=== PATIENT | female | born 1940 | race Caucasian/White ===

== ENCOUNTER → 2017-10-15 | Outpatient (CLI) | payer MEDICARE ==
[2017-10-15 10:29] LABS: Basophils # (A) 0.1 k/uL (0-0.2); Basophils % (A) 1 %; Eosinophils # (A) 0.1 k/uL (0-0.7); Eosinophils % (A) 2 %; HGB 14.1 gm/dL (11.4-16.0); Lymphocytes # (A) 2.6 k/uL (1.0-4.8); Lymphocytes % (A) 36 %; MCH 28.9 pg (25.0-35.0); MCHC 32.7 g/dL (31.0-37.0); MCV 88.4 fL (80.0-100.0); Mean Platelet Volume 6.6; Monocytes # (A) 0.4 k/uL (0-1.0); Monocytes % (A) 5 %; Neutrophils # (A) 3.9 k/uL (1.3-7.7); Neutrophils % (A) 54 %; Platelet Count 234 k/uL (150-450); RBC 4.87 m/uL (3.80-5.40); RDW 15.2 % (11.5-15.5); WBC 7.2 k/uL (3.8-10.6)
[2017-10-15 10:47] LABS: Albumin 3.9 g/dL (3.5-5.0); Calcium 9.3 mg/dL (8.4-10.2); Potassium 4.6 mmol/L (3.5-5.1); Total Bilirubin 0.3 mg/dL (0.2-1.3); Total Protein 6.1 g/dL (6.3-8.2); Uric Acid 4.7 mg/dL (3.7-7.4)
[2017-10-15 10:59] LABS: T4, Free (Free Thyroxine) 0.93 ng/dL (0.78-2.19)
[2017-10-15 11:25] LABS: Appearance,Urine Clear (Clear); Bacteria,Urine Few /hpf; Bilirubin,Urine Negative (Negative); Blood,Urine Negative (Negative); Color,Urine Yellow; Glucose,Urine (UA) Negative (Negative); Ketones,Urine Negative (Negative); Leukocyte Esterase,Urine Large (Negative); Mucus,Urine Rare /hpf; Nitrite,Urine Negative (Negative); PH, Urine 6.5 (5.0-8.0); Protein,Urine Negative (Negative); RBC,Urine 1 /hpf (0-5); Squamous Epithelial Cell,Urine 4 /hpf (0-4); Urobilinogen,Urine <2.0 mg/dL (<2.0); WBC,Urine 2 /hpf (0-5)
[2017-10-15 16:43] LABS: Gliadin AB IgA, Unit 0.2 U/mL
[2017-10-15 18:58] LABS: Hemoglobin A1C 6.2 % (4.0-6.0)
== END | disposition home or self-care (01) ==
LOC: LABWHC1 09:14
PROVIDERS: ATTEND Internal Medicine
DX: I10 Essential (primary) hypertension (principal); F32.89 Other specified depressive episodes; R19.7 Diarrhea, unspecified
CPT/HCPCS: 36415; 80053; 80061; 81001; 82550; 83036; 83516; 84439; 84443; 84550; 85025; 87045; 87046; 87328; 87329

== ENCOUNTER → 2018-05-18 | Outpatient (CLI) | payer MEDICARE ==
[~2018-05-18] MED LIST: REGADENOSON 0.4 MG/5 ML SYRINGE IV ONE
--- NOTE | 2018-05-18 11:06 | NM ---
EXAMINATION TYPE: NM stress lexiscan cardiolite DATE OF EXAM: 05/18/2018 COMPARISON: NONE HISTORY: Chest pain, hypertension, shortness of breath, family history of coronary artery disease, [place] PD, and history of tobacco abuse TECHNIQUE: After the intravenous administration of 10.18 mCi Tc 99m Sestamibi - Cardiolite resting S PECT images acquired 45 minutes post injection. The patient received 0.4mg Lexiscan, 25.5 mCi Tc 99m Sestamibi - Stress images obtained [address] injection FINDINGS: Review of stress and rest SPECT images demonstrates no distinct perfusion abnormality. Gated analysi s shows normal wall motion with an estimated left ventricular ejection fraction of 66 %. TID is calcu lated within normal limits at 1.05. IMPRESSION: No scintigraphic evidence for reversible ischemia.
--- NOTE | 2018-05-18 21:08 | EST ---
EXERCISE STRESS DATE OF SERVICE: 05/18/2018 AGE: 77 SEX: Fe HT: 5'3" WT: 190 pounds PROTOCOL: Lexiscan Cardiolite STAGE: DURATION OF EXERCISE: HEART RATE REST: 53 BLOOD PRESSURE REST: 151/78 MAXIMUM HEART RATE ACHIEVED: 71 MAXIMUM BLOOD PRESSURE: 111/70 85% MPHR: @@ 100% MPHR: @@ METS: @@ INDICATIONS: Chest pain. RESULTS: Baseline EKG revealed normal sinus rhythm with sinus arrhythmia and PACs with some pauses. With Lexiscan administration, heart rate changed from 53-71 beats per minute, blood pressure changed from 150/78 to 111/70, and then came back to baseline. EKG did not reveal any ST-segment changes to indicate ischemia. By EKG criteria, this is an unremarkable Lexiscan stress test. The nuclear scan results which are more pertinent, will be reported by the radiologist. MMROMYL / CHARLIEN: [id number] /
== END | disposition home or self-care (01) ==
LOC: RADNMMAIN 07:49
PROVIDERS: ATTEND Internal Medicine
DX: R07.9 Chest pain, unspecified (principal)
CPT/HCPCS: 93017; 78452; A9500; J2785

== ENCOUNTER 2018-05-19 11:37 | Observation (INO) | payer MEDICARE ==
[2018-05-19] MEDS ORDERED: SODIUM CHLORIDE 0.9% 500 ML 500 ML IV STA (12:11)
[2018-05-19] MEDS ORDERED: ASPIRIN 81 MG PO STA (12:11)
[2018-05-19] MEDS ORDERED: IPRATROPIUM-ALBUTEROL 3 ML NEB INHALATION STA (12:11)
[2018-05-19] MEDS ORDERED: NITROGLYCERIN OINT 1 INCH/GM PACKET TOPICAL STA (12:11)
--- NOTE | 2018-05-19 12:14 | ED ---
General Adult HPI - General Chief complaint: Shortness of Breath Stated complaint: SOB, lt sided arm pain Time Seen by Provider: 05/19/18 11:50 Source: patient, RN notes reviewed Mode of arrival: wheelchair Limitations: no limitations - History of Present Illness Initial comments: This is a 77-year-old female presents emergency Department complaining of shortness of breath and left arm pain. Patient states she has stress test yesterday because he had been noting something on her EKG and today she woke up started making the bed became short of breath had some chest pain which is now gone and had some pain in the left arm and became diaphoretic. Patient states she currently continues to be short of breath and have left arm pain but the chest pain and sweating is stopped. Patient states she is a smoker she does have controlled high blood pressure and she has a previous stent placed. Patient denies any recent fever chills but has had a dry cough since . Patient denies any leg swelling or calf tenderness. Patient denies any palpitations. Patient denies abdominal pain patient denies nausea vomiting or diarrhea. - Related Data Home Medications Medication Instructions Recorded Confirmed Aspirin EC [Ecotrin] 81 mg PO DAILY 02/18/14 05/19/18 Atenolol [Tenormin] 50 mg PO QAM 02/18/14 05/19/18 Omeprazole [PriLOSEC] 20 mg PO AC-BRKFST 02/18/14 05/19/18 amLODIPine [Norvasc] 2.5 mg PO HS 02/18/14 05/19/18 Levothyroxine Sodium [Synthroid] 25 mcg PO DAILY 05/19/18 05/19/18 Sertraline [Zoloft] 25 mg PO DAILY 05/19/18 05/19/18 Suvorexant [Belsomra] 20 mg PO HS 05/19/18 05/19/18 Allergies Allergy/AdvReac Type Severity Reaction Status Date / Time Penicillins Allergy Rash/Hives Verified 05/19/18 12:05 Review of Systems ROS Statement: Those systems with pertinent positive or pertinent negative responses have been documented in the HPI. ROS Other: All systems not noted in ROS Statement are negative. Past Medical History Past Medical History: COPD, GERD/Reflux, Hypertension Additional Past Medical History / Comment(s): HX SKIN CA, FREQ LOOSE STOOLS, CURRENTLY HAVING CONSTIPATION, STATED "HAD ONE TIME EPISODE OF LARGE AMOUT OF BLOOD RECENTLY W. STOOL.".HX HEMORRHOIDS History of Any Multi-Drug Resistant Organisms: None Reported Past Surgical History: Heart Catheterization With Stent Additional Past Surgical History / Comment(s): Cholonoscopy (02/21/2014) Additional Past Anesthesia/Blood Transfusion Reaction / Comment(s): NEVER HAS HAD GENERAL ANESTHESIA or blood trans Date of Last Stent Placement:: Past Psychological History: No Psychological Hx Reported Smoking Status: Current every day smoker Past Alcohol Use History: Occasional Past Drug Use History: None Reported General Exam - General Exam Comments Initial Comments: GENERAL: Patient is well-developed and well-nourished. Patient is nontoxic and well- hydrated and is in mild distress. ENT: Neck is soft and supple. No significant lymphadenopathy is noted. Oropharynx is clear. Moist mucous membranes. Neck has full range of motion without eliciting any pain. EYES: The sclera were anicteric and conjunctiva were pink and moist. Extraocular movements were intact and pupils were equal round and reactive to light. Eyelids were unremarkable. PULMONARY: Expiratory wheezing diffusely CARDIOVASCULAR: There is a regular rate and rhythm without any murmurs gallops or rubs. ABDOMEN: Soft and nontender with normal bowel sounds. SKIN: Skin is clear with no lesions or rashes and otherwise unremarkable. NEUROLOGIC: Patient is alert and oriented x3. Cranial nerves II through XII are grossly intact. Motor and sensory are also intact. Normal speech, volume and content. Symmetrical smile. MUSCULOSKELETAL: Normal extremities with adequate strength and full range of motion. No lower extremity swelling or edema. No calf tenderness. LYMPHATICS: No significant lymphadenopathy is noted PSYCHIATRIC: Normal psychiatric evaluation. Limitations: no limitations Course Vital Signs 05/19/18 05/19/18 05/19/18 11:51 12:42 12:46 Temperature 97.6 F Pulse Rate 51 L 56 L 60 Respiratory 18 Rate Blood Pressure 127/84 O2 Sat by Pulse 99 Oximetry 05/19/18 13:13 Temperature Pulse Rate 58 L Respiratory 18 Rate Blood Pressure 155/72 O2 Sat by Pulse 98 Oximetry Medical Decision Making - Medical Decision Making EKG shows sinus rhythm with a occasional PAC at 62 bpm VA interval is 168 QRSs 80 QT interval 422 QTC is 428. Patient's EKG shows no ST segment elevation or depression. I started the patient heparin because the unstable angina. I gave the patient has been Nitropaste. I also gave the patient a breathing treatment because she was wheezing diffusely. The breathing treatment seemed to help her with her difficulty breathing. She continued to have some left arm pain but no chest pain in the emergency department. I spoke with Dr. Malone she accepted the patient admitted the patient I wrote admitting orders I consult cardiology. I continued as per Nitropaste and heparin on the floor as well as albuterol treatments. - Lab Data Result diagrams: 05/19/18 12:31 05/19/18 12:31 Lab Results 05/19/18 05/19/18 05/19/18 Range/Units 12:31 12: 12:31 WBC 11.3 H (3.8-10.6) k/uL RBC 4.76 (3.80-5.40) m/uL Hgb 13.8 (11.4-16.0) gm/dL Hct 42.3 (34.0-46.0) % MCV 88.9 (80.0-100.0) fL MCH 29.0 (25.0-35.0) pg MCHC 32.6 (31.0-37.0) g/dL RDW 14.3 (11.5-15.5) % Plt Count 292 (150-450) k/uL Neutrophils % 60 % Lymphocytes % 30 % Monocytes % 6 % Eosinophils % 2 % Basophils % 1 % Neutrophils # 6.8 (1.3-7.7) k/uL Lymphocytes # 3.4 (1.0-4.8) k/uL Monocytes # 0.7 (0-1.0) k/uL Eosinophils # 0.2 (0-0.7) k/uL Basophils # 0.1 (0-0.2) k/uL PT (9.0-12.0) sec INR (<1.2) APTT (22.0-30.0) sec Sodium 133 L (137-145) mmol/L Potassium 4.4 (3.5-5.1) mmol/L Chloride 100 (98-107) mmol/L Carbon Dioxide 27 (22-30) mmol/L Anion Gap 6 mmol/L BUN 18 H (7-17) mg/dL Creatinine 0.86 (0.52-1.04) mg/dL Est GFR (CKD-EPI)AfAm 75 (>60 ml/min/1.73 sqM) Est GFR (CKD-EPI)NonAf 65 (>60 ml/min/1.73 sqM) Glucose 91 (74-99) mg/dL Calcium 9.1 (8.4-10.2) mg/dL Magnesium 1.8 (1.6-2.3) mg/dL Total Bilirubin 0.5 (0.2-1.3) mg/dL AST 21 (14-36) U/L ALT 32 (9-52) U/L Alkaline Phosphatase 92 (38-126) U/L Total Creatine Kinase <20 L (30-135) U/L CK-MB (CK-2) <0.2 (0.0-2.4) ng/mL CK-MB (CK-2) Rel Index Troponin I <0.012 (0.000-0.034) ng/mL NT-Pro-B Natriuret Pep pg/mL Total Protein 6.0 L (6.3-8.2) g/dL Albumin 3.6 (3.5-5.0) g/dL 05/19/18 05/19/18 Range/Units 12:31 12:31 WBC (3.8-10.6) k/uL RBC (3.80-5.40) m/uL Hgb (11.4-16.0) gm/dL Hct (34.0-46.0) % MCV (80.0-100.0) fL MCH (25.0-35.0) pg MCHC (31.0-37.0) g/dL RDW (11.5-15.5) % Plt Count (150-450) k/uL Neutrophils % % Lymphocytes % % Monocytes % % Eosinophils % % Basophils % % Neutrophils # (1.3-7.7) k/uL Lymphocytes # (1.0-4.8) k/uL Monocytes # (0-1.0) k/uL Eosinophils # (0-0.7) k/uL Basophils # (0-0.2) k/uL PT 10.3 (9.0-12.0) sec INR 1.0 (<1.2) APTT 23.3 (22.0-30.0) sec Sodium (137-145) mmol/L Potassium (3.5-5.1) mmol/L Chloride (98-107) mmol/L Carbon Dioxide (22-30) mmol/L Anion Gap mmol/L BUN (7-17) mg/dL Creatinine (0.52-1.04) mg/dL Est GFR (CKD-EPI)AfAm (>60 ml/min/1.73 sqM) Est GFR (CKD-EPI)NonAf (>60 ml/min/1.73 sqM) Glucose (74-99) mg/dL Calcium (8.4-10.2) mg/dL Magnesium (1.6-2.3) mg/dL Total Bilirubin (0.2-1.3) mg/dL AST (14-36) U/L ALT (9-52) U/L Alkaline Phosphatase (38-126) U/L Total Creatine Kinase (30-135) U/L CK-MB (CK-2) (0.0-2.4) ng/mL CK-MB (CK-2) Rel Index Troponin I (0.000-0.034) ng/mL NT-Pro-B Natriuret Pep 292 pg/mL Total Protein (6.3-8.2) g/dL Albumin (3.5-5.0) g/dL Critical Care Time Critical Care Time: Yes Total Critical Care Time: 35 Disposition Clinical Impression: Acute exacerbation of chronic obstructive airways disease, Unstable angina Disposition: ADMITTED IP TO THIS HOSP Referrals: Lily Davis MD [Primary Care Provider] - 1-2 days Time of Disposition: 14:35
[2018-05-19 12:49] LABS: Basophils # (A) 0.1 k/uL (0-0.2); Basophils % (A) 1 %; Eosinophils # (A) 0.2 k/uL (0-0.7); Eosinophils % (A) 2 %; HCT 42.3 % (34.0-46.0); HGB 13.8 gm/dL (11.4-16.0); Lymphocytes # (A) 3.4 k/uL (1.0-4.8); Lymphocytes % (A) 30 %; MCHC 32.6 g/dL (31.0-37.0); MCV 88.9 fL (80.0-100.0); Mean Platelet Volume 6.6; Monocytes # (A) 0.7 k/uL (0-1.0); Monocytes % (A) 6 %; Neutrophils # (A) 6.8 k/uL (1.3-7.7); Neutrophils % (A) 60 %; Platelet Count 292 k/uL (150-450); RBC 4.76 m/uL (3.80-5.40); RDW 14.3 % (11.5-15.5); WBC 11.3 k/uL (3.8-10.6)
[2018-05-19 12:55] LABS: Partial Thromboplastin Time 23.3 sec (22.0-30.0); Prothrombin Time 10.3 sec (9.0-12.0)
[2018-05-19 13:04] LABS: Albumin 3.6 g/dL (3.5-5.0); Calcium 9.1 mg/dL (8.4-10.2); Magnesium 1.8 mg/dL (1.6-2.3); Potassium 4.4 mmol/L (3.5-5.1); Total Bilirubin 0.5 mg/dL (0.2-1.3)
--- NOTE | 2018-05-19 13:08 | XR ---
EXAMINATION TYPE: XR chest 2V DATE OF EXAM: 05/19/2018 COMPARISON: Chest x-ray May 05, 2013. HISTORY: Difficulty in breathing and left arm pain. TECHNIQUE: Frontal and lateral views of the chest are obtained. FINDINGS: Some eventration of right hemidiaphragm is present. There is chronic parenchymal change wit hout suspicious new focal air space opacity, pleural effusion, or pneumothorax seen. The cardiac alex houette size remains enlarged with atherosclerotic thoracic aorta. The osseous structures are intac t. IMPRESSION: Chronic parenchymal change and cardiomegaly without acute pulmonary process.
[2018-05-19 13:16] LABS: Creatine Kinase <20 U/L (30-135)
[2018-05-19 13:28] LABS: Creatine Kinase MB <0.2 ng/mL (0.0-2.4); Troponin I <0.012 ng/mL (0.000-0.034)
[2018-05-19] MEDS ORDERED: HEPARIN SODIUM,PORCINE 5,000 UNIT/ML 1 ML VIAL IV ONE (14:33)
[2018-05-19] MEDS ORDERED: NITROGLYCERIN SL TABS 0.4 MG TAB SUBLINGUAL PRN (14:41)
[2018-05-19] MEDS ORDERED: HEPARIN SOD,PORK IN 0.45% NACL 25,000 UNIT in 0.45% NACL 1 250ML.BAG IV SCH (14:45)
[2018-05-19] MEDS: IPRATROPIUM-ALBUTEROL 3 ML NEB INHALATION SCH ×3 (15:50→22:55)
--- NOTE | 2018-05-19 18:07 | P.HPIM ---
History of Present Illness H&P Date: 05/19/18 Chief Complaint: Chest pain shortness of breath This 77-year-old pleasant lady patient of . he has underlying history of COPD , hypertension, skin cancer, admitted emergency room secondary to increasing shortness of breath, as well as left arm pain. Patient has had a stress test yesterday, results are negative for stress induced ischemia, patient is currently a smoker, has high blood pressure, no known history off CVA in the past however she has cardiac stents in the past. She also has a dry cough since 3 weeks ago, increasing shortness of breath, white sputumdenies any sick contacts, with no new GI complaints. Emergency room IV heparin is started on most likely with suspicion of unstable angina, EKG showed occasional PAC at sinus rhythm, heart rate 62, daily interval is normal, no acute ST-T wave changes noted. Patient is also admitted for tracheal bronchitis, reactive airway disease chest x-ray shows chronic parenchymal change, cardiomegaly without acute pulmonary process, no pleural effusion, consults were made with cardiology, as well as treatment for COPD at this time. Review of Systems Constitutional: Reports as per HPI, Denies anorexia, Denies chills, Denies chronic headaches, Denies chronic pain, Denies daytime sleepiness, Denies fatigue, Denies fever, Denies lethargy, Denies malaise, Denies night sweats, Denies poor appetite, Denies sweats, Denies weakness, Denies weight gain, Denies weight loss Ears, nose, mouth and throat: Reports as per HPI, Denies ant. neck pain, Denies bleeding gums, Denies dental pain, Denies dysphagia, Denies epistaxis, Denies headache, Denies hoarseness, Denies mouth pain, Denies nasal congestion, Denies nasal discharge, Denies neck fullness/pressure, Denies neck lump, Denies nose pain, Denies odynophagia, Denies post-nasal drip, Denies sinus pain, Denies sinus pressure, Denies swelling in mouth, Denies swelling in throat, Denies sore throat, Denies vertigo, Denies voice changes Cardiovascular: Reports as per HPI, Reports chest pain, Reports decreased exercise tolerance, Reports dyspnea on exertion, Reports shortness of breath Respiratory: Reports as per HPI, Reports cough, Reports dyspnea, Denies congestion, Denies cough with sputum, Denies excessive sputum, Denies hemoptysis , Denies home oxygen, Denies pain, Denies pain on inspiration, Denies pleurisy, Denies respiratory infections, Denies sleep apnea, Denies snoring, Denies wheezing Gastrointestinal: Reports as per HPI Genitourinary: Reports as per HPI Menstruation: Reports as per HPI Musculoskeletal: Reports as per HPI, Denies arm numbness/tingling, Denies atrophy, Denies fractures, Denies frequent falls, Denies gait dysfunction, Denies hot joints, Denies leg numbness/tingling, Denies limitation of motion, Denies loss of height, Denies low back pain, Denies morning stiffness, Denies muscle cramps, Denies muscle weakness, Denies myalgias, Denies neck pain, Denies neck stiffness, Denies prior amputations, Denies redness of joints, Denies shooting arm pain, Denies shooting leg pain Integumentary: Reports as per HPI, Denies acne, Denies boils, Denies brittle nails, Denies change in hair/nails, Denies color changes, Denies darkening of skin, Denies depigmentation, Denies dryness, Denies foot/leg ulcers, Denies growths, Denies hirsutism, Denies lesions, Denies onychomycosis, Denies pruritus , Denies rash, Denies sores, Denies striae, Denies unusual bruising, Denies wounds Neurological: Reports as per HPI, Denies aphasia, Denies ataxia, Denies balance difficulties, Denies burning pain, Denies change in mentation, Denies change in smell/taste, Denies change in speech, Denies confusion, Denies convulsions, Denies double vision, Denies gait dysfunction, Denies head injury, Denies headaches, Denies hearing difficulties, Denies lack of coordination, Denies loss of vision, Denies memory loss, Denies migraines, Denies motor disturbance, Denies numbness, Denies paralysis, Denies paresthesias, Denies seizures, Denies sensory deficit, Denies spasticity, Denies syncope, Denies tic, Denies tingling , Denies transient paralysis, Denies tremors, Denies vertigo, Denies weakness, Denies visual changes Psychiatric: Reports as per HPI Endocrine: Reports as per HPI, Denies cold intolerance, Denies deepening of the voice, Denies excessive sweating, Denies excessive thirst, Denies fatigue, Denies flushing, Denies heat intolerance, Denies high blood sugars, Denies increase in ring/shoe/hat size, Denies low blood sugars, Denies nocturia, Denies palpitations, Denies polydipsia, Denies polyphagia, Denies polyuria, Denies proptosis, Denies recent glucocorticoid use, Denies thyroid mass, Denies weight change Hematologic/Lymphatic: Reports as per HPI, Denies easy bleeding, Denies easy bruising, Denies lymphadenopathy, Denies lymphedema, Denies thrombophilia Allergic/Immunologic: Reports as per HPI, Denies allergic rhinitis, Denies anaphylaxis, Denies angioedema, Denies gluten intolerance, Denies persistent infections, Denies seasonal allergies, Denies urticaria, Denies wheezing Past Medical History Past Medical History: COPD, GERD/Reflux, Hypertension Additional Past Medical History / Comment(s): HX SKIN CA, FREQ LOOSE STOOLS, CURRENTLY HAVING CONSTIPATION, STATED "HAD ONE TIME EPISODE OF LARGE AMOUT OF BLOOD RECENTLY W. STOOL.".HX HEMORRHOIDS History of Any Multi-Drug Resistant Organisms: None Reported Past Surgical History: Heart Catheterization With Stent Additional Past Surgical History / Comment(s): Cholonoscopy (02/21/2014) Additional Past Anesthesia/Blood Transfusion Reaction / Comment(s): NEVER HAS HAD GENERAL ANESTHESIA or blood trans Date of Last Stent Placement:: -2005 Past Psychological History: No Psychological Hx Reported Smoking Status: Current every day smoker Past Alcohol Use History: Occasional Past Drug Use History: None Reported - Past Family History Mother Additional Family Medical History / Comment(s): depression Father Family Medical History: Congestive Heart Failure (CHF) Additional Family Medical History / Comment(s): heart disease Medications and Allergies Home Medications Medication Instructions Recorded Confirmed Type Aspirin EC [Ecotrin] 81 mg PO DAILY 02/18/14 05/19/18 History Atenolol [Tenormin] 50 mg PO QAM 02/18/14 05/19/18 History Omeprazole [PriLOSEC] 20 mg PO AC-BRKFST 02/18/14 05/19/18 History amLODIPine [Norvasc] 2.5 mg PO HS 02/18/14 05/19/18 History Levothyroxine Sodium [Synthroid] 25 mcg PO DAILY 05/19/18 05/19/18 History Sertraline [Zoloft] 25 mg PO DAILY 05/19/18 05/19/18 History Suvorexant [Belsomra] 20 mg PO HS 05/19/18 05/19/18 History Allergies Allergy/AdvReac Type Severity Reaction Status Date / Time Penicillins Allergy Rash/Hives Verified 05/19/18 12:05 Physical Exam Vitals: Vital Signs Temp Pulse Resp BP Pulse Ox 05/19/18 14:52 60 18 149/65 99 05/19/18 13:13 58 L 18 155/72 98 05/19/18 12:46 60 05/19/18 12:42 56 L 05/19/18 11:51 97.6 F 51 L 18 127/84 99 Intake and Output 05/19/18 05/19/18 05/19/18 06:59 14:59 22:59 Other: Weight 86.183 kg - Constitutional General appearance: cooperative, no acute distress - EENT Eyes: anicteric sclerae, EOMI, PERRLA, dentition normal, normal appearance ENT: hearing grossly normal, NA/AT, normal oropharynx - Neck Neck: normal ROM - Respiratory Respiratory: bilateral: CTA, negative: diminished, dullness, rales, rhonchi - Cardiovascular Rhythm: regular Heart sounds: normal: S1, S2 Abnormal Heart Sounds: systolic murmur, no diastolic murmur, no rub, no S3 Gallop, no S4 Gallop, no click, no other - Gastrointestinal General gastrointestinal: no absent bowel sounds, no decreased bowel sounds, no distended, no hepatomegaly, no hyperactive bowel sounds, normal bowel sounds, no organomegaly, no rigid, no scaphoid, soft, no splenomegaly, no tenderness, no umbilical hernia, no ventral hernia - Integumentary Integumentary: decreased turgor, normal - Neurologic Neurologic: CNII-XII intact - Musculoskeletal Musculoskeletal: gait normal, strength equal bilaterally - Psychiatric Psychiatric: A&O x's 3, appropriate affect, intact judgment & insight Results CBC & Chem 7: 05/19/18 12:31 05/19/18 12:31 Labs: Abnormal Lab Results - Last 24 Hours (Table) 05/19/18 05/19/18 05/19/18 Range/Units 12: 12:31 12:31 WBC 11.3 H (3.8-10.6) k/uL Sodium 133 L (137-145) mmol/L BUN 18 H (7-17) mg/dL Total Creatine Kinase <20 L (30-135) U/L Total Protein 6.0 L (6.3-8.2) g/dL Laboratory Results WBC 11.3 k/uL (3.8-10.6) H 05/19/18 12:31 RBC 4.76 m/uL (3.80-5.40) 05/19/18 12:31 Hgb 13.8 gm/dL (11.4-16.0) 05/19/18 12: Hct 42.3 % (34.0-46.0) 05/19/18 12: MCV 88.9 fL (80.0-100.0) 05/19/18 12: MCH 29.0 pg (25.0-35.0) 05/19/18 12: MCHC 32.6 g/dL (31.0-37.0) 05/19/18 12: RDW 14.3 % (11.5-15.5) 05/19/18 12:31 Plt Count 292 k/uL (150-450) 05/19/18 12: Neutrophils % 60 % 05/19/18 12: Lymphocytes % 30 % 05/19/18 12: Monocytes % 6 % 05/19/18 12:31 Eosinophils % 2 % 05/19/18 12: Basophils % 1 % 05/19/18 12: Neutrophils # 6.8 k/uL (1.3-7.7) 05/19/18 12: Lymphocytes # 3.4 k/uL (1.0-4.8) 05/19/18 12: Monocytes # 0.7 k/uL (0-1.0) 05/19/18 12: Eosinophils # 0.2 k/uL (0-0.7) 05/19/18 12: Basophils # 0.1 k/uL (0-0.2) 05/19/18 12: PT 10.3 sec (9.0-12.0) 05/19/18 12:31 INR 1.0 (<1.2) 05/19/18 12:31 APTT 23.3 sec (22.0-30.0) 05/19/18 12:31 Sodium 133 mmol/L (137-145) L 05/19/18 12:31 Potassium 4.4 mmol/L (3.5-5.1) 05/19/18 12:31 Chloride 100 mmol/L (98-107) 05/19/18 12:31 Carbon Dioxide 27 mmol/L (22-30) 05/19/18 12:31 Anion Gap 6 mmol/L 05/19/18 12:31 BUN 18 mg/dL (7-17) H 05/19/18 12:31 Creatinine 0.86 mg/dL (0.52-1.04) 05/19/18 12:31 Est GFR (CKD-EPI)AfAm 75 (>60 ml/min/1.73 sqM) 05/19/18 12:31 Est GFR (CKD-EPI)NonAf 65 (>60 ml/min/1.73 sqM) 05/19/18 12:31 Glucose 91 mg/dL (74-99) 05/19/18 12:31 Calcium 9.1 mg/dL (8.4-10.2) 05/19/18 12:31 Magnesium 1.8 mg/dL (1.6-2.3) 05/19/18 12:31 Total Bilirubin 0.5 mg/dL (0.2-1.3) 05/19/18 12:31 AST 21 U/L (14-36) 05/19/18 12:31 ALT 32 U/L (9-52) 05/19/18 12:31 Alkaline Phosphatase 92 U/L (38-126) 05/19/18 12:31 Total Creatine Kinase <20 U/L (30-135) L 05/19/18 12:31 CK-MB (CK-2) <0.2 ng/mL (0.0-2.4) 05/19/18 12:31 CK-MB (CK-2) Rel Index 05/19/18 12:31 Troponin I <0.012 ng/mL (0.000-0.034) 05/19/18 12:31 NT-Pro-B Natriuret Pep 292 pg/mL 05/19/18 12:31 Total Protein 6.0 g/dL (6.3-8.2) L 05/19/18 12:31 Albumin 3.6 g/dL (3.5-5.0) 05/19/18 12:31 Thrombosis Risk Factor Assmnt - DVT/VTE Prophylaxis DVT/VTE Prophylaxis: Pharmacologic Prophylaxis ordered Assessment and Plan Plan: 1. COPD exacerbation, nonsmoker, patient would be given IV Solu Medrol as well as nebulized treatments, cough suppressants, 2. chest pain however with left arm pain and unstable angina is in the differential, review of the stress test performed on 05/18/2018 shows no stress- induced ischemia, using a Lexiscan imaging study. Patient currently was given IV heparin cardiology to see suspect pleurisy secondary to ongoing cough 3. GERD on maintenance omeprazole 20 mg daily 4. CAD with known cardiac stents in the past on atenolol 50 mg daily aspirin 81 mg Norvasc 2.5 mg at bedtime 5. Tobacco use, patient's offered tobacco cessation program, nicotine patches 6. 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
[2018-05-19] MEDS: methylPREDNISolone SOD SUCCI 40 MG/ML 1 ML VIAL IV SCH (18:19)
[2018-05-19] MEDS: NITROGLYCERIN OINT 1 INCH/GM PACKET TOPICAL SCH (18:20)
[2018-05-19] MEDS ORDERED: MORPHINE SULFATE 2 MG/ML SYRINGE IVP PRN (18:27)
[2018-05-19] MEDS ORDERED: ALPRAZolam 0.25 MG TAB PO PRN (18:29)
[2018-05-19 19:20] LABS: Creatine Kinase <20 U/L (30-135)
[2018-05-19 19:33] LABS: Creatine Kinase MB 0.3 ng/mL (0.0-2.4); Troponin I <0.012 ng/mL (0.000-0.034)
[2018-05-19 19:44] VITALS: RESP 18
[2018-05-19] MEDS ORDERED: NON-FORMULARY DRUG (Suvorexant [Belsomra] 20 MG) PO SCH (21:00)
[2018-05-19] MEDS ORDERED: amLODIPine 2.5 MG TAB PO SCH (21:00)
[2018-05-19] MEDS ORDERED: MELATONIN 5 MG TABLET PO SCH (21:00)
[2018-05-20] MEDS: NITROGLYCERIN OINT 1 INCH/GM PACKET TOPICAL SCH ×2 (00:10→05:04)
[2018-05-20] MEDS: methylPREDNISolone SOD SUCCI 40 MG/ML 1 ML VIAL IV SCH ×3 (00:51→12:48)
[2018-05-20 01:10] LABS: Creatine Kinase <20 U/L (30-135)
[2018-05-20 01:23] LABS: Creatine Kinase MB 0.2 ng/mL (0.0-2.4); Troponin I <0.012 ng/mL (0.000-0.034)
[2018-05-20] MEDS: IPRATROPIUM-ALBUTEROL 3 ML NEB INHALATION SCH ×3 (03:08→11:42)
[2018-05-20] MEDS ORDERED: LEVOTHYROXINE 25 MCG TAB PO SCH (06:30)
[2018-05-20 06:48] LABS: Cholesterol 158 mg/dL (<200); HDL Cholesterol 62 mg/dL (40-60); LDL Cholesterol,Calculated 83 mg/dL (0-99); Triglycerides 63 mg/dL (<150)
[2018-05-20] MEDS ORDERED: PANTOPRAZOLE 40 MG TABLET PO SCH (07:30)
[2018-05-20] MEDS ORDERED: ATENOLOL 50 MG TAB PO SCH (09:00)
[2018-05-20] MEDS ORDERED: SERTRALINE 25 MG TAB PO SCH (09:00)
[2018-05-20] MEDS ORDERED: ASPIRIN 81 MG PO SCH (09:00)
[2018-05-20] MEDS ORDERED: ASPIRIN 325 MG TAB PO SCH (09:00)
--- NOTE | 2018-05-20 11:32 | P.CRDCN ---
History of Present Illness History of present illness: This is a pleasant 77-year-old female past medical history significant for coronary artery disease s/p stent placement in 2006, hypertension, COPD and chronic nicotine dependence. 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 We have been asked to see her in consultation for chest pain. She states she has been feeling increasingly short of breath recently. She has mentioned this to her PCP and was sent for a stress test as an outpatient earlier this week. That was read and reported as negative for reversible cardiac ischemia. However, yesterday she developed some pain in the left shoulder with radiation down the arm. She denies any pain in the chest or precordial region, dizziness or palpitations. She describes having a dry cough for the previous few weeks with no sputum production. EKG reveals sinus mechanism with frequent PACs noted. Chest x-ray reveals chronic parenchymal change with no acute process. Laboratory data reviewed, WBC 11.3, cardiac enzymes negative 3, creatinine 0.86 , potassium 4.4, NT proBNP 292 and magnesium 1.8. Lipid profile, LDL 83 and HDL 62. Current cardiac medications include amlodipine 2.5 mg daily, aspirin 81 mg daily and atenolol 50 mg daily. Lexiscan stress test performed as an outpatient 05/18/2018 negative for reversible cardiac ischemia. Ejection fraction 66%. At the time of my exam: CONSTITUTIONAL: Denies fever. Denies chills. EYES: Denies blurred vision. Denies vision changes. Denies eye pain. EARS, NOSE, MOUTH & THROAT: Denies headache. Denies sore throat. Denies ear pain. CARDIOVASCULAR: Denies chest pain. Denies shortness of breath. Denies orthopnea. Denies PND. Denies palpitations. RESPIRATORY: Denies cough. GASTROINTESTINAL: Denies abdominal pain. Denies diarrhea. Denies constipation. Denies nausea. Denies vomiting. MUSCULOSKELETAL: Denies myalgias. INTEGUMENTARY: Denies pruitis. Denies rash. NEUROLOGIC: Denies numbness. Denies tingling. Denies weakness. PSYCHIATRIC: Denies anxiety. Denies depression. ENDOCRINE: Denies fatigue. Denies weight change. Denies polydipsia. Denies polyurina. GENITOURINARY: Denies burning, hematuria or urgency with micturation. HEMATOLOGIC: Denies history of anemia. Denies bleeding. Blood pressure 155/73 heart rate 68 afebrile maintaining oxygen saturation on room air GENERAL: This is a 77-year-old female in no apparent distress at the time of my examination. HEENT: Head is atraumatic, normocephalic. Pupils are equal, round. Sclerae anicteric. Conjunctivae are clear. Mucous membranes of the mouth are moist. Neck is supple. There is no jugular venous distention. No carotid bruit is heard. LUNGS: Clear to auscultation no wheezes, rales or rhonchi. No chest wall tenderness is noted on palpation or with deep breathing. HEART: Irregular rate and rhythm without murmurs, rubs or gallops. S1 and S2 heard. ABDOMEN: Soft, nontender. Bowel sounds are heard. No organomegaly noted. EXTREMITIES: No evidence of peripheral edema and no calf tenderness noted. VASCULAR: Radial and dorsalis pedis pulses palpated, no evidence of clubbing. NEUROLOGIC: Patient is awake, alert and oriented x3. ASSESSMENT Chest pain, atypical. An acute coronary event has been ruled out. Recent stress test performed as an outpatient negative for reversibility. Leukocytosis History of coronary artery disease status post stent placement 2005 exact details unavailable. Hypertension COPD Chronic nicotine dependence PLAN An acute coronary event has been ruled out. Recent stress test performed as an outpatient negative for reversible cardiac ischemia. Obtain 2-D echocardiogram and Doppler study to assess cardiac structure and function. Discomfort left arm possibly secondary to a musculoskeletal strain. No further cardiac workup at this time. Follow up with Dr. Brambila in the office in 2-3 weeks. Thank you kindly for this consultation. Nurse Practitioner note has been reviewed, I agree with a documented findings and plan of care. Patient was seen and examined. Past Medical History Past Medical History: COPD, GERD/Reflux, Hypertension Additional Past Medical History / Comment(s): HX SKIN CA, FREQ LOOSE STOOLS, CURRENTLY HAVING CONSTIPATION, STATED "HAD ONE TIME EPISODE OF LARGE AMOUT OF BLOOD RECENTLY W. STOOL.".HX HEMORRHOIDS History of Any Multi-Drug Resistant Organisms: None Reported Past Surgical History: Heart Catheterization With Stent Additional Past Surgical History / Comment(s): Cholonoscopy (02/21/2014) Past Anesthesia/Blood Transfusion Reactions: No Reported Reaction Additional Past Anesthesia/Blood Transfusion Reaction / Comment(s): NEVER HAS HAD GENERAL ANESTHESIA or blood trans Date of Last Stent Placement:: 3-2005 Past Psychological History: No Psychological Hx Reported Smoking Status: Current every day smoker Past Alcohol Use History: Occasional Past Drug Use History: None Reported - Past Family History Mother Additional Family Medical History / Comment(s): depression Father Family Medical History: Congestive Heart Failure (CHF) Additional Family Medical History / Comment(s): heart disease Medications and Allergies Home Medications Medication Instructions Recorded Confirmed Type Aspirin EC [Ecotrin] 81 mg PO DAILY 02/18/14 05/19/18 History Atenolol [Tenormin] 50 mg PO QAM 02/18/14 05/19/18 History Omeprazole [PriLOSEC] 20 mg PO AC-BRKFST 02/18/14 05/19/18 History amLODIPine [Norvasc] 2.5 mg PO HS 02/18/14 05/19/18 History Levothyroxine Sodium [Synthroid] 25 mcg PO DAILY 05/19/18 05/19/18 History Sertraline [Zoloft] 25 mg PO DAILY 05/19/18 05/19/18 History Suvorexant [Belsomra] 20 mg PO HS 05/19/18 05/19/18 History Allergies Allergy/AdvReac Type Severity Reaction Status Date / Time Penicillins Allergy Rash/Hives Verified 05/19/18 12:05 Physical Exam Vitals: Vital Signs Temp Pulse Pulse Resp BP BP Pulse Ox 05/20/18 04:00 97.3 F L 75 18 120/57 92 L 05/20/18 03:19 94 05/20/18 03:08 79 05/20/18 00:00 97.9 F 83 18 126/61 95 05/19/18 23:05 69 05/19/18 22:55 69 05/19/18 20:00 98.2 F 50 L 18 138/82 96 05/19/18 19:43 108 H 18 05/19/18 19:33 117 H 16 05/19/18 15:59 51 L 16 05/19/18 15:51 47 L 18 05/19/18 15:41 97.6 F 48 L 18 168/69 98 05/19/18 15:11 98.2 F 05/19/18 14:52 60 18 149/65 99 05/19/18 13:13 58 L 18 155/72 98 05/19/18 12:46 60 05/19/18 12:42 56 L 05/19/18 11:51 97.6 F 51 L 18 127/84 99 Intake and Output 05/19/18 05/20/18 05/20/18 22:59 06:59 14:59 Intake Total 240 Balance 240 Intake: Oral 240 Other: # Voids 2 2 Weight 87.8 kg Results 05/19/18 12:31 05/19/18 12:31 Cardiac Enzymes 05/19/18 05/19/18 05/19/18 Range/Units 12:31 12:31 18:37 AST 21 (14-36) U/L CK-MB (CK-2) <0.2 0.3 (0.0-2.4) ng/mL Troponin I <0.012 <0.012 (0.000-0.034) ng/mL 05/20/18 Range/Units 00:39 AST (14-36) U/L CK-MB (CK-2) 0.2 (0.0-2.4) ng/mL Troponin I <0.012 (0.000-0.034) ng/mL Coagulation 05/19/18 05/19/18 05/20/18 Range/Units 12:31 21:03 05:57 PT 10.3 (9.0-12.0) sec APTT 23.3 74.6 H 64.3 H (22.0-30.0) sec Lipids 05/20/18 Range/Units 05:57 Triglycerides 63 (<150) mg/dL Cholesterol 158 (<200) mg/dL HDL Cholesterol 62 H (40-60) mg/dL CBC 05/19/18 Range/Units 12:31 WBC 11.3 H (3.8-10.6) k/uL RBC 4.76 (3.80-5.40) m/uL Hgb 13.8 (11.4-16.0) gm/dL Hct 42.3 (34.0-46.0) % Plt Count 292 (150-450) k/uL Comprehensive Metabolic Panel 05/19/18 Range/Units 12:31 Sodium 133 L (137-145) mmol/L Potassium 4.4 (3.5-5.1) mmol/L Chloride 100 (98-107) mmol/L Carbon Dioxide 27 (22-30) mmol/L BUN 18 H (7-17) mg/dL Creatinine 0.86 (0.52-1.04) mg/dL Glucose 91 (74-99) mg/dL Calcium 9.1 (8.4-10.2) mg/dL AST 21 (14-36) U/L ALT 32 (9-52) U/L Alkaline Phosphatase 92 (38-126) U/L Total Protein 6.0 L (6.3-8.2) g/dL Albumin 3.6 (3.5-5.0) g/dL Current Medications Generic Name Dose Route Start Last Admin Trade Name Freq PRN Reason Stop Dose Admin Albuterol/Ipratropium 3 ml 05/19/18 16:00 05/20/18 03:08 Duoneb 0.5 Mg-3 Mg/3 Ml Soln INHALATION 3 ml RT-Q4H KRISTINA Administration Alprazolam 0.25 mg 05/19/18 18:29 Xanax PO BID PRN Anxiety Amlodipine Besylate 2.5 mg 05/19/18 21:00 05/19/18 21:09 Norvasc PO 2.5 mg HS KRISTINA Administration Aspirin 81 mg 05/20/18 09:00 Aspirin PO DAILY [facility] Atenolol 50 mg 05/20/18 09:00 Tenormin PO QAM [facility] Heparin Sodium/Sodium Chloride 250 mls @ 9.99 mls/hr 05/19/18 14:45 05/19/18 14:47 25,000 unit/ Sodium Chloride IV 11.6 units/kg/hr .Q24H KRISTINA 9.99 mls/hr Administration Protocol 11.6 UNITS/KG/HR Levothyroxine Sodium 25 mcg 05/20/18 06:30 05/20/18 05:50 Synthroid PO Not Given 0630 KRISTINA Melatonin 10 mg 05/19/18 21:00 05/19/18 21:10 Melatonin PO 10 mg HS [facility] Administration Methylprednisolone Sodium Succinate 40 mg 05/19/18 18:15 05/20/18 05:57 Solu-Medrol IV 40 mg Q6HR KRISTINA Administration Morphine Sulfate 1 mg 05/19/18 18:27 05/20/18 00:48 Morphine Sulfate (Inj) IVP 1 mg Q3H PRN Administration Pain/Discomfort Nitroglycerin 1 inch 05/19/18 18:00 05/20/18 05:04 Nitro-Bid Oint TOPICAL Not Given Q6HR KRISTINA Nitroglycerin 0.4 mg 05/19/18 14:41 Nitrostat SUBLINGUAL Q5M PRN Chest Pain Non-Formulary Medication 20 mg 05/19/18 21:00 05/19/18 21:16 Suvorexant [Belsomra] PO Not Given HS KRISTINA Pantoprazole Sodium 40 mg 05/20/18 07:30 Protonix PO AC-BRKFST KRISTINA Sertraline HCl 25 mg 05/20/18 09:00 Zoloft PO DAILY KRISTINA Intake and Output 05/19/18 05/20/18 05/20/18 22:59 06:59 14:59 Intake Total 240 Balance 240 Intake: Oral 240 Other: # Voids 2 2 Weight 87.8 kg 05/19/18 12:31 05/19/18 12:31
--- NOTE | 2018-05-20 11:53 | ECHOF ---
Referral Reason:cp MEASUREMENTS -------- HEIGHT: 160.0 cm WEIGHT: 87.5 kg BP: RVIDd: 1.8 cm (< 3.3) IVSd: 1.0 cm (0.6 - 1.1) LVIDd: 4.3 cm (3.9 - 5.3) LVPWd: 1.0 cm (0.6 - 1.1) IVSs: 1.7 cm LVIDs: 2.6 cm LVPWs: 1.3 cm LAESV Index (A-L): 24.00 ml/m Ao Diam: 2.7 cm (2.0 - 3.7) AV Cusp: 1.9 cm (1.5 - 2.6) LA Diam: 3.1 cm (2.7 - 3.8) MV EXCURSION: 22.777 mm (> 18.000) MV EF SLOPE: 157 mm/s (70 - 150) EPSS: 0.2 cm MV E Juan: 0.90 m/s MV DecT: 196 ms MV A Juan: 0.90 m/s MV E/A Ratio: 1.00 RAP: 5.00 mmHg RVSP: 12.55 mmHg FINDINGS -------- Sinus rhythm with extra systolic beats. This was a technically good study. The left ventricular size is normal. Left ventricular wall thickness is normal. Overall left vent ricular systolic function is normal with, an EF between 55 - 60 %. The right ventricle is normal in size and function. The left atrium is normal in size. The right atrium is normal in size. The aortic valve is trileaflet, and appears structurally normal. No aortic stenosis or regurgitation. The mitral valve leaflets are mildly thickened. Mild mitral annular calcification present. Mild m itral regurgitation is present. Trace tricuspid regurgitation present. The right ventricular systolic pressure, as measured by Dopp ler, is 12.55mmHg. Pulmonic valve appears structurally normal. The aortic root size is normal. Normal inferior vena cava with normal inspiratory collapse consistent with estimated right atrial pre ssure of 5 mmHg. There is a trivial pericardial effusion present. CONCLUSIONS -------- 1. Sinus rhythm with extra systolic beats. 2. This was a technically good study. 3. The left ventricular size is normal. 4. Left ventricular wall thickness is normal. 5. Overall left ventricular systolic function is normal with, an EF between 55 - 60 %. 6. The right ventricle is normal in size and function. 7. The left atrium is normal in size. 8. The right atrium is normal in size. 9. The aortic valve is trileaflet, and appears structurally normal. No aortic stenosis or regurgitati on. 10. The mitral valve leaflets are mildly thickened. 11. Mild mitral annular calcification present. 12. Mild mitral regurgitation is present. 13. Trace tricuspid regurgitation present. 14. The right ventricular systolic pressure, as measured by Doppler, is 12.55mmHg. 15. Pulmonic valve appears structurally normal. 16. The aortic root size is normal. 17. Normal inferior vena cava with normal inspiratory collapse consistent with estimated right atrial pressure of 5 mmHg. 18. There is a trivial pericardial effusion present. SOLO MUSICIAN: Marcelle Egan RDCS
[2018-05-20 11:59] VITALS: BP 146/83; PULSE 82; TEMP 98.1
--- NOTE | 2018-05-21 09:52 | P.DS ---
Providers Date of admission: 05/19/18 14:41 Expected date of discharge: 05/20/18 Attending physician: Jessika Malone Consults: 05/19/18 14:41 Consult Physician Urgent Consulting Provider: [facility] Consult Reason/Comments: Unstable angina Do you want consulting provider notified?: Yes Primary care physician: Lily Davis [facility] Course: This 77-year-old pleasant lady patient of Dr. Davis has underlying history of COPD, hypertension, skin cancer, admitted emergency room secondary to increasing shortness of breath, as well as left arm pain. Patient has had a stress test yesterday, results are negative for stress induced ischemia, patient is currently a smoker, has high blood pressure, no known history off CVA in the past however she has cardiac stents in the past. She also has a dry cough since 3 weeks ago, increasing shortness of breath, white sputumdenies any sick contacts, with no new GI complaints. Emergency room IV heparin is started on most likely with suspicion of unstable angina, EKG showed occasional PAC at sinus rhythm, heart rate 62, daily interval is normal, no acute ST-T wave changes noted. Patient is also admitted for tracheal bronchitis, reactive airway disease chest x-ray shows chronic parenchymal change, cardiomegaly without acute pulmonary process, no pleural effusion, consults were made with cardiology, as well as treatment for COPD at this time. 05/20: Patient has been afebrile, heart rate running in the 60s, blood pressure 155/73, pulse ox 95% on room air. Troponins have been negative on 3 draws. Triglycerides 63, cholesterol 158, LDL 83, HDL 62. Patient has been seen by cardiology and heparin drip has been discontinued. Echocardiogram reveals EF of 55-60% with mild mitral regurgitation. Patient has been cleared for discharge by cardiology with recommendations to follow-up with Dr. Brambila in the office in 2-3 weeks. Patient will be discharged home today in stable condition. Discharge diagnoses: 1. COPD exacerbation, nonsmoker 2. Chest pain, acute coronary syndrome ruled out by cardiology 3. GERD 4. CAD with known cardiac stents in the past 5. Tobacco use, patient's offered tobacco cessation program, nicotine patches 6. 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 Varsha Rodarte nurse practitioner acting as scribe for signing physician. Patient Condition at Discharge: Good Plan - Discharge Summary Discharge Rx Participant: No New Discharge Prescriptions: New Melatonin 10 mg PO HS tablet predniSONE 0 mg PO DIRECTED #30 tab Continue amLODIPine [Norvasc] 2.5 mg PO HS Omeprazole [PriLOSEC] 20 mg PO AC-BRKFST Atenolol [Tenormin] 50 mg PO QAM Aspirin EC [Ecotrin Low Dose] 81 mg PO DAILY Suvorexant [Belsomra] 20 mg PO HS Sertraline [Zoloft] 25 mg PO DAILY Levothyroxine Sodium [Synthroid] 25 mcg PO DAILY Discharge Medication List Aspirin EC [Ecotrin Low Dose] 81 mg PO DAILY 02/18/14 [History] Atenolol [Tenormin] 50 mg PO QAM 02/18/14 [History] Omeprazole [PriLOSEC] 20 mg PO AC-BRKFST 02/18/14 [History] amLODIPine [Norvasc] 2.5 mg PO HS 02/18/14 [History] Levothyroxine Sodium [Synthroid] 25 mcg PO DAILY 05/19/18 [History] Sertraline [Zoloft] 25 mg PO DAILY 05/19/18 [History] Suvorexant [Belsomra] 20 mg PO HS 05/19/18 [History] Melatonin 10 mg PO HS tablet 05/20/18 [Rx] predniSONE 0 mg PO DIRECTED #30 tab 05/20/18 [Rx] Follow up Appointment(s)/Referral(s): Lacey Brambila MD [STAFF PHYSICIAN] - 06/03/18 9:00 am (follow up with Dr. SHUBHAM Brambila in 2 weeks discussed with pt.) Lily Davis MD [Primary Care Provider] - 1 Week (pt to follow up with primary care provider in one week.) Patient Instructions/Handouts: Chest Pain (DC) Discharge Disposition: HOME SELF-CARE
== END 2018-05-20 13:35 | disposition home or self-care (01) ==
LOC: EC 11:37 → 1SOBS 14:41
PROVIDERS: ADMIT Family Medicine; ATTEND Family Medicine
DX: J44.1 Chronic obstructive pulmonary disease with (acute) exacerbation (principal); I11.9 Hypertensive heart disease without heart failure; R07.9 Chest pain, unspecified; M79.602 Pain in left arm; R61 Generalized hyperhidrosis; I25.10 Atherosclerotic heart disease of native coronary artery without angina pectoris; K21.9 Gastro-esophageal reflux disease without esophagitis; F17.200 Nicotine dependence, unspecified, uncomplicated; F51.04 Psychophysiologic insomnia; K64.9 Unspecified hemorrhoids; F34.1 Dysthymic disorder; Z79.82 Long term (current) use of aspirin; Z79.890 Hormone replacement therapy; Z79.899 Other long term (current) drug therapy; Z88.0 Allergy status to penicillin; Z85.828 Personal history of other malignant neoplasm of skin; Z95.5 Presence of coronary angioplasty implant and graft; Z81.8 Family history of other mental and behavioral disorders; Z82.49 Family history of ischemic heart disease and other diseases of the circulatory system
CPT/HCPCS: 96366 ×2; 96375 ×2; 96376 ×2; 96361; 96365; 99291; 36415; 94640 ×4; 94760; 93005; 93306; 83880; 80061; 80053; 82550 ×2; 82553 ×2; 83735; 84484 ×2; 85025; 85610; 85730 ×2; 71046; G0378 ×2; J1644 ×2; J2920 ×2; J2270

== ENCOUNTER → 2019-02-17 | Outpatient (CLI) | payer MEDICARE ==
--- NOTE | 2019-02-17 10:13 | US ---
EXAMINATION TYPE: US carotid duplex BILAT DATE OF EXAM: 02/17/2019 COMPARISON: NONE CLINICAL HISTORY: Occlusion I65.23. Patient states no symptoms. EXAM MEASUREMENTS: RIGHT: Peak Systolic Velocity (PSV) cm/sec ----- Right CCA: 87.8 ----- Right ICA: 114.2 ----- Right ECA: 89.9 ICA/CCA ratio: 1.3 RIGHT: End Diastole cm/sec ----- Right CCA: 11.9 ----- Right ICA: 25.0 ----- Right ECA: 8.8 LEFT: Peak Systolic Velocity (PSV) cm/sec ----- Left CCA: 67.6 ----- Left ICA: 147.8 ----- Left ECA: 112.5 ICA/CCA ratio: 2.2 LEFT: End Diastole cm/sec ----- Left CCA: 14.5 ----- Left ICA: 33.5 ----- Left ECA: 6.7 VERTEBRALS (direction of flow): Right Vertebral: Antegrade Left Vertebral: Antegrade Rhythm: Arrhythmia Bilateral intimal thickening, elevated velocities: left mid and distal ICA, left ICA/CCA ratio of 2.2 IMPRESSION: 1. Bilateral mild plaquing present. 2. Moderate stenosis between 50 and 69% left internal carotid artery based on velocities. Criteria for Assigning % of Stenosis / Diameter reduction (Estimation based on the indirect measurements of the internal carotid artery velocities (ICA PSV). 1. Normal (no stenosis)=ICA PSV < 125 cm/s: ratio < 2.0: ICA EDV<40 cm/s. 2. Less than 50% stenosis=ICA PSV < 125 cm/s: ratio < 2.0: ICA EDV<40 cm/s. 3. 50 to 69% stenosis=ICA PSV of 125 to 230 cm/s: ration 2.0 ? 4.0: ICA EDV 40-100 cm/s. 4. Greater than 70% stenosis to near occlusion= ICA PSV > 230 cm/s: ratio > 4.0: ICA EDV > 100 cm/s. 5. Near occlusion= ICA PSV velocities may be low or undetectable: variable ratio and ICA EDV. 6. Total occlusion=unable to detect flow.
--- NOTE | 2019-02-17 10:33 | US ---
EXAMINATION TYPE: US duplex aorta DATE OF EXAM: 02/17/2019 COMPARISON: NONE CLINICAL HISTORY: AAA I77.811. Patient states no symptoms EXAM MEASUREMENTS: Abdominal Aorta: Proximal: 2.0 x 1.9cm Mid: 1.6 x 1.9cm Distal: 2.3 x 2.5cm Right Iliac: 0.7 x 0.6cm Left Iliac: 1.0 x 0.7cm Distal aorta area of bulging measuring borderline ectatic at 2.3 x 2.5cm IMPRESSION: 1. Distal aortic bulging with the greatest AP diameter measuring 2.3 cm.
== END | disposition home or self-care (01) ==
LOC: RADUSWWP 08:36
PROVIDERS: ATTEND Internal Medicine
DX: I65.23 Occlusion and stenosis of bilateral carotid arteries (principal); I77.811 Abdominal aortic ectasia
CPT/HCPCS: 93880; 93979

== ENCOUNTER → 2019-03-12 | Outpatient (CLI) | payer MEDICARE ==
--- NOTE | 2019-03-12 14:31 | BD ---
EXAMINATION TYPE: Axial Bone Density DATE OF EXAM: 03/12/2019 COMPARISON: NONE CLINICAL HISTORY: M 84.9 Height: 5 FT 2IN Weight: 188 FRAX RISK QUESTIONS: Secondary Osteoporosis: Current Tobacco Use: YES RISK FACTORS HISTORY OF: Active: YES Postmenopausal woman: EARLY 50'S MEDICATIONS: Thyroid Medications: YES Which medication: LEVOTHYROXINE How Lon-3 YEARS Additional Medications: SYMBICORT, OMEPRAZOLE, ATTENOLOL, SERTRALINE, LEVOTHYROXINE, AMLODIPINE, BELS OMRA, Additional History: EXAM MEASUREMENTS: Bone mineral densitometry was performed using the [employer]. Bone mineral density as measured about the Lumbar spine is: ----- L1-L4(G/cm2): 1.180 T Score Values are as follows: ----- L2: 0.2 ----- L3: 0.2 ----- L4: 0.0 ----- L1-L4: 0.0 BASELINE Bone mineral density about the R hip (g/cm2): 0.881 Bone mineral density about the L hip (g/cm2): 0.923 T Score values are as follows: -----R Neck: -1.1 -----L Neck: -0.8 -----R Total: -0.6 -----L Total: 0.0 BASELINE IMPRESSION: Osteopenia (T Score between -2.5 and -1). There is slightly increased risk of fracture and the patient may be considered for treatment. Re-Screen 2-5 years. NOTE: T-SCORE=SD OF THE YOUNG ADULT MEAN.
--- NOTE | 2019-03-15 11:54 | MM ---
Reason for exam: screening (asymptomatic). Last mammogram was performed 6 years ago. History: Patient is postmenopausal and history of other cancer. Excisional biopsy of the left breast. Took estrogen for 15 years. Took progesterone for 15 years. Physical Findings: A clinical breast exam by your physician is recommended on an annual basis and results should be correlated with mammographic findings. MG 3D Screening Mammo W/Cad Bilateral CC and MLO view(s) were taken. Prior study comparison: March 02, 2013, bilateral digital screening mammo w/CAD. February 20, 2012, bilateral digital screening mammo w/CAD. There are scattered fibroglandular densities. There is no discrete abnormality. No significant changes when compared with prior studies. ASSESSMENT: Negative, BI-RAD 1 RECOMMENDATION: Routine screening mammogram of both breasts in 1 year.
== END | disposition home or self-care (01) ==
LOC: RADMAMWWP 12:09
PROVIDERS: ATTEND Internal Medicine
DX: Z12.31 Encounter for screening mammogram for malignant neoplasm of breast (principal); M85.9 Disorder of bone density and structure, unspecified; M85.80 Other specified disorders of bone density and structure, unspecified site
CPT/HCPCS: 77063; 77067; 77080

== ENCOUNTER 2019-11-16 06:05 | Inpatient (IN) | payer MEDICARE ==
[2019-11-16] MEDS ORDERED: SODIUM CHLORIDE 0.9% 1,000 ML IV SCH (06:15)
[2019-11-16] MEDS ORDERED: HEPARIN SODIUM,PORCINE 5,000 UNIT/ML 1 ML VIAL IV PRN (06:28)
[2019-11-16] MEDS ORDERED: DILTIAZEM DRIP BOLUS FROM BAG 1 MG SOLN IV STA (06:28)
[2019-11-16 06:37] LABS: Basophils # (A) 0.1 k/uL (0-0.2); Basophils % (A) 1 %; Eosinophils # (A) 0.2 k/uL (0-0.7); Eosinophils % (A) 2 %; HCT 38.5 % (34.0-46.0); HGB 12.2 gm/dL (11.4-16.0); Hypochromasia Slight; Lymphocytes # (A) 2.2 k/uL (1.0-4.8); Lymphocytes % (A) 20 %; MCH 27.9 pg (25.0-35.0); MCHC 31.6 g/dL (31.0-37.0); MCV 88.2 fL (80.0-100.0); Monocytes # (A) 0.5 k/uL (0-1.0); Monocytes % (A) 5 %; Neutrophils # (A) 7.7 k/uL (1.3-7.7); Neutrophils % (A) 71 %; Platelet Count 270 k/uL (150-450); RBC 4.36 m/uL (3.80-5.40); RDW 14.4 % (11.5-15.5); WBC 10.9 k/uL (3.8-10.6)
[2019-11-16] MEDS: SODIUM CHLORIDE 0.9% 500 ML 500 ML IV SCH (06:38)
--- NOTE | 2019-11-16 06:38 | ED ---
General Adult HPI - General Source: patient, EMS, RN notes reviewed Mode of arrival: EMS Limitations: no limitations <Jimy Wilson - Last Filed: 11/16/19 08:34> <Francisco Manriquez - Last Filed: 11/17/19 17:26> - General Chief complaint: Shortness of Breath Stated complaint: SOB - History of Present Illness Initial comments: 78-year-old female with a past medical history of COPD, GERD, hypertension, remote stent presents to the emergency department for a chief complaint of weakness. Patient states she has felt weak for about 1 week. States she has had some mild shortness of breath with this as well. Patient denies chest pain. Patient reports that walking makes this shortness of breath worse. Patient does have a history of COPD, does not use cpap at home. Patient has no other complaints at this time including chest pain, abdominal pain, nausea or vomiting, headache, or visual changes. (Jimy Wilson) - Related Data Home Medications Medication Instructions Recorded Confirmed Aspirin EC [Ecotrin Low Dose] 81 mg PO DAILY 02/18/14 11/16/19 Atenolol [Tenormin] 50 mg PO QAM 02/18/14 11/16/19 Omeprazole [PriLOSEC] 20 mg PO AC-BRKFST 02/18/14 11/16/19 amLODIPine [Norvasc] 2.5 mg PO HS 02/18/14 11/16/19 Suvorexant [Belsomra] 20 mg PO HS PRN 05/19/18 11/16/19 Ascorbic Acid [Vitamin C] 500 mg PO DAILY 11/16/19 11/16/19 Atenolol [Tenormin] 50 mg PO DAILY 11/16/19 11/16/19 Budesonide-Formot 160-4.5 Mcg 2 puff INHALATION RT-BID 11/16/19 11/16/19 [Symbicort 160-4.5 Mcg Inhaler] Cholecalciferol [Vitamin D3 (25 1,000 unit PO DAILY 11/16/19 11/16/19 Mcg = 1000 Iu)] Levothyroxine Sodium [Synthroid] 50 mcg PO DAILY 11/16/19 11/16/19 Allergies Allergy/AdvReac Type Severity Reaction Status Date / Time Penicillins Allergy Rash/Hives Verified 11/16/19 07:57 Review of Systems ROS Other: All systems not noted in ROS Statement are negative. <Jimy Wilson P - Last Filed: 11/16/19 08:34> ROS Other: All systems not noted in ROS Statement are negative. <Francisco Manriquez N - Last Filed: 11/17/19 17:26> ROS Statement: Those systems with pertinent positive or pertinent negative responses have been documented in the HPI. Past Medical History Past Medical History: COPD, GERD/Reflux, Hypertension Additional Past Medical History / Comment(s): HX SKIN CA, FREQ LOOSE STOOLS, CURRENTLY HAVING CONSTIPATION, STATED "HAD ONE TIME EPISODE OF LARGE AMOUT OF BLOOD RECENTLY W. STOOL.".HX HEMORRHOIDS History of Any Multi-Drug Resistant Organisms: None Reported Past Surgical History: Heart Catheterization With Stent Additional Past Surgical History / Comment(s): Cholonoscopy (02/21/2014) Past Anesthesia/Blood Transfusion Reactions: No Reported Reaction Additional Past Anesthesia/Blood Transfusion Reaction / Comment(s): NEVER HAS HAD GENERAL ANESTHESIA or blood trans Date of Last Stent Placement:: -2005 Past Psychological History: No Psychological Hx Reported Smoking Status: Current every day smoker Past Alcohol Use History: Occasional Past Drug Use History: None Reported - Past Family History Mother Additional Family Medical History / Comment(s): depression Father Family Medical History: Congestive Heart Failure (CHF) Additional Family Medical History / Comment(s): heart disease <Jimy Wilson P - Last Filed: 11/16/19 08:34> - Past Family History Mother Family Medical History: No Reported History (Mother at the age of 57 from suicide after severe depression) Additional Family Medical History / Comment(s): depression Father Family Medical History: Congestive Heart Failure (CHF) (Father at the age of 84 from CAD and CHF.) Additional Family Medical History / Comment(s): heart disease Brother(s) Family Medical History: COPD (patient has 2 brothers one with COPD.) Sister(s) Family Medical History: No Reported History (Patient has one sister with Barretts esophagus.) Son(s) Family Medical History: No Reported History (Patient has 3 sons no major medical problems.) Daughter(s) Family Medical History: Neurologic Disorder (One daughter with MS, LUPUS and Crohn disease.) <Francisco Manriquez N - Last Filed: 11/17/19 17:26> General Exam Limitations: no limitations General appearance: alert, in no apparent distress Head exam: Present: atraumatic, normocephalic, normal inspection Eye exam: Present: normal appearance, PERRL, EOMI. Absent: scleral icterus, conjunctival injection, periorbital swelling ENT exam: Present: normal exam, mucous membranes moist Neck exam: Present: normal inspection, full ROM. Absent: tenderness, meningismus, lymphadenopathy Respiratory exam: Present: normal lung sounds bilaterally. Absent: respiratory distress, wheezes, rales, rhonchi, stridor Cardiovascular Exam: Present: regular rate, normal rhythm, normal heart sounds. Absent: systolic murmur, diastolic murmur, rubs, gallop, clicks GI/Abdominal exam: Present: soft, normal bowel sounds. Absent: distended, tenderness, guarding, rebound, rigid Neurological exam: Present: alert <Jimy Wilson P - Last Filed: 11/16/19 08:34> Course <Jimy Wilson P - Last Filed: 11/16/19 08:34> Vital Signs 11/16/19 11/16/19 11/16/19 06:07 06:19 06:27 Temperature 98.6 F Pulse Rate 128 H 118 H Respiratory 28 H 28 H 28 H Rate Blood Pressure 151/129 144/102 O2 Sat by Pulse 100 100 Oximetry 11/16/19 11/16/19 11/16/19 06:55 07:09 07:30 Temperature Pulse Rate 93 89 92 Respiratory 25 H 25 H 16 Rate Blood Pressure 153/80 152/98 152/98 O2 Sat by Pulse 98 99 97 Oximetry 11/16/19 11/16/19 11/16/19 08:00 08:30 09:00 Temperature Pulse Rate 105 H 102 H 98 Respiratory 18 16 13 Rate Blood Pressure 163/84 121/77 142/85 O2 Sat by Pulse 98 97 95 Oximetry - Reevaluation(s) Reevaluation #1: 11/16/19 06:[address] Card immediately upon arrival. (Jimy Wilson) EKG Findings - EKG Comments: EKG Findings:: a flutter, bigeminy, vent rate 20, QRS duration 76, QTc 469 <Jimy Wilson - Last Filed: 11/16/19 08:34> Medical Decision Making - Lab Data Result diagrams: 11/16/19 06:27 11/16/19 06:27 <iJmy Wilson - Last Filed: 11/16/19 08:34> - Lab Data Result diagrams: 11/17/19 06:19 11/17/19 06:19 <Francisco Manriquez - Last Filed: 11/17/19 17:26> - Medical Decision Making Patient presents to the emergency department relatively short of breath after receiving albuterol treatment. Respiratory rate is increased and patient does h ave wheezing noted. Patient was started on BiPAP which did help to lower her respiratory rate and given solu-medrol. CBC CMP unremarkable. Chest x-ray shows prominence and central vascularity. Correlate for congestive heart failure. BNP 3000, given lasix. Patient also found to be in atrial fibrillation with heart rate up to 140s and runs of bigeminy. She was started on Cardizem and heparin as she does not have blood thinners on board. Patient's causes shortness of breath likely multifactorial and she will be treated as such. Patient will be admitted with cardiology consultation. (Jimy Wilson) 78-year-old female evaluated by previous physician and found to be in A. fib with RVR, presenting with chief complaint of dyspnea. She has a history of COPD. Workup in the emergency department reveals multifactorial dyspnea including CHF, COPD with new onset atrial fibrillation. She has been admitted to internal medicine with cardiology on consult. (Francisco Manriquze) - Lab Data Lab Results 11/16/19 11/16/19 11/16/19 Range/Units 06:27 06:27 06:27 WBC 10.9 H (3.8-10.6) k/uL RBC 4.36 (3.80-5.40) m/uL Hgb 12.2 (11.4-16.0) gm/dL Hct 38.5 (34.0-46.0) % MCV 88.2 (80.0-100.0) fL MCH 27.9 (25.0-35.0) pg MCHC 31.6 (31.0-37.0) g/dL RDW 14.4 (11.5-15.5) % Plt Count 270 (150-450) k/uL Neutrophils % 71 % Lymphocytes % 20 % Monocytes % 5 % Eosinophils % 2 % Basophils % 1 % Neutrophils # 7.7 (1.3-7.7) k/uL Lymphocytes # 2.2 (1.0-4.8) k/uL Monocytes # 0.5 (0-1.0) k/uL Eosinophils # 0.2 (0-0.7) k/uL Basophils # 0.1 (0-0.2) k/uL Hypochromasia Slight PT 10.0 (9.0-12.0) sec INR 1.0 (<1.2) APTT 19.4 L (22.0-30.0) sec Sodium 133 L (137-145) mmol/L Potassium 4.2 (3.5-5.1) mmol/L Chloride 103 (98-107) mmol/L Carbon Dioxide 24 (22-30) mmol/L Anion Gap 6 mmol/L BUN 14 (7-17) mg/dL Creatinine 1.02 (0.52-1.04) mg/dL Est GFR (CKD-EPI)AfAm 61 (>60 ml/min/1.73 sqM) Est GFR (CKD-EPI)NonAf 53 (>60 ml/min/1.73 sqM) Glucose 129 H (74-99) mg/dL Plasma Lactic Acid Marlon (0.7-2.0) mmol/L Calcium 8.8 (8.4-10.2) mg/dL Total Bilirubin 0.5 (0.2-1.3) mg/dL AST 28 (14-36) U/L ALT 29 (4-34) U/L Alkaline Phosphatase 95 (38-126) U/L Troponin I (0.000-0.034) ng/mL NT-Pro-B Natriuret Pep pg/mL Total Protein 6.2 L (6.3-8.2) g/dL Albumin 3.9 (3.5-5.0) g/dL Coronavirus (PCR) (Not Detected) 11/16/19 11/16/19 11/16/19 Range/Units 06:27 06:27 06:27 WBC (3.8-10.6) k/uL RBC (3.80-5.40) m/uL Hgb (11.4-16.0) gm/dL Hct (34.0-46.0) % MCV (80.0-100.0) fL MCH (25.0-35.0) pg MCHC (31.0-37.0) g/dL RDW (11.5-15.5) % Plt Count (150-450) k/uL Neutrophils % % Lymphocytes % % Monocytes % % Eosinophils % % Basophils % % Neutrophils # (1.3-7.7) k/uL Lymphocytes # (1.0-4.8) k/uL Monocytes # (0-1.0) k/uL Eosinophils # (0-0.7) k/uL Basophils # (0-0.2) k/uL Hypochromasia PT (9.0-12.0) sec INR (<1.2) APTT (22.0-30.0) sec Sodium (137-145) mmol/L Potassium (3.5-5.1) mmol/L Chloride (98-107) mmol/L Carbon Dioxide (22-30) mmol/L Anion Gap mmol/L BUN (7-17) mg/dL Creatinine (0.52-1.04) mg/dL Est GFR (CKD-EPI)AfAm (>60 ml/min/1.73 sqM) Est GFR (CKD-EPI)NonAf (>60 ml/min/1.73 sqM) Glucose (74-99) mg/dL Plasma Lactic Acid Marlon 1.2 (0.7-2.0) mmol/L Calcium (8.4-10.2) mg/dL Total Bilirubin (0.2-1.3) mg/dL AST (14-36) U/L ALT (4-34) U/L Alkaline Phosphatase (38-126) U/L Troponin I (0.000-0.034) ng/mL NT-Pro-B Natriuret Pep 3010 pg/mL Total Protein (6.3-8.2) g/dL Albumin (3.5-5.0) g/dL Coronavirus (PCR) Not Detected (Not Detected) 11/16/19 Range/Units 06:36 WBC (3.8-10.6) k/uL RBC (3.80-5.40) m/uL Hgb (11.4-16.0) gm/dL Hct (34.0-46.0) % MCV (80.0-100.0) fL MCH (25.0-35.0) pg MCHC (31.0-37.0) g/dL RDW (11.5-15.5) % Plt Count (150-450) k/uL Neutrophils % % Lymphocytes % % Monocytes % % Eosinophils % % Basophils % % Neutrophils # (1.3-7.7) k/uL Lymphocytes # (1.0-4.8) k/uL Monocytes # (0-1.0) k/uL Eosinophils # (0-0.7) k/uL Basophils # (0-0.2) k/uL Hypochromasia PT (9.0-12.0) sec INR (<1.2) APTT (22.0-30.0) sec Sodium (137-145) mmol/L Potassium (3.5-5.1) mmol/L Chloride (98-107) mmol/L Carbon Dioxide (22-30) mmol/L Anion Gap mmol/L BUN (7-17) mg/dL Creatinine (0.52-1.04) mg/dL Est GFR (CKD-EPI)AfAm (>60 ml/min/1.73 sqM) Est GFR (CKD-EPI)NonAf (>60 ml/min/1.73 sqM) Glucose (74-99) mg/dL Plasma Lactic Acid Marlon (0.7-2.0) mmol/L Calcium (8.4-10.2) mg/dL Total Bilirubin (0.2-1.3) mg/dL AST (14-36) U/L ALT (4-34) U/L Alkaline Phosphatase (38-126) U/L Troponin I <0.012 (0.000-0.034) ng/mL NT-Pro-B Natriuret Pep pg/mL Total Protein (6.3-8.2) g/dL Albumin (3.5-5.0) g/dL Coronavirus (PCR) (Not Detected) Disposition Is patient prescribed a controlled substance at d/c from ED?: No Time of Disposition: 08:30 <Jmiy Wilson P - Last Filed: 11/16/19 08:34> <Francisco Manriquez - Last Filed: 11/17/19 17:26> Clinical Impression: Shortness of breath, COPD exacerbation, CHF (congestive heart failure), New onset a-fib, Bigeminy Disposition: ADMITTED IP TO THIS HOSP
[2019-11-16] MEDS: DILTIAZEM 125 MG in SODIUM CHLORIDE 0.9% 100 ML IV SCH (06:42)
[2019-11-16 06:47] LABS: Albumin 3.9 g/dL (3.5-5.0); Calcium 8.8 mg/dL (8.4-10.2); Potassium 4.2 mmol/L (3.5-5.1); Total Bilirubin 0.5 mg/dL (0.2-1.3); Total Protein 6.2 g/dL (6.3-8.2)
[2019-11-16] MEDS: HEPARIN SODIUM,PORCINE 5,000 UNIT/ML 1 ML VIAL IV ONE ×2 (06:48→07:07)
[2019-11-16] MEDS: HEPARIN SOD,PORK IN 0.45% NACL 25,000 UNIT in 0.45% NACL 1 250ML.BAG IV SCH ×2 (06:49→07:06)
[2019-11-16 07:01] LABS: Partial Thromboplastin Time 19.4 sec (22.0-30.0)
[2019-11-16] MEDS ORDERED: methylPREDNISolone SOD SUCCI 125 MG/2 ML VIAL IV STA (07:11)
[2019-11-16] MEDS ORDERED: LORazepam 2 MG/ML INJ IV STA (07:29)
--- NOTE | 2019-11-16 08:20 | XR ---
EXAMINATION TYPE: XR chest 1V portable DATE OF EXAM: 11/16/2019 COMPARISON: Prior chest x-ray 05/19/2018 HISTORY: Respiratory distress TECHNIQUE: Single frontal view of the chest is obtained. FINDINGS: There is prominence and central vascularity and interstitium. Heart is enlarged. Aorta is dense. No pneumothorax or pleural effusion. Bibasilar increased density noted. IMPRESSION: Correlate for congestive heart failure.
[2019-11-16] MEDS ORDERED: FUROSEMIDE 10 MG/ML 4 ML VIAL IV STA (08:24)
[2019-11-16] MEDS ORDERED: NALOXONE 0.4 MG/ML 1 ML VIAL IV PRN (08:31)
[2019-11-16] MEDS ORDERED: IPRATROPIUM-ALBUTEROL 3 ML NEB INHALATION PRN (08:34)
[2019-11-16] MEDS ORDERED: SUVOREXANT 20 MG PO PRN (12:13)
[2019-11-16] MEDS: IPRATROPIUM-ALBUTEROL 3 ML NEB INHALATION SCH ×3 (12:41→21:49)
[2019-11-16] MEDS: PANTOPRAZOLE 40 MG TABLET PO SCH (13:32)
--- NOTE | 2019-11-16 15:39 | P.CNPUL ---
History of Present Illness Consult date: 11/16/19 Requesting physician: Jimy Wilson Reason for consult: dyspnea Chief complaint: Shortness of breath, weakness History of present illness: 78-year-old white female patient of , with past medical history of COPD, chronic congestive heart failure, hypertension, coronary artery disease with previous PCI and stenting, GERD, who presented to the emergency department on 11/16/2019 with complaints of shortness of breath, orthopnea, and generalized weakness. Her shortness of breath was also exacerbated by any exertion, including walking. She denied any chest pain, denied any fever or chills. She is a chronic smoker, still smoking a pack a day. Her home maintenance inhalers include Symbicort, and albuterol. Patient is not on oxygen at baseline. Chest x-ray on admission showed prominence and central vascularity and interstitium, no pneumothorax or pleural effusions, increased bibasilar density. Lab work showed a white blood cell count of 10.9 hemoglobin of 12.2, INR is 1.3, serum sodium is 133, the rest of the electrolytes and renal profile were unremarkable, plasma lactic acid was 1.2, LFTs were within normal limits, troponins were less than 0.0123, proBNP was elevated at 3010, TSH was within normal limits at 2.36. EKG was obtained in the emergency department showing A. fib flutter, with frequent PVCs. Her previous echocardiogram from May 2018 showed EF of 55- 60%, left ventricular wall thickness was within normal limits, no aortic stenosis or regurgitation, mild mitral regurgitation, trace tricuspid regurgitation, no evidence of pulmonary hypertension with right-sided pressures of 12.5 mmHg. patient was started on IV diuretics in the emergency department, she was started on IV heparin, and Cardizem infusion which is not currently running, she was placed on BiPAP support initially, she is currently on nasal cannula, at 4 L/m, her pulse ox is 94%, she is diuresing. She is getting up to the commode, her shortness of breath has improved, she has a bibasilar crackles on physical exam, and some limited wheezing. Review of Systems All systems: negative Constitutional: Denies chills, Denies fever Eyes: denies blurred vision, denies pain Ears, nose, mouth and throat: Denies headache, Denies sore throat Cardiovascular: Denies chest pain, Denies shortness of breath Respiratory: Reports dyspnea, Denies cough Gastrointestinal: Denies abdominal pain, Denies diarrhea, Denies nausea, Denies vomiting Genitourinary: Denies dysuria, Denies hematuria Musculoskeletal: Denies myalgias Integumentary: Denies pruritus, Denies rash Neurological: Denies numbness, Denies weakness Psychiatric: Denies anxiety, Denies depression Endocrine: Denies fatigue, Denies weight change Past Medical History Past Medical History: Coronary Artery Disease (CAD), Cancer, Chest Pain / Angina, COPD, GERD/Reflux, GI Bleed, Hypertension, Osteoarthritis (OA), Pneumonia, Syncope Additional Past Medical History / Comment(s): Skin cancer with removal, lower GI bleed thought to be hemorrhoids, diverticular disease, pt states she goes from loose stools to constipation, UTI, hypothyroid, insomnia, chronic low back pain, History of Any Multi-Drug Resistant Organisms: None Reported Past Surgical History: Heart Catheterization With Stent, Tonsillectomy, Uterine Ablation Additional Past Surgical History / Comment(s): Cholonoscopy, bilateral cataract removals/lens implants, skin cancer removal. Past Anesthesia/Blood Transfusion Reactions: No Reported Reaction Additional Past Anesthesia/Blood Transfusion Reaction / Comment(s): NEVER HAS HAD GENERAL ANESTHESIA or blood trans Date of Last Stent Placement:: Smoking Status: Current every day smoker - Past Family History Mother Additional Family Medical History / Comment(s): depression Father Family Medical History: Congestive Heart Failure (CHF) Additional Family Medical History / Comment(s): heart disease Medications and Allergies Home Medications Medication Instructions Recorded Confirmed Type Aspirin EC [Ecotrin Low Dose] 81 mg PO DAILY 02/18/14 11/16/19 History Atenolol [Tenormin] 50 mg PO QAM 02/18/14 11/16/19 History Omeprazole [PriLOSEC] 20 mg PO AC-BRKFST 02/18/14 11/16/19 History amLODIPine [Norvasc] 2.5 mg PO HS 02/18/14 11/16/19 History Suvorexant [Belsomra] 20 mg PO HS PRN 05/19/18 11/16/19 History Ascorbic Acid [Vitamin C] 500 mg PO DAILY 11/16/19 11/16/19 History Atenolol [Tenormin] 50 mg PO DAILY 11/16/19 11/16/19 History Budesonide-Formot 160-4.5 Mcg 2 puff INHALATION RT-BID 11/16/19 11/16/19 History [Symbicort 160-4.5 Mcg Inhaler] Cholecalciferol [Vitamin D3 (25 1,000 unit PO DAILY 11/16/19 11/16/19 History Mcg = 1000 Iu)] Levothyroxine Sodium [Synthroid] 50 mcg PO DAILY 11/16/19 11/16/19 History Allergies Allergy/AdvReac Type Severity Reaction Status Date / Time Penicillins Allergy Rash/Hives Verified 11/16/19 07:57 Physical Exam Vitals: Vital Signs Temp Pulse Pulse Resp BP BP Pulse Ox 11/16/19 12:00 97.8 F 100 24 134/90 94 L 11/16/19 09:00 98 13 142/85 95 11/16/19 08:30 102 H 16 121/77 97 11/16/19 08:00 105 H 18 163/84 98 11/16/19 07:30 92 16 152/98 97 11/16/19 07:09 89 25 H 152/98 99 11/16/19 06:55 93 25 H 153/80 98 11/16/19 06:27 118 H 28 H 144/102 100 11/16/19 06:19 28 H 11/16/19 06:07 98.6 F 128 H 28 H 151/129 100 Intake and Output 11/16/19 11/16/19 11/16/19 06:59 14:59 22:59 Other: Voiding Method Bedside Commode # Voids 1 Weight 86.183 kg 86.183 kg GENERAL EXAM: Alert, very pleasant, 78-year-old white female, on 4 L of oxygen and the pulse ox of 94-95%, comfortable in no apparent distress. HEAD: Normocephalic/atraumatic. EYES: Normal reaction of pupils, equal size. Conjunctiva pink, sclera white. NOSE: Clear with pink turbinates. THROAT: No erythema or exudates. NECK: No masses, no JVD, no thyroid enlargement, no adenopathy. CHEST: No chest wall deformity. Symmetrical expansion. LUNGS: Equal air entry with bibasilar crackles, and limited expiratory wheezing CVS: Irregular rate and rhythm, normal S1 and S2, no gallops, no murmurs, no r ubs ABDOMEN: Soft, nontender. No hepatosplenomegaly, normal bowel sounds, no guarding or rigidity. EXTREMITIES: No clubbing, no edema, no cyanosis, 2+ pulses and upper and lower extremities. MUSCULOSKELETAL: Muscle strength and tone normal. SPINE: No scoliosis or deformity SKIN: No rashes CENTRAL NERVOUS SYSTEM: Alert and oriented -3. No focal deficits, tone is normal in all 4 extremities. PSYCHIATRIC: Alert and oriented -3. Appropriate affect. Intact judgment and insight. Results - Laboratory Findings CBC and BMP: 11/16/19 06:27 11/16/19 06:27 PT/INR, D-dimer PT 10.0 sec (9.0-12.0) 11/16/19 06:27 INR 1.0 (<1.2) 11/16/19 06:27 Abnormal lab findings: Abnormal Labs 11/16/19 11/16/19 11/16/19 06:27 06:27 06:27 WBC 10.9 H APTT 19.4 L Sodium 133 L Glucose 129 H Total Protein 6.2 L 11/16/19 13:03 WBC APTT 56.4 H Sodium Glucose Total Protein - Diagnostic Findings Chest x-ray: report reviewed, image reviewed Additional studies: EKG reviewed Assessment and Plan Plan: Assessment: #1. Acute exacerbation of chronic congestive heart failure, with previously documented diastolic dysfunction #2. Mild exacerbation of chronic obstructive pulmonary disease, not oxygen depe ndent at baseline #3. Acute hypoxic respiratory failure related to acute exacerbation of diastolic CHF and COPD, did require brief BiPAP support, remains on supplemental oxygen #4. Hypertension #5. Coronary artery disease with previous history of stenting #6. GERD/reflux #7. Chronic and ongoing history of smoking, still smoking a pack a day #8. Hypothyroidism, on thyroid replacement therapy Plan: Continue IV diuretics, continue Symbicort, DuoNeb, we will add IV steroids. Currently off BiPAP support, still requiring some supplemental oxygen, wean FiO2, repeat chest x-ray in the morning, adequate intake and output, electrolytes and renal profile in the morning. Continue to follow I performed a history & physical examination of the patient and discussed their management with my nurse practitioner, Jazmine York. I reviewed the nurse practitioner's note and agree with the documented findings and plan of care. Lung sounds are positive for scattered wheezes, bibasilar crackles. The findings and the impression was discussed with the patient. I attest to the documentation by the nurse practitioner. Time with Patient: Greater than 30
[2019-11-16 15:53] LABS: Appearance,Urine Clear (Clear); Bacteria,Urine Occasional /hpf; Bilirubin,Urine Negative (Negative); Blood,Urine Negative (Negative); Color,Urine Colorless; Glucose,Urine (UA) Negative (Negative); Hyaline Casts,Urine 1 /lpf (0-2); Ketones,Urine Negative (Negative); Leukocyte Esterase,Urine Trace (Negative); Mucus,Urine Rare /hpf; Nitrite,Urine Negative (Negative); Protein,Urine Negative (Negative); RBC,Urine 1 /hpf (0-5); Specific Gravity,Urine 1.005 (1.001-1.035); Squamous Epithelial Cell,Urine 1 /hpf (0-4); Urobilinogen,Urine <2.0 mg/dL (<2.0); WBC,Urine <1 /hpf (0-5)
[2019-11-16] MEDS: methylPREDNISolone SOD SUCCI 40 MG/ML 1 ML VIAL IV SCH (17:00)
[2019-11-16] MEDS ORDERED: SYMBICORT 160-4.5 MCG INHALER INHALATION SCH (20:00)
[2019-11-16] MEDS: FUROSEMIDE 10 MG/ML 4 ML VIAL IV SCH (21:37)
[2019-11-16] MEDS: amLODIPine 2.5 MG TAB PO SCH (21:37)
[2019-11-16] MEDS ORDERED: TEMAZEPAM 15 MG CAP PO PRN (23:38)
[2019-11-17] MEDS: methylPREDNISolone SOD SUCCI 40 MG/ML 1 ML VIAL IV SCH ×4 (00:08→23:18)
[2019-11-17] MEDS: IPRATROPIUM-ALBUTEROL 3 ML NEB INHALATION SCH ×4 (04:33→20:15)
--- NOTE | 2019-11-17 06:35 | P.HPIM ---
History of Present Illness H&P Date: 11/16/19 Chief Complaint: Dyspnea due to Afib with diastolic heart failure This is a 78 year old female with a previous medical history significant for hypertension and hypertensive cardiovascular disease, hyperlipidemia, chronic tobacco use and dependence with COPD, GERD and insomnia, patient developed to have increased shortness of breath about a week ago with significant orthopnea and PND, she finally decided to call EMS yesterday and she was brought into the ER at [facility] she was found to have a new onset atrial flutter with variable response and CXR showed CHF along with COPD initially she was placed on BIPAP then she was switches to nasal canula, she was admitted to the hospital after starting her on heparin drip and cardizem drip along with pulmonary and cardiology consult. Review of Systems Constitutional: Reports fatigue, Reports weakness Eyes: denies blurred vision, denies bulging eye, denies decreased vision Ears, nose, mouth and throat: Denies dysphagia, Denies neck lump, Denies sore throat Cardiovascular: Reports chest pain, Reports decreased exercise tolerance, Reports dyspnea on exertion, Reports orthopnea, Reports rapid heart beat, Reports shortness of breath Respiratory: Reports congestion, Reports cough, Reports cough with sputum, Reports dyspnea, Reports wheezing Gastrointestinal: Denies abdominal pain, Denies bloating, Denies BRBPR, Denies heartburn, Denies melena, Denies nausea, Denies vomiting Genitourinary: Reports nocturia, Denies dysuria Menstruation: Reports postmenopausal Musculoskeletal: Denies myalgias Musculoskeletal: absent: ankle pain, ankle stiffness, ankle swelling, elbow pain, elbow stiffness, elbow swelling, foot pain, foot stiffness, foot swelling, hand pain, hand stiffness, hand swelling, hip pain, hip stiffness, hip swelling, knee pain, knee stiffness, knee swelling, shoulder pain, shoulder stiffness, shoulder swelling, wrist pain, wrist stiffness, wrist swelling Integumentary: Denies pruritus, Denies rash Neurological: Denies numbness, Denies weakness Psychiatric: Reports anxiety, Reports depression, Reports sleep disturbances, Denies sadness/tearfulness, Denies suicidal ideation Endocrine: Denies fatigue, Denies weight change Past Medical History Past Medical History: Atrial Flutter, Coronary Artery Disease (CAD), COPD, GERD/Reflux, Hyperlipidemia, Hypertension, Osteoarthritis (OA) Additional Past Medical History / Comment(s): HX SKIN CA, FREQ LOOSE STOOLS, CURRENTLY HAVING CONSTIPATION, STATED "HAD ONE TIME EPISODE OF LARGE AMOUT OF BLOOD RECENTLY W. STOOL.".HX HEMORRHOIDS History of Any Multi-Drug Resistant Organisms: None Reported Past Surgical History: Heart Catheterization With Stent Additional Past Surgical History / Comment(s): Cholonoscopy (02/21/2014) Past Anesthesia/Blood Transfusion Reactions: No Reported Reaction Additional Past Anesthesia/Blood Transfusion Reaction / Comment(s): NEVER HAS HAD GENERAL ANESTHESIA or blood trans Date of Last Stent Placement:: Past Psychological History: No Psychological Hx Reported Smoking Status: Current every day smoker (Patient smokes about 1/2 a pack a a day since she wa a teenager.) Past Alcohol Use History: Occasional Past Drug Use History: None Reported - Past Family History Mother Family Medical History: No Reported History (Mother at the age of 57 from suicide after severe depression) Additional Family Medical History / Comment(s): depression Father Family Medical History: Congestive Heart Failure (CHF) (Father at the age of 84 from CAD and CHF.) Additional Family Medical History / Comment(s): heart disease Brother(s) Family Medical History: COPD (patient has 2 brothers one with COPD.) Sister(s) Family Medical History: No Reported History (Patient has one sister with Barretts esophagus.) Son(s) Family Medical History: No Reported History (Patient has 3 sons no major medical problems.) Daughter(s) Family Medical History: Neurologic Disorder (One daughter with MS, LUPUS and Crohn disease.) Medications and Allergies Home Medications Medication Instructions Recorded Confirmed Type Aspirin EC [Ecotrin Low Dose] 81 mg PO DAILY 02/18/14 11/16/19 History Atenolol [Tenormin] 50 mg PO QAM 02/18/14 11/16/19 History Omeprazole [PriLOSEC] 20 mg PO AC-BRKFST 02/18/14 11/16/19 History amLODIPine [Norvasc] 2.5 mg PO HS 02/18/14 11/16/19 History Suvorexant [Belsomra] 20 mg PO HS PRN 05/19/18 11/16/19 History Ascorbic Acid [Vitamin C] 500 mg PO DAILY 11/16/19 11/16/19 History Atenolol [Tenormin] 50 mg PO DAILY 11/16/19 11/16/19 History Budesonide-Formot 160-4.5 Mcg 2 puff INHALATION RT-BID 11/16/19 11/16/19 History [Symbicort 160-4.5 Mcg Inhaler] Cholecalciferol [Vitamin D3 (25 1,000 unit PO DAILY 11/16/19 11/16/19 History Mcg = 1000 Iu)] Levothyroxine Sodium [Synthroid] 50 mcg PO DAILY 11/16/19 11/16/19 History Allergies Allergy/AdvReac Type Severity Reaction Status Date / Time Penicillins Allergy Rash/Hives Verified 11/16/19 07:57 Physical Exam Vitals: Vital Signs Temp Pulse Resp BP Pulse Ox 11/16/19 09:00 98 13 142/85 95 11/16/19 08:30 102 H 16 121/77 97 11/16/19 08:00 105 H 18 163/84 98 11/16/19 07:30 92 16 152/98 97 11/16/19 07:09 89 25 H 152/98 99 11/16/19 06:55 93 25 H 153/80 98 11/16/19 06:27 118 H 28 H 144/102 100 11/16/19 06:19 28 H 11/16/19 06:07 98.6 F 128 H 28 H 151/129 100 Intake and Output 11/15/19 11/16/19 11/16/19 22:59 06:59 14:59 Other: Weight 86.183 kg Physical examination: HEENT: head is atraumatic normocephalic pupils were equal round reactive to light and accommodations, extra ocular muscle movements were intact. Neck: supple, no JVP. Chest: decrease breath sounds at the bases with few ronchi moderate expiratory wheezes, minimal intercostal retraction. Heart: first heart sound is depressed, second heart sound is normal irregularly irregular, there is BEN 2/6 located at the left sternal border. Abdomen: soft non tender non distended positive bowel sounds. Extremities: there is no edema , no calf tenderness DP + 1 Bilaterally. Neurologic examination: patient is awake alert and oriented X3 CN II-XII are grossly intact , muscle power 4/5 in bilateral upper and lower extremities. Results CBC & Chem 7: 11/16/19 06:27 11/16/19 06:27 Labs: Abnormal Lab Results - Last 24 Hours (Table) 11/16/19 11/16/19 11/16/19 Range/Units 06:27 06:27 06:27 WBC 10.9 H (3.8-10.6) k/uL APTT 19.4 L (22.0-30.0) sec Sodium 133 L (137-145) mmol/L Glucose 129 H (74-99) mg/dL Total Protein 6.2 L (6.3-8.2) g/dL Thrombosis Risk Factor Assmnt - DVT/VTE Prophylaxis DVT/VTE Prophylaxis: Pharmacologic Prophylaxis ordered, Mechanical Prophylaxis ordered Assessment and Plan Assessment: Assessment and plan: 1. Acute hypoxemic respiratory failure due to acute diastolic heart failure secondary to atrial flutter /fibrillation and COPD exacerbation. we will continue with O2 support , Solu-medrol 60 mg IVP Q 6 hours, Duoneb 3 ml neb QID and Pulmicort 0.5 mg NEB bid, we will continue with cadizem drip and heparin drip, cardiology and pulmonary consult. 2. New onset atrial flutter/fibrillation. we will continue with cardizem drip and heparin drip, echocardiogram will be done. 3. Acute Diastolic heart failure. we will continue with Atenolol 50 mg orally daily along with cardizem drip, we will check echocardiogram we will continue with Lasix 40 mg IVP Q 12hours. 4. Acute COPD exacerbation. we will continue with O2 support, Duoneb 3 ml nebulization 4 times daily along with Pulmicort 0.5 mg nebulization bid, we will continue with Solu-Medrol 60 mg IVP q 6 hours, pulmonary consult. 5. Hypertension and hypertensive cardiovascular disease. we will continue with Atenolol 50 mg orally daily and amlodipine 2.5 mg po daily. 6. Hyperlipidemia. we will continue with low cholesterol diet. 7. Hypothyroidism. we will continue with Synthroid 50 mcg orally daily. 8. GERD with esophagitis. we will continue with Omeprazole 40 mg orally daily. 9. Chronic tobacco use and dependence. we will continue with Nicotine patch, counseled about smoking cessation. 10. Insomnia. we will start Restoril 15 mg orally at bedtime. 11. DVT prophylaxis. we will continue with heparin drip for now. 12. GI prophylaxis. we will continue with PPI. 13. Admits to inpatient estimated length of stay 2 midnights. 14. Full code.
[2019-11-17] MEDS: PANTOPRAZOLE 40 MG TABLET PO SCH ×2 (06:39→17:51)
[2019-11-17] MEDS: LEVOTHYROXINE 50 MCG TAB PO SCH (06:39)
[2019-11-17] MEDS: DILTIAZEM 125 MG in SODIUM CHLORIDE 0.9% 100 ML IV SCH (06:40)
[2019-11-17 06:44] LABS: Basophils % (A) 0 %; Eosinophils # (A) 0.1 k/uL (0-0.7); Eosinophils % (A) 0 %; HCT 37.3 % (34.0-46.0); HGB 12.1 gm/dL (11.4-16.0); Hypochromasia Slight; Lymphocytes % (A) 7 %; MCH 28.8 pg (25.0-35.0); MCHC 32.5 g/dL (31.0-37.0); MCV 88.6 fL (80.0-100.0); Mean Platelet Volume 7.1; Monocytes # (A) 0.4 k/uL (0-1.0); Monocytes % (A) 2 %; Neutrophils # (A) 13.9 k/uL (1.3-7.7); Neutrophils % (A) 91 %; Platelet Count 287 k/uL (150-450); RBC 4.21 m/uL (3.80-5.40); RDW 14.3 % (11.5-15.5); WBC 15.4 k/uL (3.8-10.6)
[2019-11-17 06:48] LABS: Partial Thromboplastin Time 31.1 sec (22.0-30.0); Prothrombin Time 9.9 sec (9.0-12.0)
[2019-11-17 06:57] LABS: Calcium 9.1 mg/dL (8.4-10.2); Magnesium 1.8 mg/dL (1.6-2.3); Potassium 4.5 mmol/L (3.5-5.1)
[2019-11-17] MEDS: BUDESONIDE 0.5 MG/2 ML NEBU INHALATION SCH ×2 (08:48→20:15)
[2019-11-17] MEDS ORDERED: atenoloL 50 MG TAB PO SCH (09:00)
[2019-11-17] MEDS ORDERED: MAGNESIUM SULFATE-D5W PMX 1 GM in DEXTROSE/WATER 1 100ML.BAG IVPB ONE (09:05)
--- NOTE | 2019-11-17 09:14 | XR ---
EXAMINATION TYPE: XR chest 2V DATE OF EXAM: 11/17/2019 COMPARISON: 11/16/2019 HISTORY: Shortness of breath TECHNIQUE: Frontal and lateral views of the chest are obtained. FINDINGS: Scattered senescent parenchymal changes noted. Hyperinflation compatible with COPD. Persistent but improving right lower lobe infiltrate. Heart size is stable. Mediastinal structures are stable and grossly unremarkable. No evidence for hilar prominence. Degenerative changes dorsal spine. IMPRESSION: 1. Persistent but improving right lower lobe infiltrate.
--- NOTE | 2019-11-17 09:26 | ECHOF ---
Referral Reason:chf MEASUREMENTS -------- HEIGHT: 162.6 cm WEIGHT: 86.2 kg BP: RVIDd: 3.1 cm (< 3.3) IVSd: 1.3 cm (0.6 - 1.1) LVIDd: 4.3 cm (3.9 - 5.3) LVPWd: 1.3 cm (0.6 - 1.1) IVSs: 1.7 cm LVIDs: 3.1 cm LVPWs: 2.0 cm LAESV Index (A-L): 45.88 ml/m Ao Diam: 2.5 cm (2.0 - 3.7) AV Cusp: 1.3 cm (1.5 - 2.6) MV EXCURSION: 15.279 mm (> 18.000) MV EF SLOPE: 81 mm/s (70 - 150) EPSS: 0.5 cm RAP: 20.00 mmHg RVSP: 64.70 mmHg FINDINGS -------- Atrial fibrillation. This was a technically adequate study. The left ventricular size is normal. There is mild concentric left ventricular hypertrophy. Overa ll left ventricular systolic function is normal with, an EF between 55 - 60 %. Left ventricular reagan limg pressure cannot be estimated due to Atrial fibrillation. The right ventricle is normal in size. LA is severely dilated >40 ml/m2 The right atrium is mildly enlarged. Interatrial and interventricular septum intact. The aortic valve was not well visualized. There is no evidence of aortic regurgitation. There is no evidence of aortic stenosis. Mild mitral annular calcification present. Moderate mitral regurgitation is present. [id number] tricuspid regurgitation present. There is moderate to severe pulmonary hypertensio n. The right ventricular systolic pressure, as measured by Doppler, is 64.70mmHg. The pulmonic valve was not well visualized. There is no pulmonic regurgitation present. The aortic root size is normal. The inferior vena cava is dilated with no significant inspiratory collapse which is consistent estima kasi right atrial pressure of >20 mmHg. There is no pericardial effusion. CONCLUSIONS -------- 1. There is mild concentric left ventricular hypertrophy. 2. Overall left ventricular systolic function is normal with, an EF between 55 - 60 %. 3. Left ventricular fillimg pressure cannot be estimated due to Atrial fibrillation. 4. LA is severely dilated >40 ml/m2 5. The right atrium is mildly enlarged. 6. The aortic valve was not well visualized. 7. Mild mitral annular calcification present. 8. Moderate mitral regurgitation is present. 9. [id number] tricuspid regurgitation present. 10. There is moderate to severe pulmonary hypertension. 11. The inferior vena cava is dilated with no significant inspiratory collapse which is consistent es timated right atrial pressure of >20 mmHg. 12. There is no pericardial effusion. COMBINATION BUILDING INSPECTOR: Lacie Barry RDCS
[2019-11-17] MEDS: ASPIRIN 81 MG PO SCH (09:50)
[2019-11-17] MEDS: APIXABAN 5 MG TAB PO SCH ×2 (09:50→21:30)
[2019-11-17] MEDS: METOPROLOL TARTRATE 25 MG TAB PO SCH ×3 (09:50→21:30)
[2019-11-17] MEDS: FUROSEMIDE 10 MG/ML 4 ML VIAL IV SCH (09:51)
[2019-11-17 11:27] VITALS: BMI 32.1
[2019-11-17] MEDS: HEPARIN SOD,PORK IN 0.45% NACL 25,000 UNIT in 0.45% NACL 1 250ML.BAG IV SCH (11:39)
--- NOTE | 2019-11-17 12:41 | P.PN ---
Subjective Progress Note Date: 11/17/19 Principal diagnosis: Shortness of breath and weakness 78-year-old white female patient of , with past medical history of COPD, chronic congestive heart failure, hypertension, coronary artery disease with previous PCI and stenting, GERD, who presented to the emergency department on 11/16/2019 with complaints of shortness of breath, orthopnea, and generalized weakness. Her shortness of breath was also exacerbated by any exertion, including walking. She denied any chest pain, denied any fever or chills. She is a chronic smoker, still smoking a pack a day. Her home maintenance inhalers include Symbicort, and albuterol. Patient is not on oxygen at baseline. Chest x-ray on admission showed prominence and central vascularity and interstitium, no pneumothorax or pleural effusions, increased bibasilar density. Lab work showed a white blood cell count of 10.9 hemoglobin of 12.2, INR is 1.3, serum sodium is 133, the rest of the electrolytes and renal profile were unremarkable, plasma lactic acid was 1.2, LFTs were within normal limits, troponins were less than 0.0123, proBNP was elevated at 3010, TSH was within normal limits at 2.36. EKG was obtained in the emergency department showing A. fib flutter, with frequent PVCs. Her previous echocardiogram from May 2018 showed EF of 55- 60%, left ventricular wall thickness was within normal limits, no aortic stenosis or regurgitation, mild mitral regurgitation, trace tricuspid regurgitation, no evidence of pulmonary hypertension with right-sided pressures of 12.5 mmHg. patient was started on IV diuretics in the emergency department, she was started on IV heparin, and Cardizem infusion which is not currently running, she was placed on BiPAP support initially, she is currently on nasal cannula, at 4 L/m, her pulse ox is 94%, she is diuresing. She is getting up to the commode, her shortness of breath has improved, she has a bibasilar crackles on physical exam, and some limited wheezing. On 11/17/2019 patient seen in follow-up on selective care unit. Patient continues on IV Lasix, she is diuresing, she is -1.3 L fluid balance over the last 24 hours, breathing easier, no crackles on today's exam, patient does however still has some scattered wheezing. Complaints of chest pain, she continues on IV Solu-Medrol, IV Lasix, today's labs have been reviewed, showing white blood cell count of 15.4, hemoglobin of 12.1, sodium is 134, potassium is 4.5, B1 is 20, and creatinine is 1.1. Her troponins have been negative 3, her chest x-ray shows persistent but improving right lower lobe infiltrate. The echocardiogram showed mild LVH, EF between 55-60%, moderate mitral regurg, mild to moderate tricuspid regurg, and moderate to severe pulmonary hypertension and inferior vena cava dilated with no significant inspiratory collapse and right atrial pressure of greater than 20 mmHg. No significant lower extremity edema. She remains on Cardizem infusion at 5 mg per hour. Heart rate is currently controlled, in the 80s and 90s BPM, atrial fib flutter Objective - Vital Signs Vital signs: Vital Signs Temp 97.8 F 11/17/19 12:00 Pulse 88 11/17/19 12:00 Resp 18 11/17/19 12:00 BP 137/80 11/17/19 12:00 Pulse Ox 96 11/17/19 08:00 Intake & Output 11/16/19 11/17/19 11/17/19 18:59 06:59 18:59 Intake Total 119.833 180 Balance 119.833 180 Weight 86.183 kg 84.8 kg 84.8 kg Intake: Intake, IV Titration 119.833 Amount Diltiazem 125 mg In 119.833 Sodium Chloride 0.9% 100 ml @ Per Protocol IV .Q0M [facility] Rx#:[id number] Oral 180 Other: Voiding Method Bedside Commode Bedside Commode Bedside Commode # Voids 1 3 - Exam GENERAL EXAM: Alert, very pleasant, 78-year-old white female, on 4 L of oxygen and the pulse ox of 96%, comfortable in no apparent distress. HEAD: Normocephalic/atraumatic. EYES: Normal reaction of pupils, equal size. Conjunctiva pink, sclera white. NOSE: Clear with pink turbinates. THROAT: No erythema or exudates. NECK: No masses, no JVD, no thyroid enlargement, no adenopathy. CHEST: No chest wall deformity. Symmetrical expansion. LUNGS: Equal air entry with expiratory wheezing, no crackles auscultated on today's exam CVS: Irregular rate and rhythm, normal S1 and S2, no gallops, no murmurs, no rubs ABDOMEN: Soft, nontender. No hepatosplenomegaly, normal bowel sounds, no guarding or rigidity. EXTREMITIES: No clubbing, no edema, no cyanosis, 2+ pulses and upper and lower extremities. MUSCULOSKELETAL: Muscle strength and tone normal. SPINE: No scoliosis or deformity SKIN: No rashes CENTRAL NERVOUS SYSTEM: Alert and oriented -3. No focal deficits, tone is normal in all 4 extremities. PSYCHIATRIC: Alert and oriented -3. Appropriate affect. Intact judgment and insight. - Labs CBC & Chem 7: 11/17/19 06:19 11/17/19 06:19 Labs: Abnormal Lab Results - Last 24 Hours (Table) 11/16/19 11/16/19 11/17/19 Range/Units 13:03 14:45 06:19 WBC 15.4 H (3.8-10.6) k/uL Neutrophils # 13.9 H (1.3-7.7) k/uL APTT 56.4 H (22.0-30.0) sec Sodium (137-145) mmol/L BUN (7-17) mg/dL Creatinine (0.52-1.04) mg/dL Glucose (74-99) mg/dL Ur Leukocyte Esterase Trace H (Negative) Urine Bacteria Occasional H (None) /hpf Urine Mucus Rare H (None) /hpf 11/17/19 11/17/19 Range/Units 06:19 06:19 WBC (3.8-10.6) k/uL Neutrophils # (1.3-7.7) k/uL APTT 31.1 H (22.0-30.0) sec Sodium 134 L (137-145) mmol/L BUN 20 H (7-17) mg/dL Creatinine 1.11 H (0.52-1.04) mg/dL Glucose 178 H (74-99) mg/dL Ur Leukocyte Esterase (Negative) Urine Bacteria (None) /hpf Urine Mucus (None) /hpf Assessment and Plan Plan: Assessment: #1. Acute exacerbation of chronic congestive heart failure, with previously documented diastolic dysfunction, repeat echocardiogram showed mild LVH, EF 55- 60% #2. Mild exacerbation of chronic obstructive pulmonary disease, not oxygen dependent at baseline #3. Acute hypoxic respiratory failure related to acute exacerbation of diastolic CHF and COPD, did require brief BiPAP support, remains on supplemental oxygen #4. Hypertension #5. Coronary artery disease with previous history of stenting #6. GERD/reflux #7. Chronic and ongoing history of smoking, still smoking a pack a day #8. Hypothyroidism, on thyroid replacement therapy #9. Severe pulmonary hypertension, with right-sided pressure of 64.7 mmHg, and mild to moderate tricuspid regurgitation, moderate mitral regurgitation Plan: We will switch over to oral diuretics, 40 mg of Lasix twice daily, today's chest x-ray has been showing persistent but improving lower lobe infiltrate, wean FiO2, continue IV steroids, breathing treatments, patient is breathing easier, continue oral anticoagulation, rate is better controlled, remains in a flutter, no fever or chills, no acute events overnight, repeat electrolytes and renal profile in the morning I performed a history & physical examination of the patient and discussed their management with my nurse practitioner, Jazmine York. I reviewed the nurse practitioner's note and agree with the documented findings and plan of care. Lung sounds are positive for scattered wheezes, bibasilar crackles. The findings and the impression was discussed with the patient. I attest to the documentation by the nurse practitioner. Time with Patient: Less than 30
[2019-11-17] MEDS: INSULIN ASPART (NovoLOG) 100 UNIT/ML VIAL SQ SCH ×3 (12:48→21:30)
--- NOTE | 2019-11-17 13:39 | P.PN ---
Subjective Progress Note Date: 11/17/19 This is a 78 year old female with a previous medical history significant for hypertension and hypertensive cardiovascular disease, hyperlipidemia, chronic tobacco use and dependence with COPD, GERD and insomnia, patient developed to have increased shortness of breath about a week ago with significant orthopnea and PND, she finally decided to call EMS yesterday and she was brought into the ER at [facility] whee she was found to have a new onset atrial flutter with variable response and CXR showed CHF along with COPD initially she was placed on BIPAP then she was switches to nasal canula, she was admitted to the hospital after starting her on heparin drip and cardizem drip along with pulmonary and cardiology consult. 11/16: Echocardiogram reveals EF of 55-60%, LA severely dilated greater than 40 ml/m2, moderate mitral regurgitation, mild to moderate tricuspid regurgitation, moderate to severe pulmonary hypertension. Repeat chest x-ray reveals persistent but improving right lower lobe infiltrate. Patient has been seen by Dr. Avendaño and steroids were added have 40 mg every 8 hours IV. Patient has been seen by cardiology and Cardizem drip was discontinued. Patient was started on Lopressor 25 mg 3 times daily and eliquis 5 mg twice daily.troponins were negative on 3 draws. TSH 2.360. Repeat renal function reveals BUN of 20 creatinine 1.11. Blood sugar 178. WBC 15.4. Urinalysis showed trace leukoesterase, occasional bacteria. COVID-19 not detected. Blood culture no growth at 24 hours. Patient's breathing status is improved today from yesterday but continues to have wheezing. No change in Solu-Medrol. Patient states that the Restoril did not help her sleeping and asking for another medication to help. Ambien will be added for now. We will add in PT and OT for evaluation for possible subacute rehab. Objective - Vital Signs Vital signs: Vital Signs Temp 97.3 F L 11/17/19 08:00 Pulse 97 11/17/19 11:39 Resp 18 11/17/19 08:00 BP 156/78 11/17/19 08:00 Pulse Ox 96 11/17/19 08:00 Intake & Output 11/16/19 11/17/19 11/17/19 18:59 06:59 18:59 Intake Total 119.833 180 Balance 119.833 180 Weight 86.183 kg 84.8 kg 84.8 kg Intake: Intake, IV Titration 119.833 Amount Diltiazem 125 mg In 119.833 Sodium Chloride 0.9% 100 ml @ Per Protocol IV .Q0M [facility] Rx#:[id number] Oral 180 Other: Voiding Method Bedside Commode Bedside Commode Bedside Commode # Voids 1 3 - Exam Review of Systems Constitutional: Reports fatigue, Reports weakness Eyes: denies blurred vision, denies bulging eye, denies decreased vision Ears, nose, mouth and throat: Denies dysphagia, Denies neck lump, Denies sore throat Cardiovascular: Reports chest pain, Reports decreased exercise tolerance, Reports dyspnea on exertion, Reports orthopnea, Reports rapid heart beat, Reports shortness of breath Respiratory: Reports congestion, Reports cough, Reports cough with sputum, Reports dyspnea, Reports wheezing Gastrointestinal: Denies abdominal pain, Denies bloating, Denies BRBPR, Denies heartburn, Denies melena, Denies nausea, Denies vomiting Genitourinary: Reports nocturia, Denies dysuria Menstruation: Reports postmenopausal Musculoskeletal: Denies myalgias Musculoskeletal: absent: ankle pain, ankle stiffness, ankle swelling, elbow pain, elbow stiffness, elbow swelling, foot pain, foot stiffness, foot swelling, hand pain, hand stiffness, hand swelling, hip pain, hip stiffness, hip swelling, knee pain, knee stiffness, knee swelling, shoulder pain, shoulder stiffness, shoulder swelling, wrist pain, wrist stiffness, wrist swelling Integumentary: Denies pruritus, Denies rash Neurological: Denies numbness, Denies weakness Psychiatric: Reports anxiety, Reports depression, Reports sleep disturbances, Denies sadness/tearfulness, Denies suicidal ideation Endocrine: Denies fatigue, Denies weight change Physical examination: GEN: This is a 78-year-old female. She is resting on the edge of the bed and appears to be comfortable and in no acute distress. HEENT: head is atraumatic normocephalic pupils were equal round reactive to light and accommodations, extra ocular muscle movements were intact. Neck: supple, no JVP. Chest: decrease breath sounds at the bases with few ronchi moderate expiratory wheezes, no intercostal retraction at rest. Heart: first heart sound is depressed, second heart sound is normal irregularly irregular, there is BEN 2/6 located at the left sternal border. Abdomen: soft non tender non distended positive bowel sounds. Extremities: there is no edema , no calf tenderness DP + 1 Bilaterally. Neurologic examination: patient is awake alert and oriented X3 CN II-XII are grossly intact , muscle power 4/5 in bilateral upper and lower extremities. - Labs CBC & Chem 7: 11/17/19 06:19 11/17/19 06:19 Labs: Abnormal Lab Results - Last 24 Hours (Table) 11/16/19 11/16/19 11/17/19 Range/Units 13:03 14:45 06:19 WBC 15.4 H (3.8-10.6) k/uL Neutrophils # 13.9 H (1.3-7.7) k/uL APTT 56.4 H (22.0-30.0) sec Sodium (137-145) mmol/L BUN (7-17) mg/dL Creatinine (0.52-1.04) mg/dL Glucose (74-99) mg/dL Ur Leukocyte Esterase Trace H (Negative) Urine Bacteria Occasional H (None) /hpf Urine Mucus Rare H (None) /hpf 11/17/19 11/17/19 Range/Units 06:19 06:19 WBC (3.8-10.6) k/uL Neutrophils # (1.3-7.7) k/uL APTT 31.1 H (22.0-30.0) sec Sodium 134 L (137-145) mmol/L BUN 20 H (7-17) mg/dL Creatinine 1.11 H (0.52-1.04) mg/dL Glucose 178 H (74-99) mg/dL Ur Leukocyte Esterase (Negative) Urine Bacteria (None) /hpf Urine Mucus (None) /hpf Assessment and Plan Plan: 1. Acute hypoxemic respiratory failure due to acute diastolic heart failure secondary to atrial flutter /fibrillation and COPD exacerbation. we will continue with O2 support , Solu-medrol 40 mg IVP Q 8 hours, Duoneb 3 ml neb QID and Pulmicort 0.5 mg NEB bid, patient is off Cardizem and heparin drip, cardiology and pulmonary consult appreciated. 2. New onset atrial flutter/fibrillation. Eliquis 5 mg twice daily and Lopre ssor 25 mg 3 times daily. Echocardiogram as above. 3. Acute Diastolic heart failure. Lopressor and Lasix 40 mg changed to oral twice daily. 4. Acute COPD exacerbation. we will continue with O2 support, Duoneb 3 ml nebulization 4 times daily along with Pulmicort 0.5 mg nebulization bid, we will continue with Solu-Medrol 60 mg IVP q 6 hours, pulmonary consult. 5. Hypertension and hypertensive cardiovascular disease. we will continue with Atenolol 50 mg orally daily and amlodipine 2.5 mg po daily. 6. Hyperlipidemia. we will continue with low cholesterol diet. 7. Hypothyroidism. we will continue with Synthroid 50 mcg orally daily. 8. GERD with esophagitis. we will continue with Omeprazole 40 mg orally daily. 9. Chronic tobacco use and dependence. we will continue with Nicotine patch, counseled about smoking cessation. 10. Insomnia. Change Restoril to Ambien at bedtime. 11. DVT prophylaxis. we will continue with heparin drip for now. 12. GI prophylaxis. we will continue with PPI. 13. COVID-19 infection not present. 14. Full code. Discharge plan: Most likely home with home care. PT and OT for possible subacute rehab. Impression and plan of care have been directed as dictated by the signing physician. Varsha Rodarte nurse practitioner acting as scribe for signing leny handley.
--- NOTE | 2019-11-17 16:35 | CONS ---
CONSULTATION This is a 78-year-old lady with a known history of CAD with stenting in the past 2005, details of which are not available. She also has history of smoking. She continues to smoke heavily and also comes in with exacerbation of COPD. She has been hospitalized with exacerbation of COPD, hypoxia, and also has developed what seems to be a new onset atrial fibrillation with moderate ventricular rate. She is also having frequent isolated ventricular ectopic beats as well. I evaluated the patient and recommended that we will give her a gram of magnesium. Potassium level is 4.5. I also started her on a beta selene orally. Her troponins have been normal. Thyroid functions are normal. PAST MEDICAL HISTORY: 1. Smoking and chronic obstructive pulmonary disease. 2. History of coronary artery disease with prior stenting, details unavailable. 3. Patient has a history of a negative stress test that was performed in May of 2018. 4. She also has a history of hypertension and hypercholesterolemia. 5. She is status post colonoscopy, bilateral cataract surgery. MEDICATIONS: At home include aspirin 81 mg daily, atenolol 50 mg daily, omeprazole 20 mg daily, amlodipine 2.5 daily, vitamin supplements. She is on a Symbicort inhaler, thyroid supplements. ALLERGIES: PENICILLIN. PHYSICAL EXAMINATION: On examination, blood pressure is 150/70, pulse rate is about 110, irregular. HEENT: Unremarkable. Fundus was not examined by me. Neck is supple. There is JVD 1 cm, no carotid bruit. Heart exam reveals S1, S2 heard normally, short systolic murmur noted, irregular rhythm noted. Lungs reveal scattered rhonchi. Abdomen is soft, nontender. Lower extremities reveal diminished pulses. Central nervous system is grossly within normal limits. IMPRESSION: 1. New-onset atrial fibrillation with moderate ventricular rate. 2. Exacerbation of chronic obstructive pulmonary disease. 3. History of CAD prior stenting, details unclear. 4. History of hypertension. 5. Hyperlipidemia. RECOMMENDATION: I am recommending that we initiate her on apixaban 5 mg b.i.d., initiate her beta blockers 25 mg b.i.d., Lopressor and also magnesium supplements. Patient has frequent isolated PVCs but no intervention other than correcting electrolyte imbalance and adding beta blockers as advised. Will continue to follow her during her hospitalization. Prognosis remains guarded. MMODL / IJN: [id number] /
[2019-11-17] MEDS: FUROSEMIDE 40 MG TAB PO SCH (16:54)
[2019-11-17 17:45] LABS: Glucose,Whole Blood 189 mg/dL (75-99)
[2019-11-17 21:25] LABS: Glucose,Whole Blood 186 mg/dL (75-99)
[2019-11-17] MEDS: amLODIPine 2.5 MG TAB PO SCH (21:30)
[2019-11-17] MEDS: ZOLPIDEM 5 MG TAB PO PRN (23:23)
[2019-11-18] MEDS: IPRATROPIUM-ALBUTEROL 3 ML NEB INHALATION SCH ×6 (03:48→23:35)
[2019-11-18 06:14] LABS: Glucose,Whole Blood 179 mg/dL (75-99)
[2019-11-18] MEDS: INSULIN ASPART (NovoLOG) 100 UNIT/ML VIAL SQ SCH ×4 (06:40→21:01)
[2019-11-18] MEDS: PANTOPRAZOLE 40 MG TABLET PO SCH ×2 (06:40→17:31)
[2019-11-18] MEDS: LEVOTHYROXINE 50 MCG TAB PO SCH (06:40)
[2019-11-18 08:11] LABS: Basophils % (A) 0 %; Eosinophils % (A) 0 %; HCT 36.2 % (34.0-46.0); HGB 11.4 gm/dL (11.4-16.0); Hypochromasia Slight; Lymphocytes % (A) 6 %; MCH 27.6 pg (25.0-35.0); MCHC 31.6 g/dL (31.0-37.0); MCV 87.4 fL (80.0-100.0); Mean Platelet Volume 7.4; Monocytes # (A) 0.5 k/uL (0-1.0); Monocytes % (A) 3 %; Neutrophils % (A) 91 %; Platelet Count 257 k/uL (150-450); RBC 4.15 m/uL (3.80-5.40); RDW 14.5 % (11.5-15.5); WBC 17.7 k/uL (3.8-10.6)
[2019-11-18] MEDS: BUDESONIDE 1 MG/2 ML NEBU INHALATION SCH ×2 (08:20→19:43)
[2019-11-18] MEDS: BUDESONIDE 0.5 MG/2 ML NEBU INHALATION SCH (08:28)
[2019-11-18] MEDS: APIXABAN 5 MG TAB PO SCH ×2 (08:45→21:01)
[2019-11-18] MEDS: METOPROLOL TARTRATE 25 MG TAB PO SCH (08:45)
[2019-11-18] MEDS: methylPREDNISolone SOD SUCCI 40 MG/ML 1 ML VIAL IV SCH (08:45)
[2019-11-18] MEDS: ASPIRIN 81 MG PO SCH (08:45)
[2019-11-18] MEDS: FUROSEMIDE 40 MG TAB PO SCH ×2 (08:45→16:03)
[2019-11-18] MEDS ORDERED: METOPROLOL TARTRATE 25 MG TAB PO STA (10:41)
[2019-11-18] MEDS: ACETAMINOPHEN TAB 325 MG TAB PO PRN (11:41)
--- NOTE | 2019-11-18 11:48 | P.PN ---
Subjective Progress Note Date: 11/18/19 This is a 78 year old female with a previous medical history significant for hypertension and hypertensive cardiovascular disease, hyperlipidemia, chronic tobacco use and dependence with COPD, GERD and insomnia, patient developed to have increased shortness of breath about a week ago with significant orthopnea and PND, she finally decided to call EMS yesterday and she was brought into the ER at [facility] whee she was found to have a new onset atrial flutter with variable response and CXR showed CHF along with COPD initially she was placed on BIPAP then she was switches to nasal canula, she was admitted to the hospital after starting her on heparin drip and cardizem drip along with pulmonary and cardiology consult. 11/16: Echocardiogram reveals EF of 55-60%, LA severely dilated greater than 40 ml/m2, moderate mitral regurgitation, mild to moderate tricuspid regurgitation, moderate to severe pulmonary hypertension. Repeat chest x-ray reveals persistent but improving right lower lobe infiltrate. Patient has been seen by Dr. Avendaño and steroids were added have 40 mg every 8 hours IV. Patient has been seen by cardiology and Cardizem drip was discontinued. Patient was started on Lopressor 25 mg 3 times daily and eliquis 5 mg twice daily.troponins were negative on 3 draws. TSH 2.360. Repeat renal function reveals BUN of 20 creatinine 1.11. Blood sugar 178. WBC 15.4. Urinalysis showed trace leukoesterase, occasional bacteria. COVID-19 not detected. Blood culture no growth at 24 hours. Patient's breathing status is improved today from yesterday but continues to have wheezing. No change in Solu-Medrol. Patient states that the Restoril did not help her sleeping and asking for another medication to help. Ambien will be added for now. We will add in PT and OT for evaluation for possible subacute rehab. 11/17: This morning, patient has increasing wheezing and tightness. SoluMedrol will be increased to 60 mg every 6 hours and Pulmicort increased 1 mg twice daily. IV Lasix was transitioned to oral Lasix yesterday. Metoprolol has been increased to 50 mg twice daily by cardiology as her heart rate this morning was in the 120s and 130s. child monitor has been atrial fibrillation. Repeat blood work reveals WBC 17.7, hemoglobin 11.4. Blood sugars are running in the high 100s. Patient is eating between 50 and 100% of her meals. PT and OT have recommended subacute rehab. Discussed discharge planning with the patient and she becomes very anxious about option of subacute rehab. She reluctantly agrees to go to [facility]. We do not expect that she will be ready until Friday. Patient is hoping that she will be improved enough to go home but this is doubtful. pharmacy benefit manager is following closely for discharge planning. Objective - Vital Signs Vital signs: Vital Signs Temp 97.7 F 11/17/19 20:00 Pulse 88 11/18/19 04:05 Resp 18 11/18/19 03:28 BP 138/71 11/18/19 03:28 Pulse Ox 100 11/18/19 03:28 Intake & Output 11/17/19 11/18/19 11/18/19 18:59 06:59 18:59 Intake Total 402 Output Total 3 Balance 399 Weight 84.8 kg 85.1 kg Intake: Oral 402 Output: Urine 3 Other: Voiding Method Bedside Commode Bedside Commode # Voids 300 2 - Exam Review of Systems Constitutional: Reports fatigue, Reports weakness Eyes: denies blurred vision, denies bulging eye, denies decreased vision Ears, nose, mouth and throat: Denies dysphagia, Denies neck lump, Denies sore throat Cardiovascular: Reports chest pain, Reports decreased exercise tolerance, Rep orts dyspnea on exertion, Reports orthopnea, Reports rapid heart beat, Reports shortness of breath Respiratory: Reports congestion, Reports cough, Reports cough with sputum, R eports dyspnea, Reports increased wheezing Gastrointestinal: Denies abdominal pain, Denies bloating, Denies BRBPR, Denies heartburn, Denies melena, Denies nausea, Denies vomiting Genitourinary: Reports nocturia, Denies dysuria Menstruation: Reports postmenopausal Musculoskeletal: Denies myalgias Musculoskeletal: absent: ankle pain, ankle stiffness, ankle swelling, elbow pa in, elbow stiffness, elbow swelling, foot pain, foot stiffness, foot swelling, hand pain, hand stiffness, hand swelling, hip pain, hip stiffness, hip swelling, knee pain, knee stiffness, knee swelling, shoulder pain, shoulder stiffness, shoulder swelling, wrist pain, wrist stiffness, wrist swelling Integumentary: Denies pruritus, Denies rash Neurological: Denies numbness, Denies weakness Psychiatric: Reports anxiety, reports insomnia, Reports depression, Reports sleep disturbances, Denies sadness/tearfulness, Denies suicidal ideation Endocrine: Denies fatigue, Denies weight change Physical examination: GEN: This is a 78-year-old female. She is resting on the edge of the bed and appears to be anxious HEENT: head is atraumatic normocephalic pupils were equal round reactive to light and accommodations, extra ocular muscle movements were intact. Neck: supple, no JVP. Chest: decrease breath sounds with moderate expiratory wheezes, no intercostal retraction at rest. Heart: first heart sound is depressed, second heart sound is normal irregularly irregular, there is BEN 2/6 located at the left sternal border. Abdomen: soft non tender non distended positive bowel sounds. Extremities: there is no edema , no calf tenderness DP + 1 Bilaterally. Neurologic examination: patient is awake alert and oriented X3 CN II-XII are grossly intact , muscle power 4/5 in bilateral upper and lower extremities. - Labs CBC & Chem 7: 11/18/19 06:50 11/17/19 06:19 Labs: Abnormal Lab Results - Last 24 Hours (Table) 11/17/19 11/17/19 11/18/19 Range/Units 17:42 21:24 06:11 POC Glucose (mg/dL) 189 H 186 H 179 H (75-99) mg/dL Microbiology - Last 24 Hours (Table) 11/16/19 10:11 Blood Culture - Preliminary Blood No Growth after 24 hours Assessment and Plan Plan: 1. Acute hypoxemic respiratory failure due to acute diastolic heart failure secondary to atrial flutter /fibrillation and COPD exacerbation. we will continue with O2 support , Solu-medrol increased to 60 mg every 6 hours, Duoneb 3 ml neb QID and Pulmicort increased to 1 mg NEB bid, cardiology and pulmonary consult appreciated. 2. New onset atrial flutter/fibrillation. Eliquis 5 mg twice daily and Lopressor increased by cardiology to 50 mg twice daily. Echocardiogram as above. 3. Acute Diastolic heart failure. Continue Lopressor and Lasix 40 mg oral twice daily. 4. Acute COPD exacerbation. we will continue with O2 support, Duoneb 3 ml nebulization 4 times daily along with Pulmicort 1 mg nebulization bid, we will continue with Solu-Medrol 60 mg IVP q 6 hours, pulmonary consult. 5. Hypertension and hypertensive cardiovascular disease. Continue Lopressor and amlodipine 2.5 mg po daily. 6. Hyperlipidemia. we will continue with low cholesterol diet. 7. Hypothyroidism. we will continue with Synthroid 50 mcg orally daily. 8. GERD with esophagitis. Protonix 40 mg orally daily. 9. Chronic tobacco use and dependence. we will continue with Nicotine patch, counseled about smoking cessation. 10. Insomnia. Continue Ambien at bedtime. 11. Generalized anxiety disorder. Patient started on Xanax 0.25 mg twice daily as needed. 12. DVT prophylaxis. we will continue with heparin drip for now. 13. GI prophylaxis. we will continue with PPI. 14. COVID-19 infection not present. Full code. Discharge plan: [facility] for subacute rehab on Friday under the care of Dr Davis. Impression and plan of care have been directed as dictated by the signing physician. Varsha Rodarte nurse practitioner acting as scribe for signing physician.
[2019-11-18 12:34] LABS: Glucose,Whole Blood 154 mg/dL (75-99)
[2019-11-18] MEDS: methylPREDNISolone SOD SUCCI 125 MG/2 ML VIAL IV SCH ×3 (12:42→23:50)
[2019-11-18] MEDS: ALPRAZolam 0.25 MG TAB PO PRN (13:26)
--- NOTE | 2019-11-18 14:45 | PN ---
PROGRESS NOTE Mrs. Montes is in sinus rhythm. Developed intermittent atrial fib and isolated PVCs. She has significant COPD, but breathing is somewhat better. Vitals are stable. JVD is 1 cm. No carotid bruit. S1-S2 heard normally. Short systolic murmur noted. Lungs reveal diminished air entry, scattered rhonchi. Abdomen and lower extremity exam unchanged. PLAN: Plan is to increase Lopressor to 50 mg b.i.d. Check a CBC, BMP, EKG in the morning and continue anticoagulation as ordered. MMODL / IJN: [id number] /
--- NOTE | 2019-11-18 16:03 | P.PN ---
Subjective Progress Note Date: 11/18/19 Principal diagnosis: Shortness of breath and weakness 78-year-old white female patient of , with past medical history of COPD, chronic congestive heart failure, hypertension, coronary artery disease with previous PCI and stenting, GERD, who presented to the emergency department on 11/16/2019 with complaints of shortness of breath, orthopnea, and generalized weakness. Her shortness of breath was also exacerbated by any exertion, including walking. She denied any chest pain, denied any fever or chills. She is a chronic smoker, still smoking a pack a day. Her home maintenance inhalers include Symbicort, and albuterol. Patient is not on oxygen at baseline. Chest x-ray on admission showed prominence and central vascularity and interstitium, no pneumothorax or pleural effusions, increased bibasilar density. Lab work showed a white blood cell count of 10.9 hemoglobin of 12.2, INR is 1.3, serum sodium is 133, the rest of the electrolytes and renal profile were unremarkable, plasma lactic acid was 1.2, LFTs were within normal limits, troponins were less than 0.0123, proBNP was elevated at 3010, TSH was within normal limits at 2.36. EKG was obtained in the emergency department showing A. fib flutter, with frequent PVCs. Her previous echocardiogram from May 2018 showed EF of 55- 60%, left ventricular wall thickness was within normal limits, no aortic stenosis or regurgitation, mild mitral regurgitation, trace tricuspid regurgitation, no evidence of pulmonary hypertension with right-sided pressures of 12.5 mmHg. patient was started on IV diuretics in the emergency department, she was started on IV heparin, and Cardizem infusion which is not currently running, she was placed on BiPAP support initially, she is currently on nasal cannula, at 4 L/m, her pulse ox is 94%, she is diuresing. She is getting up to the commode, her shortness of breath has improved, she has a bibasilar crackles on physical exam, and some limited wheezing. On 11/17/2019 patient seen in follow-up on selective care unit. Patient continues on IV Lasix, she is diuresing, she is -1.3 L fluid balance over the last 24 hours, breathing easier, no crackles on today's exam, patient does however still has some scattered wheezing. Complaints of chest pain, she continues on IV Solu-Medrol, IV Lasix, today's labs have been reviewed, showing white blood cell count of 15.4, hemoglobin of 12.1, sodium is 134, potassium is 4.5, B1 is 20, and creatinine is 1.1. Her troponins have been negative 3, her chest x-ray shows persistent but improving right lower lobe infiltrate. The echocardiogram showed mild LVH, EF between 55-60%, moderate mitral regurg, mild to moderate tricuspid regurg, and moderate to severe pulmonary hypertension and inferior vena cava dilated with no significant inspiratory collapse and right atrial pressure of greater than 20 mmHg. No significant lower extremity edema. She remains on Cardizem infusion at 5 mg per hour. Heart rate is currently controlled, in the 80s and 90s BPM, atrial fib flutter On 11/18/2019 patient seen in follow-up on selective care unit, he is awake and alert, on 5 L of oxygen her pulse ox is 95%, she is afebrile, she remains in atrial fibrillation, with a rate of 112 BPM, still has exertional dyspnea, and still bronchospastic, although somewhat improved, mild pretibial edema, patient has been diuresed, patient has been transitioned to oral Lasix of 40 mg twice daily, she is on oral intake regulation of Eliquis, she is on IV steroids and nebulized bronchodilators. Objective - Vital Signs Vital signs: Vital Signs Temp 98.1 F 11/18/19 12:00 Pulse 112 H 11/18/19 12:02 Resp 20 11/18/19 12:00 BP 165/89 11/18/19 12:00 Pulse Ox 95 11/18/19 12:00 Intake & Output 11/17/19 11/18/19 11/18/19 18:59 06:59 18:59 Intake Total 402 240 Output Total 3 Balance 399 240 Weight 84.8 kg 85.1 kg Intake: Oral 402 240 Output: Urine 3 Other: Voiding Method Bedside Commode Bedside Commode # Voids 300 2 1 # Bowel Movements 0 - Exam GENERAL EXAM: Alert, very pleasant, 78-year-old white female, on 5 L of oxygen and the pulse ox of 95%, comfortable in no apparent distress. HEAD: Normocephalic/atraumatic. EYES: Normal reaction of pupils, equal size. Conjunctiva pink, sclera white. NOSE: Clear with pink turbinates. THROAT: No erythema or exudates. NECK: No masses, no JVD, no thyroid enlargement, no adenopathy. CHEST: No chest wall deformity. Symmetrical expansion. LUNGS: Equal air entry with expiratory wheezing, no crackles auscultated on today's exam CVS: Irregular rate and rhythm, normal S1 and S2, no gallops, no murmurs, no ru bs ABDOMEN: Soft, nontender. No hepatosplenomegaly, normal bowel sounds, no guarding or rigidity. EXTREMITIES: No clubbing, no edema, no cyanosis, 2+ pulses and upper and lower extremities. MUSCULOSKELETAL: Muscle strength and tone normal. SPINE: No scoliosis or deformity SKIN: No rashes CENTRAL NERVOUS SYSTEM: Alert and oriented -3. No focal deficits, tone is normal in all 4 extremities. PSYCHIATRIC: Alert and oriented -3. Appropriate affect. Intact judgment and insight. - Labs CBC & Chem 7: 11/18/19 06:50 11/17/19 06:19 Labs: Abnormal Lab Results - Last 24 Hours (Table) 11/17/19 11/17/19 11/18/19 Range/Units 17:42 21:24 06:11 WBC (3.8-10.6) k/uL Neutrophils # (1.3-7.7) k/uL POC Glucose (mg/dL) 189 H 186 H 179 H (75-99) mg/dL 11/18/19 11/18/19 Range/Units 06:50 12:27 WBC 17.7 H (3.8-10.6) k/uL Neutrophils # 16.0 H (1.3-7.7) k/uL POC Glucose (mg/dL) 154 H (75-99) mg/dL Microbiology - Last 24 Hours (Table) 11/16/19 10:11 Blood Culture - Preliminary Blood No Growth after 48 hours Assessment and Plan Plan: Assessment: #1. Acute exacerbation of chronic congestive heart failure, with previously documented diastolic dysfunction, repeat echocardiogram showed mild LVH, EF 55- 60% #2. Mild exacerbation of chronic obstructive pulmonary disease, not oxygen dependent at baseline #3. Acute hypoxic respiratory failure related to acute exacerbation of diastolic CHF and COPD, did require brief BiPAP support, remains on supplemental oxygen #4. Hypertension #5. Coronary artery disease with previous history of stenting #6. GERD/reflux #7. Chronic and ongoing history of smoking, still smoking a pack a day #8. Hypothyroidism, on thyroid replacement therapy #9. Severe pulmonary hypertension, with right-sided pressure of 64.7 mmHg, and mild to moderate tricuspid regurgitation, moderate mitral regurgitation Plan: Continue current medical treatment, continue oral diuretics, continue bronchodilators, same dose IV steroids, increased breathing treatments to every 4 hours, obtain follow-up electrolytes and renal profile in the morning. Intake and output, and daily weights. Still bronchospastic and dyspneic, although improved, vital signs are stable. We'll continue with current medical treatment I performed a history & physical examination of the patient and discussed their management with my nurse practitioner, Jazmine York. I reviewed the nurse practitioner's note and agree with the documented findings and plan of care. Lung sounds are positive for scattered wheezes, bibasilar crackles. The findings and the impression was discussed with the patient. I attest to the documentation by the nurse practitioner. Time with Patient: Less than 30
[2019-11-18 17:14] LABS: Glucose,Whole Blood 221 mg/dL (75-99)
[2019-11-18 20:45] LABS: Glucose,Whole Blood 142 mg/dL (75-99)
[2019-11-18] MEDS: amLODIPine 2.5 MG TAB PO SCH (21:00)
[2019-11-18] MEDS: METOPROLOL TARTRATE 50 MG TAB PO SCH (21:00)
[2019-11-18] MEDS: ZOLPIDEM 5 MG TAB PO PRN (23:50)
[2019-11-19] MEDS: IPRATROPIUM-ALBUTEROL 3 ML NEB INHALATION SCH ×5 (03:21→20:08)
[2019-11-19] MEDS: ALPRAZolam 0.25 MG TAB PO PRN (04:16)
[2019-11-19 06:36] LABS: Glucose,Whole Blood 164 mg/dL (75-99)
[2019-11-19] MEDS: methylPREDNISolone SOD SUCCI 125 MG/2 ML VIAL IV SCH (06:50)
[2019-11-19] MEDS: LEVOTHYROXINE 50 MCG TAB PO SCH (06:50)
[2019-11-19] MEDS: PANTOPRAZOLE 40 MG TABLET PO SCH ×2 (06:50→19:06)
[2019-11-19] MEDS: INSULIN ASPART (NovoLOG) 100 UNIT/ML VIAL SQ SCH ×4 (06:50→20:39)
[2019-11-19 06:51] LABS: Basophils % (A) 0 %; Eosinophils % (A) 0 %; HCT 35.5 % (34.0-46.0); HGB 11.4 gm/dL (11.4-16.0); Hypochromasia Slight; Lymphocytes # (A) 0.9 k/uL (1.0-4.8); Lymphocytes % (A) 6 %; MCH 28.2 pg (25.0-35.0); Mean Platelet Volume 7.2; Monocytes # (A) 0.4 k/uL (0-1.0); Monocytes % (A) 3 %; Neutrophils # (A) 13.2 k/uL (1.3-7.7); Neutrophils % (A) 91 %; Platelet Count 260 k/uL (150-450); RBC 4.03 m/uL (3.80-5.40); RDW 14.3 % (11.5-15.5); WBC 14.5 k/uL (3.8-10.6)
[2019-11-19 06:58] LABS: Calcium 8.8 mg/dL (8.4-10.2); Potassium 3.6 mmol/L (3.5-5.1)
--- NOTE | 2019-11-19 07:50 | P.PN ---
Subjective Progress Note Date: 11/19/19 This is a 78 year old female with a previous medical history significant for hypertension and hypertensive cardiovascular disease, hyperlipidemia, chronic tobacco use and dependence with COPD, GERD and insomnia, patient developed to have increased shortness of breath about a week ago with significant orthopnea and PND, she finally decided to call EMS yesterday and she was brought into the ER at [facility] whee she was found to have a new onset atrial flutter with variable response and CXR showed CHF along with COPD initially she was placed on BIPAP then she was switches to nasal canula, she was admitted to the hospital after starting her on heparin drip and cardizem drip along with pulmonary and cardiology consult. 11/16: Echocardiogram reveals EF of 55-60%, LA severely dilated greater than 40 ml/m2, moderate mitral regurgitation, mild to moderate tricuspid regurgitation, moderate to severe pulmonary hypertension. Repeat chest x-ray reveals persistent but improving right lower lobe infiltrate. Patient has been seen by Dr. Avendaño and steroids were added have 40 mg every 8 hours IV. Patient has been seen by cardiology and Cardizem drip was discontinued. Patient was started on Lopressor 25 mg 3 times daily and eliquis 5 mg twice daily.troponins were negative on 3 draws. TSH 2.360. Repeat renal function reveals BUN of 20 creatinine 1.11. Blood sugar 178. WBC 15.4. Urinalysis showed trace leukoesterase, occasional bacteria. COVID-19 not detected. Blood culture no growth at 24 hours. Patient's breathing status is improved today from yesterday but continues to have wheezing. No change in Solu-Medrol. Patient states that the Restoril did not help her sleeping and asking for another medication to help. Ambien will be added for now. We will add in PT and OT for evaluation for possible subacute rehab. 11/17: This morning, patient has increasing wheezing and tightness. SoluMedrol will be increased to 60 mg every 6 hours and Pulmicort increased 1 mg twice daily. IV Lasix was transitioned to oral Lasix yesterday. Metoprolol has been increased to 50 mg twice daily by cardiology as her heart rate this morning was in the 120s and 130s. 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 Repeat blood work reveals WBC 17.7, hemoglobin 11.4. Blood sugars are running in the high 100s. Patient is eating between 50 and 100% of her meals. PT and OT have recommended subacute rehab. Discussed discharge planning with the patient and she becomes very anxious about option of subacute rehab. She reluctantly agrees to go to [facility]. We do not expect that she will be ready until Friday. Patient is hoping that she will be improved enough to go home but this is doubtful. project safety manager is following closely for discharge planning. 11/18: Patient states that his shortness of breath is a little better from yesterday. She denies any productive cough. She denies chest pain or pressure. She states she had a good night and Ambien seems to be helping with her sleep. Patient is complaining of feeling shaky most likely from steroids which will be decreased to 40 mg every 8 hours. She remains in atrial fibrillation rate controlled. Pulmonary started on Lasix oral 40 twice a day yesterday. Discussed smoking and patient states she is having some nicotine cravings but has used the patch in the past and broke out in a rash. She states she is doing okay right now. Again emphasized the need for smoking cessation. Patient is now on O2 at 5 L most likely will require home O2 nebulizer at the time of discharge. Patient may also need a walker. Discussed discharge planning and she states that her son and [id number] from [place] will come and stay with her. Patient has been afebrile, heart rate 70, blood pressure 139/89, pulse ox 96% on 5 L nasal cannula. WBC 14.5, hemoglobin 9.4, platelet count 260. Sodium 132, potassium 3.6, chloride 97, CO2 28, BUN 29 creatinine 1.16. Blood sugars run between 142 and 221. Anticipate discharge by Friday. Objective - Vital Signs Vital signs: Vital Signs Temp 97.9 F 11/18/19 20:00 Pulse 78 11/19/19 04:00 Resp 20 11/19/19 04:00 BP 139/89 11/19/19 04:00 Pulse Ox 96 11/19/19 04:00 Intake & Output 11/18/19 11/19/19 11/19/19 18:59 06:59 18:59 Intake Total 360 Balance 360 Weight 89.947 kg Intake: Oral 360 Other: Voiding Method Bedside Commode # Voids 1 # Bowel Movements 0 - Exam Review of Systems Constitutional: Reports fatigue, Reports weakness Eyes: denies blurred vision, denies bulging eye, denies decreased vision Ears, nose, mouth and throat: Denies dysphagia, Denies neck lump, Denies sore throat Cardiovascular: Denies chest pain, Reports decreased exercise tolerance, Reports dyspnea on exertion, Reports orthopnea, Denies rapid heart beat, Reports shortness of breath-improving Respiratory: Reports congestion, Reports cough, denies cough with sputum, Rep orts dyspnea, Reports wheezing Gastrointestinal: Denies abdominal pain, Denies bloating, Denies BRBPR, Denies heartburn, Denies melena, Denies nausea, Denies vomiting Genitourinary: Reports nocturia, Denies dysuria Menstruation: Reports postmenopausal Musculoskeletal: Denies myalgias Musculoskeletal: absent: ankle pain, ankle stiffness, ankle swelling, elbow pain, elbow stiffness, elbow swelling, foot pain, foot stiffness, foot swelling, hand pain, hand stiffness, hand swelling, hip pain, hip stiffness, hip swelling, knee pain, knee stiffness, knee swelling, shoulder pain, shoulder stiffness, shoulder swelling, wrist pain, wrist stiffness, wrist swelling Integumentary: Denies pruritus, Denies rash Neurological: Denies numbness, Denies weakness Psychiatric: Reports anxiety, reports insomnia, Reports depression, Reports sleep disturbances, Denies sadness/tearfulness, Denies suicidal ideation Endocrine: Denies fatigue, Denies weight change Physical examination: GEN: This is a 78-year-old female. She is resting in bed and appears to be in no acute distress. Patient is more relaxed today. HEENT: head is atraumatic normocephalic pupils were equal round reactive to light and accommodations, extra ocular muscle movements were intact. Neck: supple, no JVP. Chest: decrease breath sounds with few scattered expiratory wheezes, no intercostal retraction at rest. Heart: first heart sound is depressed, second heart sound is normal irregularly irregular, there is BEN 2/6 located at the left sternal border. Abdomen: soft non tender non distended positive bowel sounds. Extremities: there is no edema , no calf tenderness DP + 1 Bilaterally. Neurologic examination: patient is awake alert and oriented X3 CN II-XII are grossly intact , muscle power 4/5 in bilateral upper and lower extremities. - Labs CBC & Chem 7: 11/19/19 06:08 11/19/19 06:08 Labs: Abnormal Lab Results - Last 24 Hours (Table) 11/18/19 11/18/19 11/18/19 Range/Units 06:50 12:27 17:11 WBC 17.7 H (3.8-10.6) k/uL Neutrophils # 16.0 H (1.3-7.7) k/uL Lymphocytes # (1.0-4.8) k/uL Sodium (137-145) mmol/L Chloride (98-107) mmol/L BUN (7-17) mg/dL Creatinine (0.52-1.04) mg/dL Glucose (74-99) mg/dL POC Glucose (mg/dL) 154 H 221 H (75-99) mg/dL 11/18/19 11/19/19 11/19/19 Range/Units 20:44 06:08 06:08 WBC 14.5 H (3.8-10.6) k/uL Neutrophils # 13.2 H (1.3-7.7) k/uL Lymphocytes # 0.9 L (1.0-4.8) k/uL Sodium 132 L (137-145) mmol/L Chloride 97 L (98-107) mmol/L BUN 29 H (7-17) mg/dL Creatinine 1.16 H (0.52-1.04) mg/dL Glucose 151 H (74-99) mg/dL POC Glucose (mg/dL) 142 H (75-99) mg/dL 11/19/19 Range/Units 06:35 WBC (3.8-10.6) k/uL Neutrophils # (1.3-7.7) k/uL Lymphocytes # (1.0-4.8) k/uL Sodium (137-145) mmol/L Chloride (98-107) mmol/L BUN (7-17) mg/dL Creatinine (0.52-1.04) mg/dL Glucose (74-99) mg/dL POC Glucose (mg/dL) 164 H (75-99) mg/dL Microbiology - Last 24 Hours (Table) 11/16/19 10:11 Blood Culture - Preliminary Blood No Growth after 48 hours Assessment and Plan Plan: 1. Acute hypoxemic respiratory failure due to acute diastolic heart failure secondary to atrial flutter /fibrillation and COPD exacerbation. we will continue with O2 support , Solu-medrol decreased to 40 mg every 8 hours, Duoneb 3 ml neb QID and Pulmicort increased to 1 mg NEB bid, cardiology and pulmonary consult appreciated. 2. New onset atrial flutter/fibrillation. Eliquis 5 mg twice daily and Lopressor increased by cardiology to 50 mg twice daily. Echocardiogram as above. 3. Acute Diastolic heart failure. Continue Lopressor and Lasix 40 mg oral twice daily. 4. Acute COPD exacerbation. we will continue with O2 support, Duoneb 3 ml nebulization 4 times daily along with Pulmicort 1 mg nebulization bid, we will continue with Solu-Medrol 40 mg every 8 hours, pulmonary consult. 5. Hypertension and hypertensive cardiovascular disease. Continue Lopressor and amlodipine 2.5 mg po daily. 6. Hyperlipidemia. we will continue with low cholesterol diet. 7. Hypothyroidism. we will continue with Synthroid 50 mcg orally daily. 8. GERD with esophagitis. Protonix 40 mg orally daily. 9. Chronic tobacco use and dependence. Patient does not want nicotine patch, counseled about smoking cessation. 10. Insomnia. Continue Ambien at bedtime. 11. Generalized anxiety disorder. Patient started on Xanax 0.25 mg twice daily as needed. 12. DVT prophylaxis. Eliquis. 13. GI prophylaxis. we will continue with PPI. 14. COVID-19 infection not present. Full code. Discharge plan: Friday with help of son and [id number], home care. Patient most likely will require home oxygen, nebulizer and walker. Impression and plan of care have been directed as dictated by the signing physician. Varsha Rodarte nurse practitioner acting as scribe for signing physician.
[2019-11-19] MEDS: BUDESONIDE 1 MG/2 ML NEBU INHALATION SCH ×2 (08:12→20:08)
[2019-11-19] MEDS: FUROSEMIDE 40 MG TAB PO SCH ×2 (08:46→17:41)
[2019-11-19] MEDS: METOPROLOL TARTRATE 50 MG TAB PO SCH ×2 (08:46→19:46)
[2019-11-19] MEDS: VERAPAMIL 40 MG TAB PO SCH ×2 (08:46→19:46)
[2019-11-19] MEDS: APIXABAN 5 MG TAB PO SCH ×2 (08:47→19:46)
--- NOTE | 2019-11-19 11:52 | P.PN ---
Subjective Progress Note Date: 11/19/19 Principal diagnosis: Shortness of breath and weakness 78-year-old white female patient of , with past medical history of COPD, chronic congestive heart failure, hypertension, coronary artery disease with previous PCI and stenting, GERD, who presented to the emergency department on 11/16/2019 with complaints of shortness of breath, orthopnea, and generalized weakness. Her shortness of breath was also exacerbated by any exertion, including walking. She denied any chest pain, denied any fever or chills. She is a chronic smoker, still smoking a pack a day. Her home maintenance inhalers include Symbicort, and albuterol. Patient is not on oxygen at baseline. Chest x-ray on admission showed prominence and central vascularity and interstitium, no pneumothorax or pleural effusions, increased bibasilar density. Lab work showed a white blood cell count of 10.9 hemoglobin of 12.2, INR is 1.3, serum sodium is 133, the rest of the electrolytes and renal profile were unremarkable, plasma lactic acid was 1.2, LFTs were within normal limits, troponins were less than 0.0123, proBNP was elevated at 3010, TSH was within normal limits at 2.36. EKG was obtained in the emergency department showing A. fib flutter, with frequent PVCs. Her previous echocardiogram from May 2018 showed EF of 55- 60%, left ventricular wall thickness was within normal limits, no aortic stenosis or regurgitation, mild mitral regurgitation, trace tricuspid regurgitation, no evidence of pulmonary hypertension with right-sided pressures of 12.5 mmHg. patient was started on IV diuretics in the emergency department, she was started on IV heparin, and Cardizem infusion which is not currently running, she was placed on BiPAP support initially, she is currently on nasal cannula, at 4 L/m, her pulse ox is 94%, she is diuresing. She is getting up to the commode, her shortness of breath has improved, she has a bibasilar crackles on physical exam, and some limited wheezing. On 11/17/2019 patient seen in follow-up on selective care unit. Patient continues on IV Lasix, she is diuresing, she is -1.3 L fluid balance over the last 24 hours, breathing easier, no crackles on today's exam, patient does however still has some scattered wheezing. Complaints of chest pain, she continues on IV Solu-Medrol, IV Lasix, today's labs have been reviewed, showing white blood cell count of 15.4, hemoglobin of 12.1, sodium is 134, potassium is 4.5, B1 is 20, and creatinine is 1.1. Her troponins have been negative 3, her chest x-ray shows persistent but improving right lower lobe infiltrate. The echocardiogram showed mild LVH, EF between 55-60%, moderate mitral regurg, mild to moderate tricuspid regurg, and moderate to severe pulmonary hypertension and inferior vena cava dilated with no significant inspiratory collapse and right atrial pressure of greater than 20 mmHg. No significant lower extremity edema. She remains on Cardizem infusion at 5 mg per hour. Heart rate is currently controlled, in the 80s and 90s BPM, atrial fib flutter On 11/18/2019 patient seen in follow-up on selective care unit, he is awake and alert, on 5 L of oxygen her pulse ox is 95%, she is afebrile, she remains in atrial fibrillation, with a rate of 112 BPM, still has exertional dyspnea, and still bronchospastic, although somewhat improved, mild pretibial edema, patient has been diuresed, patient has been transitioned to oral Lasix of 40 mg twice daily, she is on oral intake regulation of Eliquis, she is on IV steroids and nebulized bronchodilators. Patient is seen today 11/19/2019 in follow-up on the selective care unit. She is currently awake and alert. Breathing easier today compared to yesterday. She is maintaining O2 saturations in the mid 90s on 5 L/m per nasal cannula. She's afebrile. Blood culture reveals no growth. White count 14.5. Hemoglobin 11.4. Sodium 132. Potassium 3.6. Creatinine 1.16. She is continued on DuoNeb inhalations, Pulmicort and Perforomist inhalations, IV Solu-Medrol. Anticoagulated with Eliquis. Remains on oral diuretics. Heart rate is better controlled. Objective - Vital Signs Vital signs: Vital Signs Temp 97.7 F 11/19/19 08:00 Pulse 100 11/19/19 11:27 Resp 20 11/19/19 08:00 BP 149/68 11/19/19 08:00 Pulse Ox 96 11/19/19 08:00 Intake & Output 11/18/19 11/19/19 11/19/19 18:59 06:59 18:59 Intake Total 360 240 Balance 360 240 Weight 89.947 kg Intake: Oral 360 240 Other: Voiding Method Bedside Commode # Voids 1 # Bowel Movements 0 - Exam GENERAL EXAM: Alert, very pleasant, 78-year-old female patient, on 5 L of oxygen and the pulse ox of 96%, comfortable in no apparent distress. HEAD: Normocephalic/atraumatic. EYES: Normal reaction of pupils, equal size. Conjunctiva pink, sclera white. NOSE: Clear with pink turbinates. THROAT: No erythema or exudates. NECK: No masses, no JVD, no thyroid enlargement, no adenopathy. CHEST: No chest wall deformity. Symmetrical expansion. LUNGS: Equal air entry with expiratory wheezing. CVS: Irregular rate and rhythm, normal S1 and S2, no gallops, no murmurs, no rubs ABDOMEN: Soft, nontender. No hepatosplenomegaly, normal bowel sounds, no guarding or rigidity. EXTREMITIES: No clubbing, no edema, no cyanosis, 2+ pulses and upper and lower extremities. MUSCULOSKELETAL: Muscle strength and tone normal. SPINE: No scoliosis or deformity SKIN: No rashes CENTRAL NERVOUS SYSTEM: No focal deficits, tone is normal in all 4 extremities. PSYCHIATRIC: Alert and oriented -3. Appropriate affect. Intact judgment and i nsight. - Labs CBC & Chem 7: 11/19/19 06:08 11/19/19 06:08 Labs: Abnormal Lab Results - Last 24 Hours (Table) 11/18/19 11/18/19 11/18/19 Range/Units 12:27 17:11 20:44 WBC (3.8-10.6) k/uL Neutrophils # (1.3-7.7) k/uL Lymphocytes # (1.0-4.8) k/uL Sodium (137-145) mmol/L Chloride (98-107) mmol/L BUN (7-17) mg/dL Creatinine (0.52-1.04) mg/dL Glucose (74-99) mg/dL POC Glucose (mg/dL) 154 H 221 H 142 H (75-99) mg/dL 11/19/19 11/19/19 11/19/19 Range/Units 06:08 06:08 06:35 WBC 14.5 H (3.8-10.6) k/uL Neutrophils # 13.2 H (1.3-7.7) k/uL Lymphocytes # 0.9 L (1.0-4.8) k/uL Sodium 132 L (137-145) mmol/L Chloride 97 L (98-107) mmol/L BUN 29 H (7-17) mg/dL Creatinine 1.16 H (0.52-1.04) mg/dL Glucose 151 H (74-99) mg/dL POC Glucose (mg/dL) 164 H (75-99) mg/dL Microbiology - Last 24 Hours (Table) 11/16/19 10:11 Blood Culture - Preliminary Blood No Growth after 48 hours Assessment and Plan Assessment: #1. Acute exacerbation of chronic congestive heart failure, with previously documented diastolic dysfunction, repeat echocardiogram showed mild LVH, EF 55- 60% #2. Mild exacerbation of chronic obstructive pulmonary disease, not oxygen dependent at baseline #3. Acute hypoxic respiratory failure related to acute exacerbation of diastolic CHF and COPD, did require brief BiPAP support, remains on supplemental oxygen #4. Hypertension #5. Coronary artery disease with previous history of stenting #6. GERD/reflux #7. Chronic and ongoing history of smoking, still smoking a pack a day #8. Hypothyroidism, on thyroid replacement therapy #9. Severe pulmonary hypertension, with right-sided pressure of 64.7 mmHg, and mild to moderate tricuspid regurgitation, moderate mitral regurgitation Plan: The patient was seen and evaluated by Dr. Avendaño She is improved today Discontinue IV Solu-Medrol and initiate a prednisone taper Titrate down the FiO2 as tolerated Probable discharge in the a.m. We'll continue to follow I, the cosigning physician, performed a history & physical examination of the patient. Lungs sounds with bilateral end expiratory wheeze, diminished. Maint aining good O2 saturations in the 90s on 5 L/m per nasal cannula. I discussed the assessment and plan of care with my nurse practitioner, Lisa Marrufo. I attest to the above note as dictated by her.
[2019-11-19 12:02] LABS: Glucose,Whole Blood 147 mg/dL (75-99)
--- NOTE | 2019-11-19 15:35 | PN ---
PROGRESS NOTE This lady has persistent atrial fibrillation with moderate ventricular rate, exacerbation of COPD, on steroids and antibiotics. She also had PVCs. I performed an EKG today that revealed atrial fibrillation, moderate ventricular rate, PVCs isolated. I am going to increase the beta selene metoprolol to 50 mg b.i.d. and add verapamil 40 mg b.i.d. JVD is evident. S1, S2 heard normally. Irregular rhythm noted. Short systolic murmur noted. Lungs reveal scattered rhonchi. Abdomen and lower extremity exam unchanged. We will continue the bronchodilators, antibiotics, increase the beta selene and also add verapamil for rate control. Prognosis remains guarded. Advised to quit smoking. MMODL / IJN: [id number] /
[2019-11-19] MEDS ORDERED: methylPREDNISolone SOD SUCCI 40 MG/ML 1 ML VIAL IV SCH (16:00)
[2019-11-19 16:53] LABS: Glucose,Whole Blood 169 mg/dL (75-99)
[2019-11-19 19:40] LABS: Glucose,Whole Blood 147 mg/dL (75-99)
[2019-11-19] MEDS: amLODIPine 2.5 MG TAB PO SCH (19:46)
[2019-11-20] MEDS: IPRATROPIUM-ALBUTEROL 3 ML NEB INHALATION SCH ×7 (00:26→23:38)
[2019-11-20] MEDS ORDERED: NITROGLYCERIN SL TABS 0.4 MG TAB SUBLINGUAL ONE (03:31)
[2019-11-20] MEDS ORDERED: NITROGLYCERIN SL TABS 0.4 MG TAB SUBLINGUAL STA (03:33)
[2019-11-20] MEDS: ALPRAZolam 0.25 MG TAB PO PRN ×2 (03:48→11:33)
[2019-11-20] MEDS: ACETAMINOPHEN TAB 325 MG TAB PO PRN (06:09)
[2019-11-20] MEDS: LEVOTHYROXINE 50 MCG TAB PO SCH (06:10)
[2019-11-20] MEDS: PANTOPRAZOLE 40 MG TABLET PO SCH ×2 (06:11→17:33)
[2019-11-20 06:21] LABS: Glucose,Whole Blood 99 mg/dL (75-99)
[2019-11-20] MEDS: INSULIN ASPART (NovoLOG) 100 UNIT/ML VIAL SQ SCH ×4 (06:32→20:34)
--- NOTE | 2019-11-20 07:05 | XR ---
EXAMINATION TYPE: XR chest 1V portable DATE OF EXAM: 11/20/2019 HISTORY: dyspnea. REFERENCE: Previous study dated 11/17/2019. FINDINGS: The lungs are overinflated. Heart is enlarged. There has developed right lower lobe airspac e disease. There is a small left effusion. IMPRESSION: 1. COPD. 2. MILD CARDIOMEGALY. 3. RIGHT LOWER LOBE AIRSPACE DISEASE WITH A CONCOMITANT EFFUSION.
[2019-11-20 07:18] LABS: Magnesium 1.9 mg/dL (1.6-2.3); Potassium 2.9 mmol/L (3.5-5.1)
[2019-11-20] MEDS: BUDESONIDE 1 MG/2 ML NEBU INHALATION SCH ×2 (07:53→19:31)
[2019-11-20] MEDS: POTASSIUM CHLORIDE ER 20 MEQ TAB.ER PO SCH ×3 (10:02→12:37)
[2019-11-20] MEDS: APIXABAN 5 MG TAB PO SCH ×2 (10:02→20:14)
[2019-11-20] MEDS: VERAPAMIL 40 MG TAB PO SCH ×2 (10:03→20:14)
[2019-11-20] MEDS: METOPROLOL TARTRATE 50 MG TAB PO SCH ×2 (10:03→20:14)
[2019-11-20] MEDS: FUROSEMIDE 40 MG TAB PO SCH (10:03)
[2019-11-20] MEDS: predniSONE 20 MG TAB PO SCH (10:03)
[2019-11-20 11:40] LABS: Glucose,Whole Blood 117 mg/dL (75-99)
--- NOTE | 2019-11-20 11:52 | P.PN ---
Subjective Progress Note Date: 11/20/19 This is a 78 year old female with a previous medical history significant for hypertension and hypertensive cardiovascular disease, hyperlipidemia, chronic tobacco use and dependence with COPD, GERD and insomnia, patient developed to have increased shortness of breath about a week ago with significant orthopnea and PND, she finally decided to call EMS yesterday and she was brought into the ER at [facility] whee she was found to have a new onset atrial flutter with variable response and CXR showed CHF along with COPD initially she was placed on BIPAP then she was switches to nasal canula, she was admitted to the hospital after starting her on heparin drip and cardizem drip along with pulmonary and cardiology consult. 11/16: Echocardiogram reveals EF of 55-60%, LA severely dilated greater than 40 ml/m2, moderate mitral regurgitation, mild to moderate tricuspid regurgitation, moderate to severe pulmonary hypertension. Repeat chest x-ray reveals persistent but improving right lower lobe infiltrate. Patient has been seen by Dr. Avendaño and steroids were added have 40 mg every 8 hours IV. Patient has been seen by cardiology and Cardizem drip was discontinued. Patient was started on Lopressor 25 mg 3 times daily and eliquis 5 mg twice daily.troponins were negative on 3 draws. TSH 2.360. Repeat renal function reveals BUN of 20 creatinine 1.11. Blood sugar 178. WBC 15.4. Urinalysis showed trace leukoesterase, occasional bacteria. COVID-19 not detected. Blood culture no growth at 24 hours. Patient's breathing status is improved today from yesterday but continues to have wheezing. No change in Solu-Medrol. Patient states that the Restoril did not help her sleeping and asking for another medication to help. Ambien will be added for now. We will add in PT and OT for evaluation for possible subacute rehab. 11/17: This morning, patient has increasing wheezing and tightness. SoluMedrol will be increased to 60 mg every 6 hours and Pulmicort increased 1 mg twice daily. IV Lasix was transitioned to oral Lasix yesterday. Metoprolol has been increased to 50 mg twice daily by cardiology as her heart rate this morning was in the 120s and 130s. child caregiver private home has been atrial fibrillation. Repeat blood work reveals WBC 17.7, hemoglobin 11.4. Blood sugars are running in the high 100s. Patient is eating between 50 and 100% of her meals. PT and OT have recommended subacute rehab. Discussed discharge planning with the patient and she becomes very anxious about option of subacute rehab. She reluctantly agrees to go to [facility]. We do not expect that she will be ready until Friday. Patient is hoping that she will be improved enough to go home but this is doubtful. farm general manager is following closely for discharge planning. 11/18: Patient states that his shortness of breath is a little better from yesterday. She denies any productive cough. She denies chest pain or pressure. She states she had a good night and Ambien seems to be helping with her sleep. Patient is complaining of feeling shaky most likely from steroids which will be decreased to 40 mg every 8 hours. She remains in atrial fibrillation rate controlled. Pulmonary started on Lasix oral 40 twice a day yesterday. Discussed smoking and patient states she is having some nicotine cravings but has used the patch in the past and broke out in a rash. She states she is doing okay right now. Again emphasized the need for smoking cessation. Patient is now on O2 at 5 L most likely will require home O2 nebulizer at the time of discharge. Patient may also need a walker. Discussed discharge planning and she states that her son and [id number] from [place] will come and stay with her. Patient has been afebrile, heart rate 70, blood pressure 139/89, pulse ox 96% on 5 L nasal cannula. WBC 14.5, hemoglobin 9.4, platelet count 260. Sodium 132, potassium 3.6, chloride 97, CO2 28, BUN 29 creatinine 1.16. Blood sugars run between 142 and 221. Anticipate discharge by Friday. 11/19: Patient is sitting up in bed feeling a bit better today her oxygen requirement is about failure and is a cannula she denies any chest pain that she continues to have some shortness breath, she had an episode of the A. fib with RVR yesterday she is maintained on metoprolol 50 minute gram orally twice every day, Eliquis 5 mg orally twice every day and added verapamil 40 mg orally twice every day yesterday, patient will likely stay in hospital for another 24 hours then she can be discharged home with home PT as her son is driving from [place] to see stay with her. Objective - Vital Signs Vital signs: Vital Signs Temp 97.6 F 11/20/19 11:30 Pulse 104 H 11/20/19 11:30 Resp 26 H 11/20/19 11:30 BP 154/88 11/20/19 11:30 Pulse Ox 97 11/20/19 11:30 Intake & Output 11/19/19 11/20/19 11/20/19 18:59 06:59 18:59 Intake Total 360 960 Output Total 300 Balance 360 660 Weight 91.5 kg Intake: Oral 360 960 Output: Urine 300 Other: Voiding Method Bedside Commode - Exam - Exam Review of Systems Constitutional: Reports fatigue, Reports weakness Eyes: denies blurred vision, denies bulging eye, denies decreased vision Ears, nose, mouth and throat: Denies dysphagia, Denies neck lump, Denies sore throat Cardiovascular: Denies chest pain, Reports decreased exercise tolerance, Reports dyspnea on exertion, Reports orthopnea, Denies rapid heart beat, Reports shortness of breath-improving Respiratory: Reports congestion, Reports cough, denies cough with sputum, Reports dyspnea, Reports wheezing Gastrointestinal: Denies abdominal pain, Denies bloating, Denies BRBPR, Denies heartburn, Denies melena, Denies nausea, Denies vomiting Genitourinary: Reports nocturia, Denies dysuria Menstruation: Reports postmenopausal Musculoskeletal: Denies myalgias Musculoskeletal: absent: ankle pain, ankle stiffness, ankle swelling, elbow pain, elbow stiffness, elbow swelling, foot pain, foot stiffness, foot swelling, hand pain, hand stiffness, hand swelling, hip pain, hip stiffness, hip swelling, knee pain, knee stiffness, knee swelling, shoulder pain, shoulder stiffness, shoulder swelling, wrist pain, wrist stiffness, wrist swelling Integumentary: Denies pruritus, Denies rash Neurological: Denies numbness, Denies weakness Psychiatric: Reports anxiety, reports insomnia, Reports depression, Reports sleep disturbances, Denies sadness/tearfulness, Denies suicidal ideation Endocrine: Denies fatigue, Denies weight change Physical examination: GEN: This is a 78-year-old female. She is resting in bed and appears to be in no acute distress. Patient is more relaxed today. HEENT: head is atraumatic normocephalic pupils were equal round reactive to light and accommodations, extra ocular muscle movements were intact. Neck: supple, no JVP. Chest: decrease breath sounds with few scattered expiratory wheezes, no intercostal retraction at rest. Heart: first heart sound is depressed, second heart sound is normal irregularly irregular, there is BEN 2/6 located at the left sternal border. Abdomen: soft non tender non distended positive bowel sounds. Extremities: there is no edema , no calf tenderness DP + 1 Bilaterally. Neurologic examination: patient is awake alert and oriented X3 CN II-XII are grossly intact , muscle power 4/5 in bilateral upper and lower extremities. - Labs CBC & Chem 7: 11/19/19 06:08 11/20/19 06:36 Labs: Abnormal Lab Results - Last 24 Hours (Table) 11/19/19 11/19/19 11/19/19 Range/Units 12:01 16:52 19:39 Sodium (137-145) mmol/L Potassium (3.5-5.1) mmol/L Chloride (98-107) mmol/L Carbon Dioxide (22-30) mmol/L BUN (7-17) mg/dL Creatinine (0.52-1.04) mg/dL POC Glucose (mg/dL) 147 H 169 H 147 H (75-99) mg/dL 11/20/19 11/20/19 Range/Units 06:36 11:38 Sodium 132 L (137-145) mmol/L Potassium 2.9 L (3.5-5.1) mmol/L Chloride 92 L (98-107) mmol/L Carbon Dioxide 31 H (22-30) mmol/L BUN 33 H (7-17) mg/dL Creatinine 1.23 H (0.52-1.04) mg/dL POC Glucose (mg/dL) 117 H (75-99) mg/dL Microbiology - Last 24 Hours (Table) 11/16/19 10:11 Blood Culture - Preliminary Blood No Growth after 72 hours Assessment and Plan Assessment: Assessment and Plan Plan: 1. Acute hypoxemic respiratory failure due to acute diastolic heart failure secondary to atrial flutter /fibrillation and COPD exacerbation. Oxygen is down to 3 L a candidate, patient was switched to oral prednisone 40 mg orally once every day, she will be maintained on DuoNeb the 3 mg nebulization 4 times every day, as well as Pulmicort 1 mg nebulization twice every day, patient is to be maintained on the Eliquis 5 mg orally twice every day, metoprolol 50 mg twice every day and added verapamil 40 mg twice every day 2. New onset atrial flutter/fibrillation. Heart rate is better continue verapam il 40 mg twice every day, metoprolol 50 mg orally twice every day, continue Eliquis 5 mg orally twice every day. 3. Acute Diastolic heart failure. Continue Lopressor and Lasix 40 mg oral twice daily. 4. Acute COPD exacerbation. we will continue with O2 support, Duoneb 3 ml nebulization 4 times daily along with Pulmicort 1 mg nebulization bid, her oxygen is down to 3 L nasal cannula, most likely will require home oxygen. 5. Hypertension and hypertensive cardiovascular disease. Continue metoprolol 50 mg orally twice every day and verapamil 40 mg twice every day. 6. Hyperlipidemia. we will continue with low cholesterol diet. 7. Hypothyroidism. we will continue with Synthroid 50 mcg orally daily. 8. GERD with esophagitis. Protonix 40 mg orally daily. 9. Chronic tobacco use and dependence. Patient does not want nicotine patch, counseled about smoking cessation. 10. Insomnia. Continue Ambien 5 mg at bedtime as needed. 11. Generalized anxiety disorder. Patient started on Xanax 0.25 mg twice daily as needed. 12. DVT prophylaxis. Eliquis 5 mg orally twice every day. 13. GI prophylaxis. we will continue with PPI. 14. COVID-19 infection not present. 15. Full code. Discharge plan: Friday with help of son and [id number], home care. Patient most likely will require home oxygen, nebulizer and walker.
--- NOTE | 2019-11-20 14:16 | P.PN ---
Subjective Progress Note Date: 11/20/19 Principal diagnosis: Shortness of breath and weakness 78-year-old white female patient of , with past medical history of COPD, chronic congestive heart failure, hypertension, coronary artery disease with previous PCI and stenting, GERD, who presented to the emergency department on 11/16/2019 with complaints of shortness of breath, orthopnea, and generalized weakness. Her shortness of breath was also exacerbated by any exertion, including walking. She denied any chest pain, denied any fever or chills. She is a chronic smoker, still smoking a pack a day. Her home maintenance inhalers include Symbicort, and albuterol. Patient is not on oxygen at baseline. Chest x-ray on admission showed prominence and central vascularity and interstitium, no pneumothorax or pleural effusions, increased bibasilar density. Lab work showed a white blood cell count of 10.9 hemoglobin of 12.2, INR is 1.3, serum sodium is 133, the rest of the electrolytes and renal profile were unremarkable, plasma lactic acid was 1.2, LFTs were within normal limits, troponins were less than 0.0123, proBNP was elevated at 3010, TSH was within normal limits at 2.36. EKG was obtained in the emergency department showing A. fib flutter, with frequent PVCs. Her previous echocardiogram from May 2018 showed EF of 55- 60%, left ventricular wall thickness was within normal limits, no aortic stenosis or regurgitation, mild mitral regurgitation, trace tricuspid regurgitation, no evidence of pulmonary hypertension with right-sided pressures of 12.5 mmHg. patient was started on IV diuretics in the emergency department, she was started on IV heparin, and Cardizem infusion which is not currently running, she was placed on BiPAP support initially, she is currently on nasal cannula, at 4 L/m, her pulse ox is 94%, she is diuresing. She is getting up to the commode, her shortness of breath has improved, she has a bibasilar crackles on physical exam, and some limited wheezing. On 11/17/2019 patient seen in follow-up on selective care unit. Patient continues on IV Lasix, she is diuresing, she is -1.3 L fluid balance over the last 24 hours, breathing easier, no crackles on today's exam, patient does however still has some scattered wheezing. Complaints of chest pain, she continues on IV Solu-Medrol, IV Lasix, today's labs have been reviewed, showing white blood cell count of 15.4, hemoglobin of 12.1, sodium is 134, potassium is 4.5, B1 is 20, and creatinine is 1.1. Her troponins have been negative 3, her chest x-ray shows persistent but improving right lower lobe infiltrate. The echocardiogram showed mild LVH, EF between 55-60%, moderate mitral regurg, mild to moderate tricuspid regurg, and moderate to severe pulmonary hypertension and inferior vena cava dilated with no significant inspiratory collapse and right atrial pressure of greater than 20 mmHg. No significant lower extremity edema. She remains on Cardizem infusion at 5 mg per hour. Heart rate is currently controlled, in the 80s and 90s BPM, atrial fib flutter On 11/18/2019 patient seen in follow-up on selective care unit, he is awake and alert, on 5 L of oxygen her pulse ox is 95%, she is afebrile, she remains in atrial fibrillation, with a rate of 112 BPM, still has exertional dyspnea, and still bronchospastic, although somewhat improved, mild pretibial edema, patient has been diuresed, patient has been transitioned to oral Lasix of 40 mg twice daily, she is on oral intake regulation of Eliquis, she is on IV steroids and nebulized bronchodilators. Patient is seen today 11/19/2019 in follow-up on the selective care unit. She is currently awake and alert. Breathing easier today compared to yesterday. She is maintaining O2 saturations in the mid 90s on 5 L/m per nasal cannula. She's afebrile. Blood culture reveals no growth. White count 14.5. Hemoglobin 11.4. Sodium 132. Potassium 3.6. Creatinine 1.16. She is continued on DuoNeb inhalations, Pulmicort and Perforomist inhalations, IV Solu-Medrol. Anticoagulated with Eliquis. Remains on oral diuretics. Heart rate is better controlled. Maintaining O2 saturation in the mid 90s on 3 L/m per nasal cannula. Afebrile. Slightly tachycardic. Tachypneic. Blood cultures reveal no growth to date. Sodium 132. Potassium 2.9. Chloride 92. Bicarb 31. Creatinine 1.23. She remains on DuoNeb inhalations, Pulmicort inhalations, prednisone. Oral diuretics. Anticoagulated with Eliquis. Objective - Vital Signs Vital signs: Vital Signs Temp 97.6 F 11/20/19 11:30 Pulse 104 H 11/20/19 11:30 Resp 28 H 11/20/19 12:00 BP 154/88 11/20/19 11:30 Pulse Ox 97 11/20/19 11:30 Intake & Output 11/19/19 11/20/19 11/20/19 18:59 06:59 18:59 Intake Total 360 960 Output Total 300 Balance 360 660 Weight 91.5 kg Intake: Oral 360 960 Output: Urine 300 Other: Voiding Method Bedside Commode - Exam GENERAL EXAM: Alert, very pleasant, 78-year-old female patient, on 3 L of oxygen and the pulse ox of 97%, comfortable in no apparent distress. HEAD: Normocephalic/atraumatic. EYES: Normal reaction of pupils, equal size. Conjunctiva pink, sclera white. NOSE: Clear with pink turbinates. THROAT: No erythema or exudates. NECK: No masses, no JVD, no thyroid enlargement, no adenopathy. CHEST: No chest wall deformity. Symmetrical expansion. LUNGS: Equal air entry with expiratory wheezing. CVS: Irregular rate and rhythm, normal S1 and S2, no gallops, no murmurs, no rubs ABDOMEN: Soft, nontender. No hepatosplenomegaly, normal bowel sounds, no guarding or rigidity. EXTREMITIES: No clubbing, no edema, no cyanosis, 2+ pulses and upper and lower extremities. MUSCULOSKELETAL: Muscle strength and tone normal. SPINE: No scoliosis or deformity SKIN: No rashes CENTRAL NERVOUS SYSTEM: No focal deficits, tone is normal in all 4 extremities. PSYCHIATRIC: Alert and oriented -3. Appropriate affect. Intact judgment and insight. - Labs CBC & Chem 7: 11/19/19 06:08 11/20/19 06:36 Labs: Abnormal Lab Results - Last 24 Hours (Table) 11/19/19 11/19/19 11/20/19 Range/Units 16:52 19:39 06:36 Sodium 132 L (137-145) mmol/L Potassium 2.9 L (3.5-5.1) mmol/L Chloride 92 L (98-107) mmol/L Carbon Dioxide 31 H (22-30) mmol/L BUN 33 H (7-17) mg/dL Creatinine 1.23 H (0.52-1.04) mg/dL POC Glucose (mg/dL) 169 H 147 H (75-99) mg/dL 11/20/19 Range/Units 11:38 Sodium (137-145) mmol/L Potassium (3.5-5.1) mmol/L Chloride (98-107) mmol/L Carbon Dioxide (22-30) mmol/L BUN (7-17) mg/dL Creatinine (0.52-1.04) mg/dL POC Glucose (mg/dL) 117 H (75-99) mg/dL Microbiology - Last 24 Hours (Table) 11/16/19 10:11 Blood Culture - Preliminary Blood No Growth after 96 hours Assessment and Plan Assessment: #1. Acute exacerbation of chronic congestive heart failure, with previously documented diastolic dysfunction, repeat echocardiogram showed mild LVH, EF 55- 60% #2. Mild exacerbation of chronic obstructive pulmonary disease, not oxygen dependent at baseline #3. Acute hypoxic respiratory failure related to acute exacerbation of diastolic CHF and COPD, did require brief BiPAP support, remains on supplemental oxygen #4. Hypertension #5. Coronary artery disease with previous history of stenting #6. GERD/reflux #7. Chronic and ongoing history of smoking, still smoking a pack a day #8. Hypothyroidism, on thyroid replacement therapy #9. Severe pulmonary hypertension, with right-sided pressure of 64.7 mmHg, and mild to moderate tricuspid regurgitation, moderate mitral regurgitation Plan: The patient was seen and evaluated by Dr. Avendaño Titrate down the FiO2 as tolerated Increase her activity as tolerated We'll continue to follow I, the cosigning physician, performed a history & physical examination of the patient. Lungs sounds with bilateral end expiratory wheeze, diminished. M aintaining good O2 saturations in the 90s on 3 L/m per nasal cannula. I discussed the assessment and plan of care with my nurse practitioner, Lisa Marrufo. I attest to the above note as dictated by her.
--- NOTE | 2019-11-20 16:03 | PN ---
PROGRESS NOTE Mrs. Montes had significant hypokalemia and PVCs. Her breathing is somewhat better although last night she had an episode of exacerbation of her wheezing and shortness of breath. This lady has CAD, remote history of stenting, has what seems to be a fairly well preserved left ventricular systolic function by echocardiogram. Most of her issues appear to be related to COPD with exacerbation and PVCs and atrial fibrillation. Atrial fibrillation is new. Rate control is fairly decent. I am recommending that we increase the beta selene and supplement potassium and decrease oral Lasix to 40 mg in the morning and 20 mg in the afternoon. Prognosis remains guarded. Blood pressure is 120/70, pulse rate is about 90, irregular. JVD 1 cm. No carotid bruit. S1-S2 heard normally. Short systolic murmur noted. Irregular rhythm noted. Lungs reveal scattered rhonchi, diminished air entry. Abdomen is soft. Lower extremities reveal diminished pulses. RECOMMENDATIONS: We will supplement potassium, decrease oral Lasix, continue beta blockers and see how she does. MMODL / IJN: [id number] /
[2019-11-20 16:45] LABS: Glucose,Whole Blood 237 mg/dL (75-99)
[2019-11-20] MEDS: amLODIPine 2.5 MG TAB PO SCH (20:14)
[2019-11-20] MEDS: NYSTATIN 100,000 UNIT/ML SUSP 500,000 UNIT/5 ML CUP PO SCH (20:14)
[2019-11-20 20:33] LABS: Glucose,Whole Blood 145 mg/dL (75-99)
[2019-11-20] MEDS: ZOLPIDEM 5 MG TAB PO PRN (23:47)
[2019-11-21] MEDS: IPRATROPIUM-ALBUTEROL 3 ML NEB INHALATION SCH ×6 (03:34→23:58)
[2019-11-21 06:11] LABS: Glucose,Whole Blood 109 mg/dL (75-99)
[2019-11-21] MEDS: INSULIN ASPART (NovoLOG) 100 UNIT/ML VIAL SQ SCH ×4 (06:17→20:57)
[2019-11-21] MEDS: PANTOPRAZOLE 40 MG TABLET PO SCH ×2 (06:21→17:08)
[2019-11-21] MEDS: LEVOTHYROXINE 50 MCG TAB PO SCH (06:21)
[2019-11-21] MEDS: BUDESONIDE 1 MG/2 ML NEBU INHALATION SCH ×2 (07:49→19:51)
[2019-11-21 08:46] LABS: Basophils % (A) 0 %; Eosinophils # (A) 0.1 k/uL (0-0.7); Eosinophils % (A) 1 %; HCT 38.2 % (34.0-46.0); HGB 11.8 gm/dL (11.4-16.0); Hypochromasia Slight; Lymphocytes # (A) 3.2 k/uL (1.0-4.8); Lymphocytes % (A) 26 %; MCH 26.9 pg (25.0-35.0); MCHC 30.9 g/dL (31.0-37.0); MCV 87.1 fL (80.0-100.0); Mean Platelet Volume 7.3; Monocytes # (A) 0.8 k/uL (0-1.0); Monocytes % (A) 6 %; Neutrophils # (A) 8.2 k/uL (1.3-7.7); Neutrophils % (A) 65 %; Platelet Count 258 k/uL (150-450); RBC 4.39 m/uL (3.80-5.40); RDW 14.2 % (11.5-15.5); WBC 12.7 k/uL (3.8-10.6)
[2019-11-21 08:57] LABS: Calcium 8.6 mg/dL (8.4-10.2); Potassium 3.3 mmol/L (3.5-5.1)
[2019-11-21] MEDS ORDERED: MAG HYDROX/AL HYDROX/SIMETH 30 ML, HYOSCYAMINE ELIXIR 10 ML, LIDOCAINE VISCOUS 2% 10 ML PO ONE ×3 (09:14)
[2019-11-21] MEDS: FUROSEMIDE 40 MG TAB PO SCH (09:15)
[2019-11-21] MEDS: predniSONE 20 MG TAB PO SCH (09:15)
[2019-11-21] MEDS: METOPROLOL TARTRATE 50 MG TAB PO SCH ×3 (09:16→22:55)
[2019-11-21] MEDS: VERAPAMIL 80 MG TAB PO SCH ×2 (09:16→20:11)
[2019-11-21] MEDS: ALPRAZolam 0.25 MG TAB PO PRN ×2 (09:16→20:11)
[2019-11-21] MEDS: APIXABAN 5 MG TAB PO SCH ×2 (09:16→20:11)
[2019-11-21] MEDS: NYSTATIN 100,000 UNIT/ML SUSP 500,000 UNIT/5 ML CUP PO SCH ×4 (09:21→22:52)
[2019-11-21 11:18] LABS: Glucose,Whole Blood 126 mg/dL (75-99)
[2019-11-21] MEDS ORDERED: POTASSIUM CHLORIDE ER 20 MEQ TAB.ER PO STA (11:21)
--- NOTE | 2019-11-21 11:24 | P.PN ---
Subjective Progress Note Date: 11/21/19 This is a 78 year old female with a previous medical history significant for hypertension and hypertensive cardiovascular disease, hyperlipidemia, chronic tobacco use and dependence with COPD, GERD and insomnia, patient developed to have increased shortness of breath about a week ago with significant orthopnea and PND, she finally decided to call EMS yesterday and she was brought into the ER at [facility] whee she was found to have a new onset atrial flutter with variable response and CXR showed CHF along with COPD initially she was placed on BIPAP then she was switches to nasal canula, she was admitted to the hospital after starting her on heparin drip and cardizem drip along with pulmonary and cardiology consult. 11/16: Echocardiogram reveals EF of 55-60%, LA severely dilated greater than 40 ml/m2, moderate mitral regurgitation, mild to moderate tricuspid regurgitation, moderate to severe pulmonary hypertension. Repeat chest x-ray reveals persistent but improving right lower lobe infiltrate. Patient has been seen by Dr. Avendaño and steroids were added have 40 mg every 8 hours IV. Patient has been seen by cardiology and Cardizem drip was discontinued. Patient was started on Lopressor 25 mg 3 times daily and eliquis 5 mg twice daily.troponins were negative on 3 draws. TSH 2.360. Repeat renal function reveals BUN of 20 creatinine 1.11. Blood sugar 178. WBC 15.4. Urinalysis showed trace leukoesterase, occasional bacteria. COVID-19 not detected. Blood culture no growth at 24 hours. Patient's breathing status is improved today from yesterday but continues to have wheezing. No change in Solu-Medrol. Patient states that the Restoril did not help her sleeping and asking for another medication to help. Ambien will be added for now. We will add in PT and OT for evaluation for possible subacute rehab. 11/17: This morning, patient has increasing wheezing and tightness. SoluMedrol will be increased to 60 mg every 6 hours and Pulmicort increased 1 mg twice daily. IV Lasix was transitioned to oral Lasix yesterday. Metoprolol has been increased to 50 mg twice daily by cardiology as her heart rate this morning was in the 120s and 130s. patient monitor has been atrial fibrillation. Repeat blood work reveals WBC 17.7, hemoglobin 11.4. Blood sugars are running in the high 100s. Patient is eating between 50 and 100% of her meals. PT and OT have recommended subacute rehab. Discussed discharge planning with the patient and she becomes very anxious about option of subacute rehab. She reluctantly agrees to go to [facility]. We do not expect that she will be ready until Friday. Patient is hoping that she will be improved enough to go home but this is doubtful. liquor establishment manager is following closely for discharge planning. 11/18: Patient states that his shortness of breath is a little better from yesterday. She denies any productive cough. She denies chest pain or pressure. She states she had a good night and Ambien seems to be helping with her sleep. Patient is complaining of feeling shaky most likely from steroids which will be decreased to 40 mg every 8 hours. She remains in atrial fibrillation rate controlled. Pulmonary started on Lasix oral 40 twice a day yesterday. Discussed smoking and patient states she is having some nicotine cravings but has used the patch in the past and broke out in a rash. She states she is doing okay right now. Again emphasized the need for smoking cessation. Patient is now on O2 at 5 L most likely will require home O2 nebulizer at the time of discharge. Patient may also need a walker. Discussed discharge planning and she states that her son and [id number] from [place] will come and stay with her. Patient has been afebrile, heart rate 70, blood pressure 139/89, pulse ox 96% on 5 L nasal cannula. WBC 14.5, hemoglobin 9.4, platelet count 260. Sodium 132, potassium 3.6, chloride 97, CO2 28, BUN 29 creatinine 1.16. Blood sugars run between 142 and 221. Anticipate discharge by Friday. 11/19: Patient is sitting up in bed feeling a bit better today her oxygen requirement is about failure and is a cannula she denies any chest pain that she continues to have some shortness breath, she had an episode of the A. fib with RVR yesterday she is maintained on metoprolol 50 minute gram orally twice every day, Eliquis 5 mg orally twice every day and added verapamil 40 mg orally twice every day yesterday, patient will likely stay in hospital for another 24 hours then she can be discharged home with home PT as her son is driving from [place] to see stay with her. 11/20: Patient sitting up in bed in no apparent distress she denies any chest pain she continues to be some pressure of breath she is requiring about 3 and half liters nasal cannula, she is continued on prednisone 40 mg orally once every day, along with nebulized treatment, she will likely be able to be dis charged home tomorrow morning if her heart rate continues to be controlled she is currently on verapamil and metoprolol for his age fibrillation along with Eliquis 5 mg orally twice every day. Objective - Vital Signs Vital signs: Vital Signs Temp 98.4 F 11/21/19 08:30 Pulse 93 11/21/19 08:30 Resp 20 11/21/19 08:30 BP 131/65 11/21/19 08:30 Pulse Ox 95 11/21/19 08:30 Intake & Output 11/20/19 11/21/19 11/21/19 18:59 06:59 18:59 Intake Total 1740 240 720 Output Total 800 400 400 Balance 940 -160 320 Intake: Oral 1740 240 720 Output: Urine 800 400 400 Other: Voiding Method Bedside Commode # Voids 1 - Exam - Exam Review of Systems Constitutional: Reports fatigue, Reports weakness Eyes: denies blurred vision, denies bulging eye, denies decreased vision Ears, nose, mouth and throat: Denies dysphagia, Denies neck lump, Denies sore throat Cardiovascular: Denies chest pain, Reports decreased exercise tolerance, Reports dyspnea on exertion, Reports orthopnea, Denies rapid heart beat, Reports shortness of breath-improving Respiratory: Reports congestion, Reports cough, denies cough with sputum, Reports dyspnea, Reports wheezing Gastrointestinal: Denies abdominal pain, Denies bloating, Denies BRBPR, Denies heartburn, Denies melena, Denies nausea, Denies vomiting Genitourinary: Reports nocturia, Denies dysuria Menstruation: Reports postmenopausal Musculoskeletal: Denies myalgias Musculoskeletal: absent: ankle pain, ankle stiffness, ankle swelling, elbow pain, elbow stiffness, elbow swelling, foot pain, foot stiffness, foot swelling, hand pain, hand stiffness, hand swelling, hip pain, hip stiffness, hip swelling, knee pain, knee stiffness, knee swelling, shoulder pain, shoulder stiffness, shoulder swelling, wrist pain, wrist stiffness, wrist swelling Integumentary: Denies pruritus, Denies rash Neurological: Denies numbness, Denies weakness Psychiatric: Reports anxiety, reports insomnia, Reports depression, Reports sleep disturbances, Denies sadness/tearfulness, Denies suicidal ideation Endocrine: Denies fatigue, Denies weight change Physical examination: GEN: This is a 78-year-old female. She is resting in bed and appears to be in no acute distress. Patient is more relaxed today. HEENT: head is atraumatic normocephalic pupils were equal round reactive to light and accommodations, extra ocular muscle movements were intact. Neck: supple, no JVP. Chest: decrease breath sounds with few scattered expiratory wheezes, no intercostal retraction at rest. Heart: first heart sound is depressed, second heart sound is normal irregularly irregular, there is BEN 2/6 located at the left sternal border. Abdomen: soft non tender non distended positive bowel sounds. Extremities: there is no edema , no calf tenderness DP + 1 Bilaterally. Neurologic examination: patient is awake alert and oriented X3 CN II-XII are grossly intact , muscle power 4/5 in bilateral upper and lower extremities. - Labs CBC & Chem 7: 11/21/19 08:28 11/21/19 08:28 Labs: Abnormal Lab Results - Last 24 Hours (Table) 11/20/19 11/20/19 11/20/19 Range/Units 11:38 16:43 20:31 WBC (3.8-10.6) k/uL MCHC (31.0-37.0) g/dL Neutrophils # (1.3-7.7) k/uL Sodium (137-145) mmol/L Potassium (3.5-5.1) mmol/L Chloride (98-107) mmol/L Carbon Dioxide (22-30) mmol/L BUN (7-17) mg/dL Creatinine (0.52-1.04) mg/dL POC Glucose (mg/dL) 117 H 237 H 145 H (75-99) mg/dL 11/21/19 11/21/19 11/21/19 Range/Units 06:10 08:28 08:28 WBC 12.7 H (3.8-10.6) k/uL MCHC 30.9 L (31.0-37.0) g/dL Neutrophils # 8.2 H (1.3-7.7) k/uL Sodium 134 L (137-145) mmol/L Potassium 3.3 L (3.5-5.1) mmol/L Chloride 95 L (98-107) mmol/L Carbon Dioxide 32 H (22-30) mmol/L BUN 28 H (7-17) mg/dL Creatinine 1.08 H (0.52-1.04) mg/dL POC Glucose (mg/dL) 109 H (75-99) mg/dL Microbiology - Last 24 Hours (Table) 11/16/19 10:11 Blood Culture - Preliminary Blood No Growth after 96 hours Assessment and Plan Assessment: Assessment and Plan Plan: 1. Acute hypoxemic respiratory failure due to acute diastolic heart failure secondary to atrial flutter /fibrillation and COPD exacerbation. Oxygen is down to 3 L a candidate, patient was switched to oral prednisone 40 mg orally once every day, she will be maintained on DuoNeb the 3 mg nebulization 4 times every day, as well as Pulmicort 1 mg nebulization twice every day, patient is to be maintained on the Eliquis 5 mg orally twice every day, metoprolol 50 mg 3 times every day and added verapamil 40 mg twice every day 2. New onset atrial flutter/fibrillation. Heart rate is better continue verapamil 40 mg twice every day, metoprolol 50 mg orally 3 times every day, continue Eliquis 5 mg orally twice every day. 3. Acute Diastolic heart failure. Continue Lopressor 50 mg orally 3 times every day and Lasix 40 mg oral twice daily. 4. Acute COPD exacerbation. we will continue with O2 support, Duoneb 3 ml nebulization 4 times daily along with Pulmicort 1 mg nebulization bid, her oxygen is down to 3 L nasal cannula, most likely will require home oxygen. 5. Hypertension and hypertensive cardiovascular disease. Continue metoprolol 50 mg orally 3 times every day and verapamil 40 mg twice every day. 6. Hyperlipidemia. we will continue with low cholesterol diet. 7. Hypothyroidism. we will continue with Synthroid 50 mcg orally daily. 8. GERD with esophagitis. Protonix 40 mg orally increased to twice a day. 9. Chronic tobacco use and dependence. Patient does not want nicotine patch, counseled about smoking cessation. 10. Insomnia. Continue Ambien 5 mg at bedtime as needed. 11. Generalized anxiety disorder. Patient started on Xanax 0.25 mg twice daily as needed. 12. DVT prophylaxis. Eliquis 5 mg orally twice every day. 13. GI prophylaxis. we will continue with PPI. 14. COVID-19 infection not present. 15. Full code. Discharge plan: Friday with help of son and [id number], home care. Patient most likely will require home oxygen, nebulizer and walker.
--- NOTE | 2019-11-21 13:10 | P.PN ---
Subjective Progress Note Date: 11/21/19 Principal diagnosis: Shortness of breath and weakness 78-year-old white female patient of , with past medical history of COPD, chronic congestive heart failure, hypertension, coronary artery disease with previous PCI and stenting, GERD, who presented to the emergency department on 11/16/2019 with complaints of shortness of breath, orthopnea, and generalized weakness. Her shortness of breath was also exacerbated by any exertion, including walking. She denied any chest pain, denied any fever or chills. She is a chronic smoker, still smoking a pack a day. Her home maintenance inhalers include Symbicort, and albuterol. Patient is not on oxygen at baseline. Chest x-ray on admission showed prominence and central vascularity and interstitium, no pneumothorax or pleural effusions, increased bibasilar density. Lab work showed a white blood cell count of 10.9 hemoglobin of 12.2, INR is 1.3, serum sodium is 133, the rest of the electrolytes and renal profile were unremarkable, plasma lactic acid was 1.2, LFTs were within normal limits, troponins were less than 0.0123, proBNP was elevated at 3010, TSH was within normal limits at 2.36. EKG was obtained in the emergency department showing A. fib flutter, with frequent PVCs. Her previous echocardiogram from May 2018 showed EF of 55- 60%, left ventricular wall thickness was within normal limits, no aortic stenosis or regurgitation, mild mitral regurgitation, trace tricuspid regurgitation, no evidence of pulmonary hypertension with right-sided pressures of 12.5 mmHg. patient was started on IV diuretics in the emergency department, she was started on IV heparin, and Cardizem infusion which is not currently running, she was placed on BiPAP support initially, she is currently on nasal cannula, at 4 L/m, her pulse ox is 94%, she is diuresing. She is getting up to the commode, her shortness of breath has improved, she has a bibasilar crackles on physical exam, and some limited wheezing. On 11/17/2019 patient seen in follow-up on selective care unit. Patient continues on IV Lasix, she is diuresing, she is -1.3 L fluid balance over the last 24 hours, breathing easier, no crackles on today's exam, patient does however still has some scattered wheezing. Complaints of chest pain, she continues on IV Solu-Medrol, IV Lasix, today's labs have been reviewed, showing white blood cell count of 15.4, hemoglobin of 12.1, sodium is 134, potassium is 4.5, B1 is 20, and creatinine is 1.1. Her troponins have been negative 3, her chest x-ray shows persistent but improving right lower lobe infiltrate. The echocardiogram showed mild LVH, EF between 55-60%, moderate mitral regurg, mild to moderate tricuspid regurg, and moderate to severe pulmonary hypertension and inferior vena cava dilated with no significant inspiratory collapse and right atrial pressure of greater than 20 mmHg. No significant lower extremity edema. She remains on Cardizem infusion at 5 mg per hour. Heart rate is currently controlled, in the 80s and 90s BPM, atrial fib flutter On 11/18/2019 patient seen in follow-up on selective care unit, he is awake and alert, on 5 L of oxygen her pulse ox is 95%, she is afebrile, she remains in atrial fibrillation, with a rate of 112 BPM, still has exertional dyspnea, and still bronchospastic, although somewhat improved, mild pretibial edema, patient has been diuresed, patient has been transitioned to oral Lasix of 40 mg twice daily, she is on oral intake regulation of Eliquis, she is on IV steroids and nebulized bronchodilators. Patient is seen today 11/19/2019 in follow-up on the selective care unit. She is currently awake and alert. Breathing easier today compared to yesterday. She is maintaining O2 saturations in the mid 90s on 5 L/m per nasal cannula. She's afebrile. Blood culture reveals no growth. White count 14.5. Hemoglobin 11.4. Sodium 132. Potassium 3.6. Creatinine 1.16. She is continued on DuoNeb inhalations, Pulmicort and Perforomist inhalations, IV Solu-Medrol. Anticoagulated with Eliquis. Remains on oral diuretics. Heart rate is better controlled. The patient is seen today 11/20/2019 in follow-up on the selective care unit. Maintaining O2 saturation in the mid 90s on 3 L/m per nasal cannula. Afebrile. Slightly tachycardic. Tachypneic. Blood cultures reveal no growth to date. Sodium 132. Potassium 2.9. Chloride 92. Bicarb 31. Creatinine 1.23. She remains on DuoNeb inhalations, Pulmicort inhalations, prednisone. Oral diuretics. Anticoagulated with Eliquis. The patient is seen today 11/21/2019 in follow-up on the selective care unit. She's been up ambulating in her room. Up in the shower. Breathing easier today compared to yesterday. Maintaining O2 saturation in the mid 90s on 3 L/m per nasal cannula. She's afebrile. White count 12.7. Hemoglobin 11.8. Sodium 134. Potassium 3.3. Bicarb 32. Creatinine 1.08. Objective - Vital Signs Vital signs: Vital Signs Temp 98.4 F 11/21/19 08:30 Pulse 100 11/21/19 11:26 Resp 20 11/21/19 08:30 BP 131/65 11/21/19 08:30 Pulse Ox 95 11/21/19 08:30 Intake & Output 11/20/19 11/21/19 11/21/19 18:59 06:59 18:59 Intake Total 1740 240 720 Output Total 800 400 400 Balance 940 -160 320 Intake: Oral 1740 240 720 Output: Urine 800 400 400 Other: Voiding Method Bedside Commode # Voids 1 - Exam GENERAL EXAM: Alert, very pleasant, 78-year-old female patient, on 3 L of oxygen and the pulse ox of 95%, comfortable in no apparent distress. HEAD: Normocephalic/atraumatic. EYES: Normal reaction of pupils, equal size. Conjunctiva pink, sclera white. NOSE: Clear with pink turbinates. THROAT: No erythema or exudates. NECK: No masses, no JVD, no thyroid enlargement, no adenopathy. CHEST: No chest wall deformity. Symmetrical expansion. LUNGS: Equal air entry with expiratory wheezing. Diminished. CVS: Irregular rate and rhythm, normal S1 and S2, no gallops, no murmurs, no rubs ABDOMEN: Soft, nontender. No hepatosplenomegaly, normal bowel sounds, no guarding or rigidity. EXTREMITIES: No clubbing, no edema, no cyanosis, 2+ pulses and upper and lower extremities. MUSCULOSKELETAL: Muscle strength and tone normal. SPINE: No scoliosis or deformity SKIN: No rashes CENTRAL NERVOUS SYSTEM: No focal deficits, tone is normal in all 4 extremities. PSYCHIATRIC: Alert and oriented -3. Appropriate affect. Intact judgment and insight. - Labs CBC & Chem 7: 11/21/19 08:28 11/21/19 08:28 Labs: Abnormal Lab Results - Last 24 Hours (Table) 11/20/19 11/20/19 11/21/19 Range/Units 16:43 20:31 06:10 WBC (3.8-10.6) k/uL MCHC (31.0-37.0) g/dL Neutrophils # (1.3-7.7) k/uL Sodium (137-145) mmol/L Potassium (3.5-5.1) mmol/L Chloride (98-107) mmol/L Carbon Dioxide (22-30) mmol/L BUN (7-17) mg/dL Creatinine (0.52-1.04) mg/dL POC Glucose (mg/dL) 237 H 145 H 109 H (75-99) mg/dL 11/21/19 11/21/19 11/21/19 Range/Units 08:28 08:28 11:16 WBC 12.7 H (3.8-10.6) k/uL MCHC 30.9 L (31.0-37.0) g/dL Neutrophils # 8.2 H (1.3-7.7) k/uL Sodium 134 L (137-145) mmol/L Potassium 3.3 L (3.5-5.1) mmol/L Chloride 95 L (98-107) mmol/L Carbon Dioxide 32 H (22-30) mmol/L BUN 28 H (7-17) mg/dL Creatinine 1.08 H (0.52-1.04) mg/dL POC Glucose (mg/dL) 126 H (75-99) mg/dL Microbiology - Last 24 Hours (Table) 11/16/19 10:11 Blood Culture - Preliminary Blood No Growth after 120 hours Assessment and Plan Assessment: #1. Acute exacerbation of chronic congestive heart failure, with previously documented diastolic dysfunction, repeat echocardiogram showed mild LVH, EF 55- 60% #2. Mild exacerbation of chronic obstructive pulmonary disease, not oxygen dependent at baseline #3. Acute hypoxic respiratory failure related to acute exacerbation of diastolic CHF and COPD, did require brief BiPAP support, remains on supplemental oxygen #4. Hypertension #5. Coronary artery disease with previous history of stenting #6. GERD/reflux #7. Chronic and ongoing history of smoking, still smoking a pack a day #8. Hypothyroidism, on thyroid replacement therapy #9. Severe pulmonary hypertension, with right-sided pressure of 64.7 mmHg, and mild to moderate tricuspid regurgitation, moderate mitral regurgitation Plan: The patient was seen and evaluated by Dr. Avendaño Continue the current treatment plan Titrate down the FiO2 as tolerated Increase her activity as tolerated We'll continue to follow I, the cosigning physician, performed a history & physical examination of the patient. Lungs sounds with bilateral end expiratory wheeze, diminished. Maintaining good O2 saturations in the 90s on 3 L/m per nasal cannula. I discussed the assessment and plan of care with my nurse practitioner, Lisa Marrufo. I attest to the above note as dictated by her.
--- NOTE | 2019-11-21 13:29 | PN ---
PROGRESS NOTE Mrs. Montes complains of epigastric pain. I am recommending Protonix 40 mg daily. Her rate control is fair but with activity it goes up. I will increase metoprolol tartrate to 50 mg t.i.d., add verapamil 40 mg b.i.d. and Protonix. Continue all her other medications. Vitals are stable. JVD is evident. Heart exam reveals S1, S2 with irregular rhythm, short systolic murmur. Lungs reveal diminished air entry. Abdomen and lower extremity exam otherwise are unchanged MMODL / IJN: [id number] /
[2019-11-21 16:49] LABS: Glucose,Whole Blood 239 mg/dL (75-99)
[2019-11-21] MEDS: amLODIPine 2.5 MG TAB PO SCH (20:11)
[2019-11-21 20:47] LABS: Glucose,Whole Blood 122 mg/dL (75-99)
[2019-11-22] MEDS: ZOLPIDEM 5 MG TAB PO PRN (00:42)
[2019-11-22] MEDS: IPRATROPIUM-ALBUTEROL 3 ML NEB INHALATION SCH ×3 (03:30→11:56)
[2019-11-22 06:04] LABS: Glucose,Whole Blood 103 mg/dL (75-99)
[2019-11-22] MEDS: INSULIN ASPART (NovoLOG) 100 UNIT/ML VIAL SQ SCH (06:25)
[2019-11-22] MEDS: LEVOTHYROXINE 50 MCG TAB PO SCH (06:29)
[2019-11-22] MEDS: PANTOPRAZOLE 40 MG TABLET PO SCH (06:29)
[2019-11-22 07:06] LABS: Basophils % (A) 0 %; Eosinophils # (A) 0.1 k/uL (0-0.7); Eosinophils % (A) 1 %; HGB 12.3 gm/dL (11.4-16.0); Hypochromasia Slight; Lymphocytes # (A) 3.4 k/uL (1.0-4.8); Lymphocytes % (A) 26 %; MCH 28.5 pg (25.0-35.0); MCHC 32.4 g/dL (31.0-37.0); MCV 87.9 fL (80.0-100.0); Mean Platelet Volume 7.2; Monocytes # (A) 0.6 k/uL (0-1.0); Monocytes % (A) 5 %; Neutrophils # (A) 8.9 k/uL (1.3-7.7); Neutrophils % (A) 68 %; Platelet Count 254 k/uL (150-450); RBC 4.32 m/uL (3.80-5.40); WBC 13.2 k/uL (3.8-10.6)
[2019-11-22 07:21] LABS: Calcium 8.9 mg/dL (8.4-10.2); Magnesium 2.1 mg/dL (1.6-2.3); Potassium 3.8 mmol/L (3.5-5.1)
--- NOTE | 2019-11-22 07:34 | P.DS ---
Providers Date of admission: 11/16/19 08:31 Expected date of discharge: 11/22/19 Attending physician: Lily Davis Consults: 11/16/19 08:32 Consult Physician Routine Consulting Provider: [facility] Consult Reason/Comments: new onset a fib, bigeminy Do you want consulting provider notified?: Yes 11/16/19 08:38 Consult Physician Routine Consulting Provider: Ashanti Avendaño Consult Reason/Comments: SOB, COPD, CHF Do you want consulting provider notified?: Yes Primary care physician: Lily Davis Hospital Course: This is a 78 year old female with a previous medical history significant for hypertension and hypertensive cardiovascular disease, hyperlipidemia, chronic tobacco use and dependence with COPD, GERD and insomnia, patient developed to have increased shortness of breath about a week ago with significant orthopnea and PND, she finally decided to call EMS yesterday and she was brought into the ER at [facility] whee she was found to have a new onset atrial flutter with variable response and CXR showed CHF along with COPD initially she was placed on BIPAP then she was switches to nasal canula, she was admitted to the hospital after starting her on heparin drip and cardizem drip along with pulmonary and cardiology consult. 11/16: Echocardiogram reveals EF of 55-60%, LA severely dilated greater than 40 ml/m2, moderate mitral regurgitation, mild to moderate tricuspid regurgitation, moderate to severe pulmonary hypertension. Repeat chest x-ray reveals persistent but improving right lower lobe infiltrate. Patient has been seen by Dr. Avendaño and steroids were added have 40 mg every 8 hours IV. Patient has been seen by cardiology and Cardizem drip was discontinued. Patient was started on Lopressor 25 mg 3 times daily and eliquis 5 mg twice daily.troponins were negative on 3 draws. TSH 2.360. Repeat renal function reveals BUN of 20 creatinine 1.11. Blood sugar 178. WBC 15.4. Urinalysis showed trace leukoesterase, occasional bacteria. COVID-19 not detected. Blood culture no growth at 24 hours. Patient's breathing status is improved today from yesterday but continues to have wheezing. No change in Solu-Medrol. Patient states that the Restoril did not help her sleeping and asking for another medication to help. Ambien will be added for now. We will add in PT and OT for evaluation for possible subacute rehab. 11/17: This morning, patient has increasing wheezing and tightness. SoluMedrol will be increased to 60 mg every 6 hours and Pulmicort increased 1 mg twice daily. IV Lasix was transitioned to oral Lasix yesterday. Metoprolol has been increased to 50 mg twice daily by cardiology as her heart rate this morning was in the 120s and 130s. family service center director has been atrial fibrillation. Repeat blood work reveals WBC 17.7, hemoglobin 11.4. Blood sugars are running in the high 100s. Patient is eating between 50 and 100% of her meals. PT and OT have recommended subacute rehab. Discussed discharge planning with the patient and she becomes very anxious about option of subacute rehab. She reluctantly agrees to go to [facility]. We do not expect that she will be ready until Friday. Patient is hoping that she will be improved enough to go home but this is doubtful. biology manager is following closely for discharge planning. 11/18: Patient states that his shortness of breath is a little better from yesterday. She denies any productive cough. She denies chest pain or pressure. She states she had a good night and Ambien seems to be helping with her sleep. Patient is complaining of feeling shaky most likely from steroids which will be decreased to 40 mg every 8 hours. She remains in atrial fibrillation rate controlled. Pulmonary started on Lasix oral 40 twice a day yesterday. Discussed smoking and patient states she is having some nicotine cravings but has used the patch in the past and broke out in a rash. She states she is doing okay right now. Again emphasized the need for smoking cessation. Patient is now on O2 at 5 L most likely will require home O2 nebulizer at the time of discharge. Patient may also need a walker. Discussed discharge planning and she states that her son and [id number] from [place] will come and stay with her. Patient has been afebrile, heart rate 70, blood pressure 139/89, pulse ox 96% on 5 L nasal cannula. WBC 14.5, hemoglobin 9.4, platelet count 260. Sodium 132, potassium 3.6, chloride 97, CO2 28, BUN 29 creatinine 1.16. Blood sugars run between 142 and 221. Anticipate discharge by Friday. 11/19: Patient is sitting up in bed feeling a bit better today her oxygen requirement is about failure and is a cannula she denies any chest pain that she continues to have some shortness breath, she had an episode of the A. fib with RVR yesterday she is maintained on metoprolol 50 minute gram orally twice every day, Eliquis 5 mg orally twice every day and added verapamil 40 mg orally twice every day yesterday, patient will likely stay in hospital for another 24 hours then she can be discharged home with home PT as her son is driving from [place] to see stay with her. 11/20: Patient sitting up in bed in no apparent distress she denies any chest pain she continues to be some pressure of breath she is requiring about 3 and half liters nasal cannula, she is continued on prednisone 40 mg orally once every day, along with nebulized treatment, she will likely be able to be discharged home tomorrow morning if her heart rate continues to be controlled she is currently on verapamil and metoprolol for his age fibrillation along with Eliquis 5 mg orally twice every day. 11/21: Patient is sitting up in bed and appears to be comfortable and in no acute distress. She continues to have some weakness but is going to try to go home with family for 1 week and see how she does. Patient's son is agreeable. She has been checked for home oxygen need and pulse ox dropped to 85-88% with ambulation. Patient is also in need of a nebulizer as well as in both are being arranged by [facility] [employer]. She has been afebrile, heart rate 58, blood pressure 151/68, pulse ox 94% on 3 L nasal cannula. Repeat blood work reveals a BBC 1 3.2, hemoglobin 12.3, platelet count 254. Sodium 133, but isn't 3.8, chloride 93, CO2 35, BUN 25 creatinine 1.09. Blood sugars are 90 and 139. The patient will be discharged home today in stable condition. Discharge diagnoses: 1. Acute hypoxemic respiratory failure due to acute diastolic heart failure secondary to atrial flutter /fibrillation and COPD exacerbation. 2. New onset atrial flutter/fibrillation, paroxysmal atrial fibrillation. 3. Acute Diastolic heart failure. 4. Acute COPD exacerbation. 5. Hypertension and hypertensive cardiovascular disease. 6. Hyperlipidemia. 7. Hypothyroidism. 8. GERD with esophagitis. 9. Chronic tobacco use and dependence. 10. Insomnia. 11. Generalized anxiety disorder. 12. Chronic hypoxic respiratory failure requiring home oxygen. 13. COVID-19 infection not present. Discharge plan: Home with home care. Home oxygen, nebulizer and walker have been arranged by [employer]. Impression and plan of care have been directed as dictated by the signing physician. Varsha Rodarte nurse practitioner acting as scribe for signing physician. Patient Condition at Discharge: Good Plan - Discharge Summary Discharge Rx Participant: No New Discharge Prescriptions: New Zolpidem [Ambien] 5 mg PO HS PRN #3 tab PRN Reason: Insomnia Ipratropium-Albuterol Nebulize [Duoneb 0.5 mg-3 mg/3 ml Soln] 3 ml INHALATION RT-Q6H #120 dose Apixaban [Eliquis] 5 mg PO BID #60 tab Verapamil [Isoptin] 80 mg PO BID #60 tab Potassium Chloride ER [K-Dur 20] 20 meq PO DAILY #30 tab Furosemide [Lasix] 40 mg PO DAILY #30 tab Metoprolol Tartrate [Lopressor] 50 mg PO TID #90 tab Nystatin 100,000 Unit/ml Susp [Mycostatin Oral Susp] 500,000 unit PO QID #150 ml predniSONE 0 mg PO DIRECTED #30 tab Pantoprazole [Protonix] 40 mg PO AC-BID #60 tablet. ALPRAZolam [Xanax] 0.25 mg PO BID PRN #6 tab PRN Reason: Anxiety Continue amLODIPine [Norvasc] 2.5 mg PO HS Levothyroxine Sodium [Synthroid] 50 mcg PO DAILY Cholecalciferol [Vitamin D3 (25 Mcg = 1000 Iu)] 1,000 unit PO DAILY Ascorbic Acid [Vitamin C] 500 mg PO DAILY Budesonide-Formot 160-4.5 Mcg [Symbicort 160-4.5 Mcg Inhaler] 2 puff INHALATION RT-BID Discontinued Omeprazole [PriLOSEC] 20 mg PO AC-BRKFST Atenolol [Tenormin] 50 mg PO QAM Aspirin EC [Ecotrin Low Dose] 81 mg PO DAILY Suvorexant [Belsomra] 20 mg PO HS PRN PRN Reason: Insomnia Atenolol [Tenormin] 50 mg PO DAILY Discharge Medication List amLODIPine [Norvasc] 2.5 mg PO HS 02/18/14 [History] Ascorbic Acid [Vitamin C] 500 mg PO DAILY 11/16/19 [History] Budesonide-Formot 160-4.5 Mcg [Symbicort 160-4.5 Mcg Inhaler] 2 puff INHALATION RT-BID 11/16/19 [History] Cholecalciferol [Vitamin D3 (25 Mcg = 1000 Iu)] 1,000 unit PO DAILY 11/16/19 [History] Levothyroxine Sodium [Synthroid] 50 mcg PO DAILY 11/16/19 [History] ALPRAZolam [Xanax] 0.25 mg PO BID PRN #6 tab 11/22/19 [Rx] Apixaban [Eliquis] 5 mg PO BID #60 tab 11/22/19 [Rx] Furosemide [Lasix] 40 mg PO DAILY #30 tab 11/22/19 [Rx] Ipratropium-Albuterol Nebulize [Duoneb 0.5 mg-3 mg/3 ml Soln] 3 ml INHALATION RT-Q6H #120 dose 11/22/19 [Rx] Metoprolol Tartrate [Lopressor] 50 mg PO TID #90 tab 11/22/19 [Rx] Nystatin 100,000 Unit/ml Susp [Mycostatin Oral Susp] 500,000 unit PO QID #150 ml 11/22/19 [Rx] Pantoprazole [Protonix] 40 mg PO AC-BID #60 tablet.dr 11/22/19 [Rx] Potassium Chloride ER [K-Dur 20] 20 meq PO DAILY #30 tab 11/22/19 [Rx] Verapamil [Isoptin] 80 mg PO BID #60 tab 11/22/19 [Rx] Zolpidem [Ambien] 5 mg PO HS PRN #3 tab 11/22/19 [Rx] predniSONE 0 mg PO DIRECTED #30 tab 11/22/19 [Rx] Follow up Appointment(s)/Referral(s): Lily Davis MD [Primary Care Provider] - 11/24/19 1:00 pm [facility],Equipment [NON-STAFF] - (Supplies Home oxygen, nebulizer and walker.) [facility], [NON-STAFF] - Ashanti Avendaño MD [STAFF PHYSICIAN] - 12/09/19 3:00 pm Patient Instructions/Handouts: Heart Failure (DC), A-fib (Atrial Fibrillation) (DC), COPD (Chronic Obstructive Pulmonary Disease) (DC) Discharge Disposition: HOME WITH HOME HEALTH SERVICES
[2019-11-22] MEDS: BUDESONIDE 1 MG/2 ML NEBU INHALATION SCH (08:38)
[2019-11-22] MEDS: predniSONE 20 MG TAB PO SCH (08:59)
[2019-11-22] MEDS: METOPROLOL TARTRATE 50 MG TAB PO SCH (08:59)
[2019-11-22] MEDS: VERAPAMIL 80 MG TAB PO SCH (08:59)
[2019-11-22] MEDS: NYSTATIN 100,000 UNIT/ML SUSP 500,000 UNIT/5 ML CUP PO SCH (08:59)
[2019-11-22] MEDS: APIXABAN 5 MG TAB PO SCH (08:59)
[2019-11-22] MEDS: FUROSEMIDE 40 MG TAB PO SCH (08:59)
[2019-11-22 11:17] VITALS: BP 151/68; RESP 24; TEMP 97.8
[2019-11-22 11:36] LABS: Glucose,Whole Blood 139 mg/dL (75-99)
[2019-11-22 11:59] VITALS: PULSE 64
--- NOTE | 2019-11-22 13:15 | P.PN ---
Subjective Progress Note Date: 11/22/19 This is a 78-year-old white female patient of , with past medical history of COPD, chronic congestive heart failure, hypertension, persistent atrial fibrillation, coronary artery disease with previous PCI and stenting, GERD, who presented to the emergency department on 11/16/2019 with complaints of shortness of breath, orthopnea, and generalized weakness. Her shortness of breath was also exacerbated by any exertion, including walking. She denied any chest pain, denied any fever or chills. She is a chronic smoker, still smoking a pack a day. She has been being treated for CHF exacerbation. Patient was seen and examined this morning, she has been up ambulating with her walker, overall fee ling well. Blood pressure 150/60 with a heart rate in the 50s. White blood cell count 13.2, hemoglobin 12.3, platelet count 254. Sodium 133, potassium 3.8, BUN 25, creatinine 1.0, magnesium 2.1. Objective - Vital Signs Vital signs: Vital Signs Temp 97.8 F 11/22/19 08:00 Pulse 64 11/22/19 12:09 Resp 24 11/22/19 08:00 BP 151/68 11/22/19 08:00 Pulse Ox 94 L 11/22/19 04:00 Intake & Output 11/21/19 11/22/19 11/22/19 18:59 06:59 18:59 Intake Total 1860 Output Total 1200 1200 Balance 660 -1200 Weight 88.3 kg Intake: Oral 1860 Output: Urine 1200 1200 Other: Voiding Method Bedside Commode # Voids 2 - Exam GENERAL EXAM: Alert, very pleasant, 78-year-old female patient, on 3 L of oxygen and the pulse ox of 95%, comfortable in no apparent distress. HEAD: Normocephalic/atraumatic. EYES: Normal reaction of pupils, equal size. Conjunctiva pink, sclera white. NOSE: Clear with pink turbinates. THROAT: No erythema or exudates. NECK: No masses, no JVD, no thyroid enlargement, no adenopathy. CHEST: No chest wall deformity. Symmetrical expansion. LUNGS: Equal air entry with expiratory wheezing. Diminished. CVS: Irregular rate and rhythm, normal S1 and S2, no gallops, no murmurs, no rubs ABDOMEN: Soft, nontender. No hepatosplenomegaly, normal bowel sounds, no guarding or rigidity. EXTREMITIES: No clubbing, no edema, no cyanosis, 2+ pulses and upper and lower extremities. MUSCULOSKELETAL: Muscle strength and tone normal. SPINE: No scoliosis or deformity SKIN: No rashes CENTRAL NERVOUS SYSTEM: No focal deficits, tone is normal in all 4 extremities. PSYCHIATRIC: Alert and oriented -3. Appropriate affect. Intact judgment and insight. - Labs CBC & Chem 7: 11/22/19 06:37 11/22/19 06:37 Labs: Abnormal Lab Results - Last 24 Hours (Table) 11/21/19 11/21/19 11/22/19 Range/Units 16:48 20:45 06:00 WBC (3.8-10.6) k/uL Neutrophils # (1.3-7.7) k/uL Sodium (137-145) mmol/L Chloride (98-107) mmol/L Carbon Dioxide (22-30) mmol/L BUN (7-17) mg/dL Creatinine (0.52-1.04) mg/dL POC Glucose (mg/dL) 239 H 122 H 103 H (75-99) mg/dL 11/22/19 11/22/19 11/22/19 Range/Units 06:37 06:37 11:34 WBC 13.2 H (3.8-10.6) k/uL Neutrophils # 8.9 H (1.3-7.7) k/uL Sodium 133 L (137-145) mmol/L Chloride 93 L (98-107) mmol/L Carbon Dioxide 35 H (22-30) mmol/L BUN 25 H (7-17) mg/dL Creatinine 1.09 H (0.52-1.04) mg/dL POC Glucose (mg/dL) 139 H (75-99) mg/dL Microbiology - Last 24 Hours (Table) 11/16/19 10:11 Blood Culture - Final Blood No Growth after 144 hours Assessment and Plan Plan: Assessment: #1. Acute on chronic exacerbation of chronic congestive heart failure, with previously documented diastolic dysfunction, repeat echocardiogram showed mild LVH, EF 55-60% #2. Mild exacerbation of chronic obstructive pulmonary disease, not oxygen dependent at baseline #3. Persistent atrial fibrillation, on Eliquis for anticoagulation #4. Hypertension #5. Coronary artery disease with previous history of stenting #6. GERD/reflux #7. Chronic and ongoing history of smoking, still smoking a pack a day #8. Hypothyroidism #9. Severe pulmonary hypertension Plan From cardiology's perspective, patient may be able to be discharged home today. We'll make her a follow-up appointment in the office post discharge. DNP note has been reviewed, I agree with a documented findings and plan of care. Patient was seen and examined.
--- NOTE | 2019-11-22 13:50 | P.PN ---
Subjective Progress Note Date: 11/22/19 Principal diagnosis: Acute exacerbation of diastolic congestive heart failure and mild exacerbation of COPD with acute hypoxic respiratory failure secondary to both 78-year-old white female patient of , with past medical history of COPD, chronic congestive heart failure, hypertension, coronary artery disease with previous PCI and stenting, GERD, who presented to the emergency department on 11/16/2019 with complaints of shortness of breath, orthopnea, and generalized we akness. Her shortness of breath was also exacerbated by any exertion, including walking. She denied any chest pain, denied any fever or chills. She is a chronic smoker, still smoking a pack a day. Her home maintenance inhalers include Symbicort, and albuterol. Patient is not on oxygen at baseline. Chest x-ray on admission showed prominence and central vascularity and interstitium, no pneumothorax or pleural effusions, increased bibasilar density. Lab work showed a white blood cell count of 10.9 hemoglobin of 12.2, INR is 1.3, serum sodium is 133, the rest of the electrolytes and renal profile were unremarkable, plasma lactic acid was 1.2, LFTs were within normal limits, troponins were less than 0.0123, proBNP was elevated at 3010, TSH was within normal limits at 2.36. EKG was obtained in the emergency department showing A. fib flutter, with frequent PVCs. Her previous echocardiogram from May 2018 showed EF of 55- 60%, left ventricular wall thickness was within normal limits, no aortic stenosis or regurgitation, mild mitral regurgitation, trace tricuspid regurgitation, no evidence of pulmonary hypertension with right-sided pressures of 12.5 mmHg. patient was started on IV diuretics in the emergency department, she was started on IV heparin, and Cardizem infusion which is not currently running, she was placed on BiPAP support initially, she is currently on nasal cannula, at 4 L/m, her pulse ox is 94%, she is diuresing. She is getting up to the commode, her shortness of breath has improved, she has a bibasilar crackles on physical exam, and some limited wheezing. On 11/17/2019 patient seen in follow-up on selective care unit. Patient continues on IV Lasix, she is diuresing, she is -1.3 L fluid balance over the last 24 hours, breathing easier, no crackles on today's exam, patient does however still has some scattered wheezing. Complaints of chest pain, she continues on IV Solu-Medrol, IV Lasix, today's labs have been reviewed, showing white blood cell count of 15.4, hemoglobin of 12.1, sodium is 134, potassium is 4.5, B1 is 20, and creatinine is 1.1. Her troponins have been negative 3, her chest x-ray shows persistent but improving right lower lobe infiltrate. The echocardiogram showed mild LVH, EF between 55-60%, moderate mitral regurg, mild to moderate tricuspid regurg, and moderate to severe pulmonary hypertension and inferior vena cava dilated with no significant inspiratory collapse and right atrial pressure of greater than 20 mmHg. No significant lower extremity edema. She remains on Cardizem infusion at 5 mg per hour. Heart rate is currently controlled, in the 80s and 90s BPM, atrial fib flutter On 11/18/2019 patient seen in follow-up on selective care unit, he is awake and alert, on 5 L of oxygen her pulse ox is 95%, she is afebrile, she remains in atrial fibrillation, with a rate of 112 BPM, still has exertional dyspnea, and still bronchospastic, although somewhat improved, mild pretibial edema, patient has been diuresed, patient has been transitioned to oral Lasix of 40 mg twice daily, she is on oral intake regulation of Eliquis, she is on IV steroids and nebulized bronchodilators. Patient is seen today 11/19/2019 in follow-up on the selective care unit. She is currently awake and alert. Breathing easier today compared to yesterday. She is maintaining O2 saturations in the mid 90s on 5 L/m per nasal cannula. She's afebrile. Blood culture reveals no growth. White count 14.5. Hemoglobin 11.4. Sodium 132. Potassium 3.6. Creatinine 1.16. She is continued on DuoNeb inhalations, Pulmicort and Perforomist inhalations, IV Solu-Medrol. Anticoagulated with Eliquis. Remains on oral diuretics. Heart rate is better controlled. The patient is seen today 11/20/2019 in follow-up on the selective care unit. Maintaining O2 saturation in the mid 90s on 3 L/m per nasal cannula. Afebrile. Slightly tachycardic. Tachypneic. Blood cultures reveal no growth to date. Sodium 132. Potassium 2.9. Chloride 92. Bicarb 31. Creatinine 1.23. She remains on DuoNeb inhalations, Pulmicort inhalations, prednisone. Oral diuretics. Anticoagulated with Eliquis. The patient is seen today 11/21/2019 in follow-up on the selective care unit. She's been up ambulating in her room. Up in the shower. Breathing easier today compared to yesterday. Maintaining O2 saturation in the mid 90s on 3 L/m per n hemalatha cannula. She's afebrile. White count 12.7. Hemoglobin 11.8. Sodium 134. Potassium 3.3. Bicarb 32. Creatinine 1.08. Reevaluated today on 11/22/19 patient is doing great, feeling much better, breathing a lot easier, maintaining good O2 saturation on few liters nasal cannula, hardly any cough no wheezing no shortness of breath, and the patient is in the process of being discharged home today. Objective - Vital Signs Vital signs: Vital Signs Temp 97.8 F 11/22/19 08:00 Pulse 64 11/22/19 12:09 Resp 24 11/22/19 08:00 BP 151/68 11/22/19 08:00 Pulse Ox 94 L 11/22/19 04:00 Intake & Output 11/21/19 11/22/19 11/22/19 18:59 06:59 18:59 Intake Total 1860 Output Total 1200 1200 Balance 660 -1200 Weight 88.3 kg Intake: Oral 1860 Output: Urine 1200 1200 Other: Voiding Method Bedside Commode # Voids 2 - Exam Physical Exam: Revealed a 78-year-old female in no distress. Head: Atraumatic, normocephalic. HEENT:[Neck is supple.] [No neck masses.] [No thyromegaly.] [No JVD.] Chest: [Clear throughout, no crackles, no rhonchi, no wheezes.] Cardiac Exam: [Normal S1 and S2, no S3 gallop, no murmur.] Abdomen: [Soft, nontender, no megaly, no rebound, no guarding, normal bowel sounds.] Extremities: [No clubbing, no edema, no cyanosis.] Neurological Exam: [No focal neurologic deficit.] - Labs CBC & Chem 7: 11/22/19 06:37 11/22/19 06:37 Labs: Abnormal Lab Results - Last 24 Hours (Table) 11/21/19 11/21/19 11/22/19 Range/Units 16:48 20:45 06:00 WBC (3.8-10.6) k/uL Neutrophils # (1.3-7.7) k/uL Sodium (137-145) mmol/L Chloride (98-107) mmol/L Carbon Dioxide (22-30) mmol/L BUN (7-17) mg/dL Creatinine (0.52-1.04) mg/dL POC Glucose (mg/dL) 239 H 122 H 103 H (75-99) mg/dL 11/22/19 11/22/19 11/22/19 Range/Units 06:37 06:37 11:34 WBC 13.2 H (3.8-10.6) k/uL Neutrophils # 8.9 H (1.3-7.7) k/uL Sodium 133 L (137-145) mmol/L Chloride 93 L (98-107) mmol/L Carbon Dioxide 35 H (22-30) mmol/L BUN 25 H (7-17) mg/dL Creatinine 1.09 H (0.52-1.04) mg/dL POC Glucose (mg/dL) 139 H (75-99) mg/dL Microbiology - Last 24 Hours (Table) 11/16/19 10:11 Blood Culture - Final Blood No Growth after 144 hours Assessment and Plan Assessment: Impression: Acute hypoxic respiratory failure secondary to acute diastolic congestive heart failure and mild COPD exacerbation. Acute exacerbation of diastolic congestive heart failure Benign essential hypertension Coronary artery disease Chronic and ongoing history of smoking Hypothyroidism, on replacement therapy History of severe pulmonary hypertension and moderate tricuspid regurgitation as well as mitral regurgitation. Recommendation: Continue present course of treatment including bronchodilators, diuretics, Continue oxygen, Agree with discharge planning today and follow up on outpatient basis. Time with Patient: Less than 30
== END 2019-11-22 13:31 | disposition home health service (06) | DRG 291 ==
LOC: EC 06:05 → 3SCARD 08:31
PROVIDERS: ADMIT Internal Medicine; ATTEND Internal Medicine
PROC: 5A09557 Assistance with Respiratory Ventilation, Greater than 96 Consecutive Hours, Continuous Positive Airway Pressure (ICD-10-PCS; principal; 2019-11-16)
DX: I11.0 Hypertensive heart disease with heart failure (principal); J96.21 Acute and chronic respiratory failure with hypoxia; J44.1 Chronic obstructive pulmonary disease with (acute) exacerbation; I48.19 Other persistent atrial fibrillation; I50.33 Acute on chronic diastolic (congestive) heart failure; I27.20 Pulmonary hypertension, unspecified; E03.9 Hypothyroidism, unspecified; E78.00 Pure hypercholesterolemia, unspecified; E78.5 Hyperlipidemia, unspecified; F17.210 Nicotine dependence, cigarettes, uncomplicated; F41.1 Generalized anxiety disorder; G47.00 Insomnia, unspecified; I25.10 Atherosclerotic heart disease of native coronary artery without angina pectoris; K21.0 Gastro-esophageal reflux disease with esophagitis; M19.90 Unspecified osteoarthritis, unspecified site; Z20.828 Contact with and (suspected) exposure to other viral communicable diseases; Z96.1 Presence of intraocular lens; I49.3 Ventricular premature depolarization; I08.1 Rheumatic disorders of both mitral and tricuspid valves; E87.6 Hypokalemia; Z79.01 Long term (current) use of anticoagulants; Z79.890 Hormone replacement therapy; Z79.899 Other long term (current) drug therapy; Z87.01 Personal history of pneumonia (recurrent); Z79.51 Long term (current) use of inhaled steroids; Z79.82 Long term (current) use of aspirin; Z88.0 Allergy status to penicillin; Z82.49 Family history of ischemic heart disease and other diseases of the circulatory system; Z81.8 Family history of other mental and behavioral disorders; Z95.5 Presence of coronary angioplasty implant and graft; Z82.5 Family history of asthma and other chronic lower respiratory diseases; Z83.79 Family history of other diseases of the digestive system; Z83.2 Family history of diseases of the blood and blood-forming organs and certain disorders involving the immune mechanism; Z85.828 Personal history of other malignant neoplasm of skin; Z98.42 Cataract extraction status, left eye; Z98.41 Cataract extraction status, right eye; Z87.440 Personal history of urinary (tract) infections; Z90.89 Acquired absence of other organs
CPT/HCPCS: 36415; 71045; 71046; 80048; 80053; 81001; 83605; 83735; 83880; 84443; 84484; 85025; 85610; 85730; 87040; 93005; 93306; 94640; 94660; 96365; 96366; 96375; 96376; 99285